=== PATIENT | female | born 1940 | race Caucasian/White ===

== ENCOUNTER 2022-05-05 11:21 | Outpatient (CLI) | payer MEDICARE, SELFPAY | END 2022-05-05 11:22 | disposition home or self-care (01) | LOC: AMB 05-13 12:50 | PROVIDERS: Visit Provider Family Medicine | DX: R42 Dizziness and giddiness (principal); R11.2 Nausea with vomiting, unspecified; R19.7 Diarrhea, unspecified | CPT/HCPCS: A0425; A0427 ==

== ENCOUNTER 2022-05-05 12:02 | Emergency (ER) | payer MEDICARE, SELFPAY ==
[2022-05-05] VITALS (9 sets, daily range): BP systolic 99–169; BP diastolic 44–69; PULSE 61–79; RESP 13–18; TEMP 36.3; O2SAT 96–100; BMI 21.5
--- NOTE | 2022-05-05 12:14 | ED_ITS ---
HPI - General Adult General Time Seen by Provider: 12:14 Date Seen: 05/05/22 Chief complaint: Nausea/Vomiting Stated complaint: Nausea, dizzy Time Seen by Provider: 05/05/22 12:05 Source: patient, EMS and RN notes reviewed Mode of arrival: EMS Limitations: no limitations History of Present Illness HPI narrative: Patient is a 81-year-old female brought in by ambulance for sudden onset of nausea vomiting. She states she has dizzy. It is not so much is spinning. She has had vertigo before but this is more a sense of feeling like she is moving. She does feels like she cannot control her body and it is continually moving. All of these symptoms hit her suddenly sometime she thinks between 9 and 10:00 p.m. she is not exactly sure of the time. She has just had profuse ongoing vomiting. It helps to hold still and keep her eye shut. There is some diarrhea. She was exposed to COVID about 4 days ago. She has had her COVID immunizations, has had boosters. No fevers chills, no respiratory symptoms associated with this. No numbness tingling or weakness per se but absolutely does not think she would be able to toe walk. EMS was called due to the severit y of her symptoms. They did give her 4 mg IV Zofran in route, obviously started an IV. They had a 500 mL normal saline bag hanging as well. No abdominal pain, no headache. Related Data Previous Rx's Medication Instructions Recorded ondansetron 4 mg disintegrating 4 mg PO Q6H #10 tabs 05/05/22 tablet Allergies Allergy/AdvReac Type Severity Reaction Status Date / Time No Known Drug Allergies Allergy Verified 05/05/22 12:49 Review of Systems Status of ROS: Reports: 10 or more systems reviewed and unremarkable except as noted in History and below PFSH PFSH Social History Smoking Status: Never smoker Do you use any of these nicotine containing products: None Second hand tobacco smoke exposure: No How often do you have a drink containing alcohol: monthly or less How many standard drinks containing alcohol do you have on a typical day: 1 or 2 How often do you have six or more drinks on one occasion: Never AUDIT-C Alcohol total score: 1 Non-prescribed substance use: denies use service: No Exam Const: Vital Signs, click to edit/add: Vital Signs - 24 hr 05/05/22 12:11 05/05/22 13:04 05/05/22 12:47 Temperature 97.3 F L Pulse Rate [Right Pulse Oximeter] 73 67 75 Respiratory Rate 18 16 14 Blood Pressure [Ri ght Upper Arm] 169/68 H 120/50 L 115/57 L Pulse Oximetry 96 100 97 Oxygen Delivery Me thod Room Air Room Air Room Air 05/05/22 14:30 05/05/22 14:00 05/05/22 13:30 Temperature Pulse Rate [Right Pulse Oximeter] 61 61 61 Respiratory Rate 14 Blood Pressure [Ri ght Upper Arm] 121/59 L 115/55 L 99/44 L Pulse Oximetry 98 98 97 Oxygen Delivery Me thod Room Air Room Air Room Air Documenting provider has reviewed patient's vital signs: yes Common normals: average body habitus, oriented x3, healthy appearing and alert General appearance: cooperative and in distress mild HENMT: Common normals: normocephalic, head/scalp atraumatic, hearing grossly normal bilaterally, external ears normal, external nose normal, nasal mucous membranes and turbinates normal, moist oral mucous membranes, oropharynx normal, dentition normal and gingiva normal Head and scalp: normocephalic and atraumatic Nose: external nose normal and nasal mucous membranes and turbinates normal External ear: external ears normal Eye: Common normals: PERRL, EOMs intact bilaterally (Do not elicit any nystagmus), conjunctivae normal and no scleral icterus Conjunctiva: conjunctiva(e) normal Pupil: PERRL Neck & C-Spine: Common normals: full ROM, no lymphadenopathy, supple, no meningeal signs, no JVD and thyroid normal Thyroid: thyroid normal Resp: Common normals: normal respiratory effort, no retractions, no use of accessory muscles and clear to auscultation bilaterally Auscultation: clear to auscultation bilaterally Cardio: Common normals: no JVD, regular rate, regular rhythm, S1 normal heart sound, S2 normal heart sound, no gallops, no clicks, no murmurs and no rub Rate: regular rate Rhythm: regular rhythm Heart sounds: S1 normal and S2 normal GI: Common normals: Normal to inspection, nondistended, normoactive bowel sounds present, soft to palpation, non-tender, no hepatosplenomegaly and no masses Palpation: soft and no hepatosplenomegaly Extremity: Common normals: normal to inspection, full ROM, normal capillary refill, no joint enlargement, no clubbing, cyanosis or edema, no calf tenderness and no pedal edema Neuro: [place] Coma Scale: document GCS findings Era coma scale eye opening: Spontaneous (4) Era coma scale verbal response: Orientated (5) Era coma scale motor response: Obey commands (6) [place] coma scale total score: 15 Common normals: oriented x3, CN's II-XII intact bilaterally, moves all extremities, no focal motor deficits and no sensory deficits noted Sensorium/orientation: alert Meningeal signs: no meningeal signs Skin: Common normals: no rashes or lesions noted, no wounds, skin turgor normal, no jaundice, no petechiae and no mottling General skin exam: no rashes or lesions noted and turgor normal Course Course Hospital Course: She will be on cardiac monitoring, pulse oximetry. Will finish the 500 mL fluids, give her 0.5 mg IV Ativan and see how she does. She still feeling significant nausea and had reported the an emesis of undigested food on arrival here. Will get appropriate labs. If the Ativan does help settle her symptoms, will try oral meclizine. Have done COVID testing. This sounds to be more consistent with a vertiginous type issue. She is unsure of the time frame we are probably somewhere within 3-4 hours of onset of symptoms. Vascular disease is 1 of the potential etiologies, would need to consider an MRI to better differentiate this. This time will will see if we can control her symptoms with medications, for unsuccessful may need to consider more advanced neuro imaging. Reevaluation(s) Reevaluation #1: Patient is check done, states she is still feeling nauseated but no longer is hanging onto emesis bag. She is resting more comfortably. She states she just feels really tired and weak. She indeed had more than 1 episode of diarrhea with the symptoms prior to arrival. She states they came on so suddenly that was sister shocked her system. When asked if she was still feeling dizzy, she states it was never spinning sensation it is just her equilibrium is off. She is still reportedly feeling this disequilibrium and nausea. I am going to order meclizine, await some of her labs. Overall clinically she looks like she is doing a bit better. Time: 13:18 Reevaluation #2: Patient's family members are with her as her COVID is come back negative. She is doing better. She rested. She states the sense of disequilibrium is a feeling that she is being pulled. Her nausea vomiting diarrhea at this time have abated. Have reviewed with her that this most logically is a gastroenteritis type picture, hopefully viral in short-lived. Given the fact that she was having diarrhea with this, it really does point more to a GI etiology. She has no fevers, no abdominal pain, do not feel imaging is necessary. We are going to ambulate her and see if she feels improved enough to go home. My plan will be to discharge her home with some Zofran knowing that symptoms might be present if this is a GI bug. Time: 14:45 Reevaluation #3: Ran into patient as she is ambulating in the halls. She is very verbose and talkative. She is ambulatory without any aids in states her imbalanced is better. She is worried about return of vomiting and reviewed with her that that certainly could happen but we would send her with some Zofran. She has not had any emesis since arrival. I a.m. think at this time it is safe to do a trial of ongoing management at home. She understands if her symptoms do worsen that she is always able to return to our ED. Time: 15:25 Vital Signs Vital signs: Initial Vital Signs Temperature 97.3 F L 05/05/22 12:11 Temperature Source Temporal Artery Scan 05/05/22 12:11 Pulse Rate 73 05/05/22 12:11 Respiratory Rate 18 05/05/22 12:11 Blood Pressure 169/68 H 05/05/22 12:11 Blood Pressure Mean 101 05/05/22 12:11 Blood Pressure Position Sitting 05/05/22 12:11 Pulse Oximetry 96 05/05/22 12:11 Oxygen Delivery Method 05/05/22 12:11 Vital Signs Temperature 97.3 F L 05/05/22 12:11 Pulse Rate 73 05/05/22 12:11 Respiratory Rate 18 05/05/22 12:11 Blood Pressure 169/68 H 05/05/22 12:11 Pulse Oximetry 96 05/05/22 12:11 Oxygen Delivery Method 05/05/22 12:11 Temperature 97.3 F L 05/05/22 12:11 Pulse Rate 61 05/05/22 14:30 Respiratory Rate 14 05/05/22 14:00 Blood Pressure 121/59 L 05/05/22 14:30 Pulse Oximetry 98 05/05/22 14:30 Oxygen Delivery Method 05/05/22 14:30 Medical Decision Making Lab Data Lab results reviewed: Yes I reviewed the patient's lab results Labs: Lab Results 05/05/22 05/05/22 05/05/22 Range/Units 12:10 12:52 12:52 WBC 6.36 (4.50-11.00) K/uL RBC 4.09 (4.00-5.20) m/uL Hgb 12.9 (12.0-16.0) gm/dL Hct 40.0 (33.0-51.0) % MCV 98 (80-100) fL MCH 32 (26-34) pg MCHC 32 (32-36) gm/dL RDW Coeff of Norbert 12.9 (11.5-15.5) % Plt Count 183 (140-440) K/uL Neut % (Auto) 83.9 H (42.0-72.0) % Lymph % (Auto) 9.6 L (20-44) % [place] % (Auto) 4.4 (0.0-11.0) % Eos % (Auto) 1.1 (0.0-7.0) % Baso % (Auto) 0.5 (0.0-3.0) % Neut # (Auto) 5.30 (1.7-7.0) K/uL Lymph # (Auto) 0.60 L (0.90-2.90) K/uL [place] # (Auto) 0.30 (0.00-0.90) K/UL Eos # (Auto) 0.07 (0.00-0.50) K/uL Baso # (Auto) 0.03 (0.00-0.30) K/uL Abs Immat Gran (auto) 0.03 (0.00-0.30) K/uL Sodium 139 (135-149) mmol/L Potassium 4.1 (3.6-5.1) mmol/L Chloride 103 (96-114) mmol/L Carbon Dioxide 29 (20-32) mmol/L BUN 27 (7-30) mg/dL Creatinine 0.7 (0.5-1.5) mg/dL Estimated Creat Clear 32.23 Estimated GFR 87 ml/min Glucose 177 H (60-115) mg/dL Calcium 8.8 (8.4-10.6) mg/dL Magnesium (1.5-2.6) mg/dL Total Bilirubin 0.5 (0.1-1.5) mg/dL AST 24 (12-35) U/L ALT 16 (4-35) U/L Alkaline Phosphatase 79 (40-150) U/L C-Reactive Protein < 0.5 L (0.5-1.0) mg/dL Total Protein 7.1 (6.0-8.3) g/dL Albumin 4.3 (3.3-5.0) g/dL TSH (0.270-4.200) uIU/mL SARS-CoV-2 (PCR) Negative SARS-CoV-2 (Negative) 05/05/22 05/05/22 Range/Units 12:52 12:52 WBC (4.50-11.00) K/uL RBC (4.00-5.20) m/uL Hgb (12.0-16.0) gm/dL Hct (33.0-51.0) % MCV (80-100) fL MCH (26-34) pg MCHC (32-36) gm/dL RDW Coeff of Norbert (11.5-15.5) % Plt Count (140-440) K/uL Neut % (Auto) (42.0-72.0) % Lymph % (Auto) (20-44) % [place] % (Auto) (0.0-11.0) % Eos % (Auto) (0.0-7.0) % Baso % (Auto) (0.0-3.0) % Neut # (Auto) (1.7-7.0) K/uL Lymph # (Auto) (0.90-2.90) K/uL [place] # (Auto) (0.00-0.90) K/UL Eos # (Auto) (0.00-0.50) K/uL Baso # (Auto) (0.00-0.30) K/uL Abs Immat Gran (auto) (0.00-0.30) K/uL Sodium (135-149) mmol/L Potassium (3.6-5.1) mmol/L Chloride (96-114) mmol/L Carbon Dioxide (20-32) mmol/L BUN (7-30) mg/dL Creatinine (0.5-1.5) mg/dL Estimated Creat Clear Estimated GFR ml/min Glucose (60-115) mg/dL Calcium (8.4-10.6) mg/dL Magnesium 1.9 (1.5-2.6) mg/dL Total Bilirubin (0.1-1.5) mg/dL AST (12-35) U/L ALT (4-35) U/L Alkaline Phosphatase (40-150) U/L C-Reactive Protein (0.5-1.0) mg/dL Total Protein (6.0-8.3) g/dL Albumin (3.3-5.0) g/dL TSH 0.997 (0.270-4.200) uIU/mL SARS-CoV-2 (PCR) (Negative) ECG Data Attestation: I personally reviewed and interpreted this ECG as follows: (Sinus rhythm, 71 beats per minute. No acute abnormality.) Prior ECG tracings: not available for review Critical Care Time Critical Care Time Critical Care Time: No Discharge Plan Discharge Clinical Impression: Gastroenteritis Patient Disposition: Home, Self-Care Condition: Stable Instructions: Gastroenteritis (ED) Additional Instructions: Start with frequent sips of clear liquids overnight, if feeling better in the morning can try advancing your diet back to normal. Can not use the Zofran as prescribed if your nausea and vomiting return. If the Zofran is not controlling these symptoms, develops severe abdominal pain or fever with UR symptoms, do need to seek re-evaluation. Activity Level: Activity as Tolerated Prescriptions: New ondansetron 4 mg tablet,disintegrating 4 mg PO Q6H Qty: 10 0RF Stand Alone Forms: [facility] Info Instructions
[2022-05-05] MEDS: LORazepam 2 MG/ML inj 0.5 MG IVP (12:50)
[2022-05-05 13:01] LABS: Basophils Absolute Auto 0.03 K/uL (0.00-0.30); Basophils Percent Auto 0.5 % (0.0-3.0); Eosinophils Absolute Auto 0.07 K/uL (0.00-0.50); Eosinophils Percent Auto 1.1 % (0.0-7.0); Hemoglobin* 12.9 gm/dL (12.0-16.0); Immature Granulocytes Abs Auto 0.03 K/uL (0.00-0.30); Lymphocytes Percent Auto 9.6 % (20-44); Mean Corpuscular HGB Conc 32 gm/dL (32-36); Mean Corpuscular Hemoglobin 32 pg (26-34); Mean Corpuscular Volume 98 fL (80-100); Monocytes Percent Auto 4.4 % (0.0-11.0); Neutrophils Percent Auto 83.9 % (42.0-72.0); Platelet Count* 183 K/uL (140-440); RDW Coefficient of Variation % 12.9 % (11.5-15.5); Red Blood Count 4.09 m/uL (4.00-5.20); White Blood Count* 6.36 K/uL (4.50-11.00)
[2022-05-05 13:05] LABS: Slide Review Reflex No
[2022-05-05 13:14] LABS: SARS PCR* Negative SARS-CoV-2 (Negative)
[2022-05-05 13:15] LABS: Albumin* 4.3 g/dL (3.3-5.0); Chloride* 103 mmol/L (96-114); Sodium* 139 mmol/L (135-149)
[2022-05-05 13:16] LABS: Potassium* 4.1 mmol/L (3.6-5.1)
[2022-05-05 13:18] LABS: Creatinine* 0.7 mg/dL (0.5-1.5); Est. Creatinine Clearance* 32.23; Estimated Glomerular Filt Rate 87 ml/min
[2022-05-05 13:19] LABS: Alanine Aminotransferase* 16 U/L (4-35); Alkaline Phosphatase* 79 U/L (40-150); Aspartate Amino Transferase* 24 U/L (12-35); Bilirubin Total* 0.5 mg/dL (0.1-1.5); Blood Urea Nitrogen* 27 mg/dL (7-30); Calcium* 8.8 mg/dL (8.4-10.6); Carbon Dioxide* 29 mmol/L (20-32); Glucose* 177 mg/dL (60-115); Total Protein* 7.1 g/dL (6.0-8.3)
[2022-05-05 13:20] LABS: Magnesium* 1.9 mg/dL (1.5-2.6)
[2022-05-05 13:23] LABS: C Reactive Protein* < 0.5 mg/dL (0.5-1.0)
[2022-05-05] MEDS: 0.9 % SODIUM CHLORIDE 500 ML 500 ML IV (13:43)
[2022-05-05] MEDS: MECLIZINE HCL 25 MG TABLET PO (13:45)
[2022-05-05 14:03] LABS: TSH With Reflex to FT4* 0.997 uIU/mL (0.270-4.200)
--- NOTE | 2022-05-05 15:20 | ED.NURSE ---
was able to walk around the nurses' station. does have osteoporosis and curvature of the neck. dr kraft saw here and is ok with dc. no further nausea. feels as though she may go home. in room and is very supportive,
--- NOTE | 2022-05-07 17:16 | ED.NURSE ---
[facility] called for details on rx for Zofran. Details from [facility] info provided to [facility] pharmacist
== END 2022-05-05 15:46 | disposition home or self-care (01) ==
PROVIDERS: Emergency Provider Family Medicine
DX: K52.9 Noninfective gastroenteritis and colitis, unspecified (principal)
CPT/HCPCS: 36415; 80053; 83735; 84443; 85025; 86140; 87635; 93005; 96374; 99284; A9270; J2060; J7120

== ENCOUNTER 2022-05-10 11:08 | Emergency (ER) | payer MEDICARE, SELFPAY ==
[2022-05-10 11:13] VITALS: BP 190/94; PULSE 91; RESP 20; TEMP 36; O2SAT 98; BMI 22.2
--- NOTE | 2022-05-10 12:11 | CRLHL7_ITS ---
For Patients: As a result of the Century Cures Act, medical imaging exams and procedure reports are released immediately into your electronic medical record. You may view this report before your referring provider. If you have questions, please contact your health care provider. HISTORY: Pain. Constipation. TECHNIQUE: CT abdomen and pelvis with IV contrast. 54 mL [id number] IV. COMPARISON: None. FINDINGS: Abdomen: No liver lesions. No bile duct dilation. No pancreatic mass or pancreatic duct dilation. Calcified granulomas in the spleen. No adrenal nodules. Kidneys enhance symmetrically. 3.2 cm cyst in the mid right kidney. 2.2 cm cyst in the mid left kidney. A few subcentimeter hypodense lesions in the kidneys are too small to characterize but are likely cysts. Prominent extrarenal pelvis bilaterally. No hydronephrosis. No dilated bowel. Moderate amount of stool in the colon. Appendix is unremarkable. No free fluid. No lymphadenopathy. Atherosclerosis. Abdominal aorta is normal caliber. Pelvis: No lymphadenopathy. Musculoskeletal: Degenerative changes of the spine. Lower chest: Mild subpleural scarring in the right middle lobe. IMPRESSION: 1. No acute abnormality in the abdomen or pelvis. 2. Moderate amount of stool in the colon. Please note that all CT scans at this facility use dose modulation, iterative reconstruction, and/or weight-based dosing when appropriate to reduce radiation dose to as low as reasonably achievable. Dictated by Macio Benítez MD @ 05/10/2022 2:17:11 PM (Electronically Signed)
--- NOTE | 2022-05-10 12:17 | ED_ITS ---
HPI - General Adult General Chief complaint: Constipation Stated complaint: Abdominal Pain Time Seen by Provider: 05/10/22 11:15 History of Present Illness HPI narrative: This 81-year-old female comes in with family member and reports constipation with no bowel movement for the past 5 days. She was seen 5 days ago in the emergency room here because of diarrhea and vertigo symptoms. She states that she has been having ongoing bowel issues for the past couple months and has had recurrent constipation symptoms. She did receive a large enema that was effective a couple months ago but she feels like something is wrong since then. She states that she is concerned that she may have a perforation. She thinks that her rectum is shredded. She is frequently repeating herself and often is interrupting to do so. She has a fair amount of anxiety about her bowels. She arrives with normal vital signs. Her blood pressure is elevated. Related Data Previous Rx's Medication Instructions Recorded ondansetron 4 mg disintegrating 4 mg PO Q6H #10 tabs 05/05/22 tablet Allergies Allergy/AdvReac Type Severity Reaction Status Date / Time No Known Drug Allergies Allergy Verified 05/10/22 13:48 Review of Systems Status of ROS: Reports: 10 or more systems reviewed and unremarkable except as noted in History and below Narrative: Constitutional: No fevers, no weight gain or loss. Eyes: No discharge. No vision changes. HENT: No congestion, no sore throat, no ear pain. Cardiovascular: No chest pain, no palpitations. Respiratory: No shortness of breath, no wheezes, no cough. Gastrointestinal: Crampy abdominal pain. Constipation. She has had some nausea but has had a normal appetite recently. Genitourinary: No dysuria, no hematuria. Musculoskeletal: Normal range of motion. Skin: No rashes, no pruritis. Neurological: No dizziness, weakness, sensory change, speech change. Endo/Heme/Allergies: No bruising or bleeding. No polydipsia. Pysch: no suicidality, no anxiety, no insomnia. All other systems reviewed and are negative. PFSH PFSH Social History Smoking Status: Never smoker Do you use any of these nicotine containing products: None Second hand tobacco smoke exposure: No How often do you have a drink containing alcohol: monthly or less How many standard drinks containing alcohol do you have on a typical day: 1 or 2 How often do you have six or more drinks on one occasion: Never AUDIT-C Alcohol total score: 1 Non-prescribed substance use: denies use service: No Exam Narrative: Exam Narrative: Constitutional: Well-developed, well-nourished, no acute distress. HEENT: Normocephalic, atraumatic. Neck: Normal range of motion. Nontender. Supple. Heart: Regular. No murmurs. Normal rate. Intact distal pulses. Lungs: Clear to auscultation. No chest discomfort. No wheezes, rhonchi, or rales. Abdomen: Normal bowel sounds. No distinct tenderness. Her abdomen does not appear distended. No rebound tenderness. Genitalia: Deferred. Back: No midline tenderness. Normal range of motion. Extremities: Normal range of motion. No injury. Skin: Intact. No rash. Warm. No erythema or pallor. Neurologic: No altered sensation. No weakness. Alert and oriented. Psychiatric: No suicidality. No depression. No insomnia. She appears very anxious about her abdomen and bowel function. Nursing notes and vitals signs are reviewed. Const: Vital Signs, click to edit/add: Vital Signs - 24 hr 05/10/22 11:13 Temperature 96.8 F L Pulse Rate [Pulse Oximeter] 91 Respiratory Rate 20 Blood Pressure [Ri ght Upper Arm] 190/94 H Pulse Oximetry 98 Oxygen Delivery Me thod Room Air Course Vital Signs Vital signs: Initial Vital Signs Temperature 96.8 F L 05/10/22 11:13 Temperature Source Temporal Artery Scan 05/10/22 11:13 Pulse Rate 91 05/10/22 11:13 Respiratory Rate 20 05/10/22 11:13 Blood Pressure 190/94 H 05/10/22 11:13 Blood Pressure Mean 126 05/10/22 11:13 Blood Pressure Position Supine 05/10/22 11:13 Pulse Oximetry 98 05/10/22 11:13 Oxygen Delivery Method 05/10/22 11:13 Vital Signs Temperature 96.8 F L 05/10/22 11:13 Pulse Rate 91 05/10/22 11:13 Respiratory Rate 20 05/10/22 11:13 Blood Pressure 190/94 H 05/10/22 11:13 Pulse Oximetry 98 05/10/22 11:13 Oxygen Delivery Method 05/10/22 11:13 Temperature 96.8 F L 05/10/22 11:13 Pulse Rate 91 05/10/22 11:13 Respiratory Rate 20 05/10/22 11:13 Blood Pressure 190/94 H 05/10/22 11:13 Pulse Oximetry 98 05/10/22 11:13 Oxygen Delivery Method 05/10/22 11:13 Medical Decision Making MDM Narrative Medical decision making narrative: This patient comes in reporting constipation and variety of symptoms for which she is rather anxious about. She was seen 5 days ago and had labs done at that time. Her exam is rather normal and she is not showing any signs of an acute abdomen. Nevertheless given her anxiety and constellation of worries and concerns about her abdomen I ordered a CT scan with IV contrast. This returns with no acute findings. She does have a moderate amount of stool in the colon. Additionally lab results are in normal range including a normal sed rate. The patient was able to have a bowel movement but states that she was afraid to do so without having a nurse nearby NK she symptoms of vertigo or lightheadedness. She feels okay to return home at this time to continue current plans. I advised using fiber additive to her diet to help normalize her stools. Lab Data Labs: Lab Results 05/10/22 05/10/22 05/10/22 Range/Units 12:25 12:25 12:25 WBC 3.72 L (4.50-11.00) K/uL RBC 4.41 (4.00-5.20) m/uL Hgb 13.8 (12.0-16.0) gm/dL Hct 42.3 (33.0-51.0) % MCV 96 (80-100) fL MCH 31 (26-34) pg MCHC 33 (32-36) gm/dL RDW Coeff of Norbert 12.6 (11.5-15.5) % Plt Count 209 (140-440) K/uL Neut % (Auto) 67.2 (42.0-72.0) % Lymph % (Auto) 21.8 (20-44) % [place] % (Auto) 8.3 (0.0-11.0) % Eos % (Auto) 1.6 (0.0-7.0) % Baso % (Auto) 0.8 (0.0-3.0) % Neut # (Auto) 2.50 (1.7-7.0) K/uL Lymph # (Auto) 0.80 L (0.90-2.90) K/uL [place] # (Auto) 0.30 (0.00-0.90) K/UL Eos # (Auto) 0.10 (0.00-0.50) K/uL Baso # (Auto) 0.00 (0.00-0.30) K/uL Abs Immat Gran (auto) 0.01 (0.00-0.30) K/uL ESR 12 (2-20) mm/hr Sodium 140 (135-149) mmol/L Potassium 4.0 (3.6-5.1) mmol/L Chloride 102 (96-114) mmol/L Carbon Dioxide 32 (20-32) mmol/L BUN 21 (7-30) mg/dL Creatinine 0.7 (0.5-1.5) mg/dL Estimated Creat Clear 35.34 Estimated GFR 87 ml/min Glucose 106 (60-115) mg/dL Calcium 9.5 (8.4-10.6) mg/dL Imaging Data CT scan - abdomen: Radiologist's impression: 1. No acute abnormality in the abdomen or pelvis. 2. Moderate amount of stool in the colon. Discharge Plan Discharge Clinical Impression: Constipation Condition: Stable Instructions: Constipation (ED) Additional Instructions: Continue current plans. Follow up with primary providers as needed and scheduled. Return if worsening. Prescriptions: No Action ondansetron 4 mg tablet,disintegrating 4 mg PO Q6H Qty: 10 0RF Follow Up/Referrals: Provider,Not a Local [Primary Care Provider] - Stand Alone Forms: [facility] Info Instructions
[2022-05-10 12:47] LABS: Basophils Percent Auto 0.8 % (0.0-3.0); Eosinophils Percent Auto 1.6 % (0.0-7.0); Hematocrit 42.3 % (33.0-51.0); Hemoglobin* 13.8 gm/dL (12.0-16.0); Immature Granulocytes Abs Auto 0.01 K/uL (0.00-0.30); Lymphocytes Percent Auto 21.8 % (20-44); Mean Corpuscular HGB Conc 33 gm/dL (32-36); Mean Corpuscular Hemoglobin 31 pg (26-34); Mean Corpuscular Volume 96 fL (80-100); Monocytes Percent Auto 8.3 % (0.0-11.0); Neutrophils Percent Auto 67.2 % (42.0-72.0); Platelet Count* 209 K/uL (140-440); RDW Coefficient of Variation % 12.6 % (11.5-15.5); Red Blood Count 4.41 m/uL (4.00-5.20); White Blood Count* 3.72 K/uL (4.50-11.00)
[2022-05-10 12:54] LABS: Slide Review Reflex No
[2022-05-10 13:01] LABS: Chloride* 102 mmol/L (96-114); Sodium* 140 mmol/L (135-149)
[2022-05-10 13:04] LABS: Creatinine* 0.7 mg/dL (0.5-1.5); Est. Creatinine Clearance* 35.34; Estimated Glomerular Filt Rate 87 ml/min
[2022-05-10 13:05] LABS: Blood Urea Nitrogen* 21 mg/dL (7-30); Calcium* 9.5 mg/dL (8.4-10.6); Carbon Dioxide* 32 mmol/L (20-32); Glucose* 106 mg/dL (60-115)
[2022-05-10 13:52] LABS: Erythrocyte SedimentationRate* 12 mm/hr (2-20)
[2022-05-10 15:45] VITALS: BP 146/82; PULSE 88; RESP 18; TEMP 36.1
== END 2022-05-10 15:48 | disposition home or self-care (01) ==
PROVIDERS: Emergency Provider Emergency Medicine Emergency Medical Services
DX: K59.00 Constipation, unspecified (principal)
CPT/HCPCS: 36415; 74177; 80048; 84443; 85025; 85651; 99284; Q9967

== ENCOUNTER 2023-06-25 16:28 | Outpatient (CLI) | payer MEDICARE, SELFPAY | END 2023-06-25 16:29 | disposition home or self-care (01) | LOC: AMB 06-27 11:04 | PROVIDERS: PCP Family Medicine; Visit Provider Family Medicine | DX: R42 Dizziness and giddiness (principal); I10 Essential (primary) hypertension | CPT/HCPCS: A0425; A0427 ==

== ENCOUNTER 2023-06-25 16:58 | Emergency (ER) | payer MEDICARE, SELFPAY ==
[2023-06-25] VITALS (12 sets, daily range): BP systolic 140–165; BP diastolic 67–85; PULSE 67–81; TEMP 36.6; O2SAT 95–98; BMI 20.9
--- NOTE | 2023-06-25 17:00 | ED.NURSE ---
stroke code called per pt meeting criteria, (dizziness and over the age of 65)
--- NOTE | 2023-06-25 17:04 | ED.NURSE ---
gave verbal order to cancel stroke code after evaluation.
--- NOTE | 2023-06-25 17:13 | ED.DIZZY ---
HPI - Dizziness General Chief Complaint: Dizziness/Vertigo Stated Complaint: Dizzy Time Seen by Provider: 06/25/23 17:07 History of Present Illness HPI Narrative: This 83-year-old female comes in by ambulance after attempting to call clinic when she was describing some symptoms of dizziness. The phone referral nurse said she should come into the emergency department by ambulance. She states that she felt dizzy when getting up but if she remains still she does not have any disease symptoms. She clarifies dizziness to mean vertigo, a sense of spinning or movement. She had some associated nausea with this. She does not report any headache or injury event. She did receive Zofran EN route and states that she no longer has any nausea which is related to her vertigo symptoms. She does not have any vertigo symptoms currently. She does not report any headache. She states that she had a recent MRI. She states that this vertigo symptoms started at about 1:00 a.m. which is a bit more than 4 hours prior to arrival here. She does not describe any weakness or altered sensation. Related Data Previous Rx's Medication Instructions Recorded meclizine 25 mg tablet 25 mg PO QID #20 tabs 06/25/23 ondansetron HCl 4 mg tablet 4 mg PO Q6H #20 tabs 06/25/23 Allergies Allergy/AdvReac Type Severity Reaction Status Date / Time pseudoephedrine AdvReac Intermediate Hypertensio Verified 06/25/23 17:12 n amoxicillin AdvReac Mild Verified 06/25/23 17:12 ibuprofen AdvReac Mild Palpitation Verified 06/25/23 17:12 s levofloxacin AdvReac Verified 06/25/23 17:12 Review of Systems Status of ROS: Reports: 10 or more systems reviewed and unremarkable except as noted in History and below Narrative: Constitutional: No fevers, no weight gain or loss. Eyes: No discharge. No vision changes. HENT: No congestion, no sore throat, no ear pain. Cardiovascular: No chest pain, no palpitations. Respiratory: No shortness of breath, no wheezes, no cough. Gastrointestinal: No abdominal pain, no vomiting, no diarrhea. Genitourinary: No dysuria, no hematuria. Musculoskeletal: Normal range of motion. Skin: No rashes, no pruritis. Neurological: No weakness, sensory change, speech change. Vertigo symptoms as described above. Endo/Heme/Allergies: No bruising or bleeding. No polydipsia. Pysch: no suicidality, no anxiety, no insomnia. All other systems reviewed and are negative. PFSH PFSH Social History Smoking Status: Never smoker Do you use any of these nicotine containing products: None Second hand tobacco smoke exposure: No How often do you have a drink containing alcohol: monthly or less How many standard drinks containing alcohol do you have on a typical day: 1 or 2 How often do you have six or more drinks on one occasion: Never AUDIT-C Alcohol total score: 1 Non-prescribed substance use: denies use service: No Exam Narrative: Exam Narrative: Constitutional: Well-developed, well-nourished, no acute distress. HEENT: Normocephalic, atraumatic. Neck: Normal range of motion. Nontender. Supple. Heart: Regular. No murmurs. Normal rate. Intact distal pulses. Lungs: Clear to auscultation. No chest discomfort. No wheezes, rhonchi, or rales. Abdomen: Normal bowel sounds. Nontender. No rebound tenderness. Genitalia: Deferred. Back: No midline tenderness. Normal range of motion. Extremities: Normal range of motion. No injury. Skin: Intact. No rash. Warm. No erythema or pallor. Neurologic: No altered sensation. No weakness. Alert and oriented. No facial asymmetry. Tongue is midline. Cgcnaq-[id number] is normal. No pronator drift. Sheriff strength is equal bilaterally. She is able to raise each leg to my hand without difficulty. Psychiatric: No suicidality. No anxiety or depression. No insomnia. Nursing notes and vitals signs are reviewed. Const: Vital Signs, click to edit/add: Vital Signs - 24 hr 06/25/23 17:04 06/25/23 17:05 06/25/23 17:12 Temperature 97.8 F Pulse Rate 79 81 Pulse Rate [Pulse Oximeter] 75 Blood Pressure 165/78 H Blood Pressure [Le ft Upper Arm] 165/78 H Pulse Oximetry 95 97 98 Oxygen Delivery Me thod Room Air 06/25/23 17:30 06/25/23 17:32 06/25/23 18:00 Temperature Pulse Rate 71 67 78 Pulse Rate [Pulse Oximeter] Blood Pressure 140/67 H Blood Pressure [Le ft Upper Arm] Pulse Oximetry 95 95 97 Oxygen Delivery Me thod 06/25/23 18:02 Temperature Pulse Rate 70 Pulse Rate [Pulse Oximeter] Blood Pressure 154/72 H Blood Pressure [Le ft Upper Arm] Pulse Oximetry 97 Oxygen Delivery Me thod Course Vital Signs Vital signs: Initial Vital Signs Pulse Rate 79 06/25/23 17:04 Blood Pressure 165/78 H 06/25/23 17:04 Blood Pressure Mean 107 H 06/25/23 17:04 Pulse Oximetry 95 06/25/23 17:04 Vital Signs Pulse Rate 79 06/25/23 17:04 Blood Pressure 165/78 H 06/25/23 17:04 Pulse Oximetry 95 06/25/23 17:04 Temperature 97.8 F 06/25/23 17:12 Pulse Rate 70 06/25/23 18:02 Blood Pressure 154/72 H 06/25/23 18:02 Pulse Oximetry 97 06/25/23 18:02 Oxygen Delivery Method Room Air 06/25/23 17:12 MDM - Dizziness MDM Narrative Medical decision making narrative: This patient arrives with a report of dizziness which she clarifies as vertigo symptoms that occur only when she stands up. She does not report lightheadedness but rather a sense of movement that is positional. Because she reported dizziness a stroke code was initiated. IA presented to the room immediately after the stroke code was announced and did an evaluation. She is not showing any sign of neurologic deficit. Her GCS is 15. I called off the stroke code seeing her normal functions and exam. The patient states that she had an MRI done recently. This report was reviewed by me which shows no acute findings. Lab results returned with reassuring findings also. The patient is not showing any signs of discomfort. She did receive an oral dose of Zofran EN route here and after arriving she received an oral dose of meclizine. The patient was able to get up and ambulate and is okay to be discharged home. She did received prescriptions for meclizine and Zofran. I advised her to follow-up with her primary physician for ongoing management. Lab Data Labs: Lab Results 06/25/23 06/25/23 Range/Units 17:20 17:39 WBC 4.95 (4.50-11.00) K/uL RBC 4.13 (4.00-5.20) m/uL Hgb 13.1 (12.0-16.0) gm/dL Hct 40.4 (33.0-51.0) % MCV 98 (80-100) fL MCH 32 (26-34) pg MCHC 32 (32-36) gm/dL RDW Coeff of Norbert 12.6 (11.5-15.5) % Plt Count 199 (140-440) K/uL Neut % (Auto) 70.1 (42.0-72.0) % Lymph % (Auto) 19.6 L (20-44) % [place] % (Auto) 7.9 (0.0-11.0) % Eos % (Auto) 1.2 (0.0-7.0) % Baso % (Auto) 0.6 (0.0-3.0) % Neut # (Auto) 3.47 (1.7-7.0) K/uL Lymph # (Auto) 1.00 (0.90-2.90) K/uL [place] # (Auto) 0.40 (0.00-0.90) K/UL Eos # (Auto) 0.06 (0.00-0.50) K/uL Baso # (Auto) 0.03 (0.00-0.30) K/uL Abs Immat Gran (auto) 0.03 (0.00-0.30) K/uL Imm/Tot Granulo (auto) 0.6 % Sodium 140 (135-149) mmol/L Potassium 4.0 (3.6-5.1) mmol/L Chloride 106 (96-114) mmol/L Carbon Dioxide 28 (20-32) mmol/L Anion Gap 6 L (7-15) mEq/L BUN 30 (7-30) mg/dL Creatinine 0.7 (0.5-1.5) mg/dL Estimated Creat Clear 35.88 Estimated GFR 86 ml/min Glucose 100 (60-115) mg/dL Calcium 9.4 (8.4-10.6) mg/dL Urine Color Yellow (Yellow) Urine Appearance Clear (Clear) Urine pH 7.0 (5.0-8.5) Ur Specific [place] 1.020 (1.000-1.030) Urine Protein Negative (Negative) Urine Glucose (UA) Negative (Negative) Urine Ketones Negative (Negative) Urine Blood Negative (Negative) Urine Nitrite Negative (Negative) Urine Bilirubin Negative (Negative) Urine Urobilinogen 0.2 (0.2-1.0) Ur Leukocyte Esterase Negative (Negative) Urine RBC 0-2 (0-2) Urine WBC 0-2 (0-5) Ur Squamous Epith Cells None (None-Few) Urine Bacteria None (None) POC Troponin I 0.00 L (0.01-0.04) ng/ml ECG Data Attestation: I personally reviewed and interpreted this ECG as follows: Interpretation: Normal sinus rhythm. Rate is 64 beats per minute. There are no ST or T-wave abnormalities. Discharge Plan Discharge Clinical Impression: Acute vestibular neuronitis Patient Disposition: Home w/ Parent or Adult Condition: Improved Additional Instructions: Take medication as needed and directed. Increase activity as tolerated. Follow up with MD return if worsening. Prescriptions: New ondansetron HCl 4 mg tablet 4 mg PO Q6H Qty: 20 0RF meclizine 25 mg tablet 25 mg PO QID Qty: 20 0RF Follow Up/Referrals: Provider,Not a Local [Referring] - Stand Alone Forms: [employer] Info Instructions
[2023-06-25 17:30] LABS: Basophils Absolute Auto 0.03 K/uL (0.00-0.30); Basophils Percent Auto 0.6 % (0.0-3.0); Eosinophils Absolute Auto 0.06 K/uL (0.00-0.50); Eosinophils Percent Auto 1.2 % (0.0-7.0); Hematocrit 40.4 % (33.0-51.0); Hemoglobin* 13.1 gm/dL (12.0-16.0); Immature Granulocytes Abs Auto 0.03 K/uL (0.00-0.30); Immature Granulocytes Pct Auto 0.6 %; Lymphocytes Percent Auto 19.6 % (20-44); Mean Corpuscular HGB Conc 32 gm/dL (32-36); Mean Corpuscular Hemoglobin 32 pg (26-34); Mean Corpuscular Volume 98 fL (80-100); Monocytes Percent Auto 7.9 % (0.0-11.0); Neutrophils Absolute Auto 3.47 K/uL (1.7-7.0); Neutrophils Percent Auto 70.1 % (42.0-72.0); Platelet Count* 199 K/uL (140-440); RDW Coefficient of Variation % 12.6 % (11.5-15.5); Red Blood Count 4.13 m/uL (4.00-5.20); White Blood Count* 4.95 K/uL (4.50-11.00)
[2023-06-25 17:43] LABS: Chloride* 106 mmol/L (96-114); Sodium* 140 mmol/L (135-149)
[2023-06-25] MEDS: MECLIZINE HCL 25 MG TABLET PO (17:43)
[2023-06-25 17:46] LABS: Anion Gap 6 mEq/L (7-15); Carbon Dioxide* 28 mmol/L (20-32); Creatinine* 0.7 mg/dL (0.5-1.5); Est. Creatinine Clearance* 35.88; Estimated Glomerular Filt Rate 86 ml/min
[2023-06-25 17:47] LABS: Blood Urea Nitrogen* 30 mg/dL (7-30); Calcium* 9.4 mg/dL (8.4-10.6); Glucose* 100 mg/dL (60-115)
[2023-06-25 17:57] LABS: Slide Review Reflex No
[2023-06-25 18:19] LABS: Appearance Urine Clear (Clear); Bilirubin Urine Negative (Negative); Blood Urine Negative (Negative); Color Urine Yellow (Yellow); Glucose Urine Negative (Negative); Ketones Urine Negative (Negative); Leukocyte Esterase Urine Negative (Negative); Nitrite Urine Negative (Negative); Protein Urine Negative (Negative); Urobilinogen Urine 0.2 (0.2-1.0)
[2023-06-25 18:29] LABS: RBC Urine 0-2 (0-2); WBC Urine 0-2 (0-5)
== END 2023-06-25 19:14 | disposition home or self-care (01) ==
PROVIDERS: Emergency Provider Emergency Medicine Emergency Medical Services; PCP Family Medicine
DX: H81.20 Vestibular neuronitis, unspecified ear (principal)
CPT/HCPCS: 36415; 80048; 81001; 84484; 85025; 93005; 99284; A9270

== ENCOUNTER 2024-04-03 16:49 | Emergency (ER) | payer MEDICARE, BC, SELFPAY ==
[2024-04-03 16:54] VITALS: BP 210/98; PULSE 95; RESP 18; TEMP 36.9; O2SAT 96; BMI 22.7
--- NOTE | 2024-04-03 17:05 | ED.GENADULT ---
HPI - General Adult General Date Seen: 04/03/24 Chief complaint: Fall/Minor Trauma Stated complaint: Fall - hit head and chest discomfort Time Seen by Provider: 04/03/24 17:05 History of Present Illness HPI narrative: This is an 83-year-old female accompanied to the ER this afternoon by her for evaluation of injuries after a ground level fall. She has a past medical history of vertigo, previous falls with multiple old cervical spine fractures, previous healed sternal fracture. She apparently had a fall on the ice that happened [place] about fiber 6 years ago leading to multiple neck fractures. She had another fall a couple years ago where her dog got into a tonsil with a larger dog and she fell and broke her sternum. It sounds like her sternum was managed conservatively and healed on its own. She fell again 6 days ago, last Wednesday, on March 28. She was in her driveway when she lost her balance and fell. It sounds like she fell and will over. She hit the back of her head against the concrete or black top and also her right shoulder and apparently hit hard enough on her shoulders that she felt her shoulder blades stuck together. She did have a occipital scalp hematoma that she can feel. She does not think she was knocked out. Since the fall she has noted some pain in her anterior chest and sternum. She says it really only hurts when she breathes deep or when she laughs. When she last she can feel the bones of her starting rubbing and moving. She spine trying to heal at home. She went to a physical therapist appointment today and when the therapist heard about the fall and the extent of the injuries her therapist insisted that she come to the ER to be checked out. Her has wanted to be checked out since last week, but she has been refusing. Related Data Home Medications ?Medication ?Instructions ?Recorded ?Confirmed aripiprazole 5 mg tablet 5 mg PO DAILY 11/07/23 11/07/23 fluticasone propionate 50 1 spray intranasal BID 11/07/23 11/07/23 mcg/actuation nasal spray,suspension Previous Rx's ?Medication ?Instructions ?Recorded meclizine 25 mg tablet 25 mg PO QID #20 tabs 06/25/23 ondansetron HCl 4 mg tablet 4 mg PO Q6H #20 tabs 06/25/23 Allergies Allergy/AdvReac Type Severity Reaction Status Date / Time pseudoephedrine AdvReac Intermediate Hypertensio Verified 11/07/23 13:56 n amoxicillin AdvReac Mild Verified 11/07/23 13:56 ibuprofen AdvReac Mild Palpitation Verified 11/07/23 13:56 s levofloxacin AdvReac Verified 11/07/23 13:56 PFSH PFSH Social History Smoking Status: Never smoker Do you use any of these nicotine containing products: None Second hand tobacco smoke exposure: No How often do you have a drink containing alcohol: monthly or less How many standard drinks containing alcohol do you have on a typical day: 1 or 2 How often do you have six or more drinks on one occasion: Never AUDIT-C Alcohol total score: 1 Non-prescribed substance use: denies use service: No Exam Narrative: Exam Narrative: Constitutional: Appears well-developed and well-nourished. Alert. Conversant, and very talkative. She is extremely detailed but somewhat non chronological historian. She is retired nurse. Non toxic. HENT: Head: She has a healing occipital/vertex scalp hematoma. No palpable underlying skull fracture. No raccoon eyes or Diaz sign. Nose: Nose normal. Mouth/Throat: Oral mucosa is clear and moist. no trismus. Pharynx normal. Tonsils symmetric. No tonsillar enlargement, erythema, or exudate. Eyes: Conjunctivae normal. EOM normal. Pupils equal, round, and reactive to light. No scleral icterus. Neck: Normal range of motion. Neck supple. No tracheal deviation present. No step-off on the cervical spine. No point tenderness but she notes that she has apparently had a previous kyphosis after her previous fractures that is now better and she has more of lordosis since last week. With a change in her cervical spine I do think C-spine imaging is necessary. Cardiovascular: Normal rate, regular rhythm. No gallop. No friction rub. No murmur heard. Symmetric radial artery pulses Pulmonary/Chest: Effort normal. No stridor. No respiratory distress. No wheezes. No rales. No rhonchi . No tenderness. Abdominal: Soft. Bowel sounds normal. No distension. No mass. No tenderness. No rebound. No guarding. Musculoskeletal: Pelvis is stable. No thoracic or lumbar spine midline tenderness. No lateral rib cage tenderness. She is tender over the anterior/mid/upper sternum but no palpable crepitus is felt on my palpation. RUE: Normal range of motion. No tenderness. No deformity LUE: Normal range of motion. No tenderness. No deformity RLE: Normal range of motion. No edema. No tenderness. No deformity LLE: Normal range of motion. No edema. No tenderness. No deformity Hips and nontender. Pelvis is stable. Femurs, thighs, lower legs, ankles, feet, knees are nontender. Neurological: Mental status normal. Attention normal. Alert and oriented x3. GCS 15. Memory normal. Speech fluent. Cognition normal. Cranial Nerves intact II-XII except I did not formally test gag or visual acuity. EOMI. Palate elevates symmetrically and tongue protrudes in the midline. 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 Finger to nose and coordination normal. Skin: Skin is warm and dry. No rash noted. No pallor. Normal capillary refill. Psychiatric: Normal mood. Anxious in speaking rapidly but polite. Interacts well with her . Const: Vital Signs, click to edit/add: Vital Signs - 24 hr 04/03/24 16:54 04/03/24 19:25 Temperature 98.4 F Pulse Rate [Right Pulse Oximeter] 95 82 Respiratory Rate 18 16 Blood Pressure [Ri ght Upper Arm] 210/98 H 147/79 H Pulse Oximetry 96 96 Oxygen Delivery Me thod Room Air Room Air Course Vital Signs Vital signs: Initial Vital Signs Temperature 98.4 F 04/03/24 16:54 Temperature Source Temporal Artery Scan 04/03/24 16:54 Pulse Rate 95 07/15/24 16:54 Respiratory Rate 18 04/03/24 16:54 Blood Pressure 210/98 H 04/03/24 16:54 Blood Pressure Mean 135 H 04/03/24 16:54 Blood Pressure Position Sitting 04/03/24 16:54 Pulse Oximetry 96 04/03/24 16:54 Oxygen Delivery Method Room Air 04/03/24 16:54 Vital Signs Temperature 98.4 F 04/03/24 16:54 Pulse Rate 95 04/03/24 16:54 Respiratory Rate 18 04/03/24 16:54 Blood Pressure 210/98 H 04/03/24 16:54 Pulse Oximetry 96 04/03/24 16:54 Oxygen Delivery Method Room Air 04/03/24 16:54 Temperature 98.4 F 04/03/24 16:54 Pulse Rate 82 04/03/24 19:25 Respiratory Rate 16 04/03/24 19:25 Blood Pressure 147/79 H 04/03/24 19:25 Pulse Oximetry 96 04/03/24 19:25 Oxygen Delivery Method Room Air 04/03/24 19:25 Medical Decision Making MDM Narrative Medical decision making narrative: 83-year-old female presenting to the ER today by private car with her for evaluation of injuries. She had a mechanical ground level accidental trip and fall on March 28. She struck the back of her head against the ground and also it sounds like she rolled and landed on her right shoulder, her back, on her left shoulder. 1. Head injury. Differential includes intracranial injuries (e.g. skull fracture, epidural hematoma, subdural hematoma, intracerebral hemorrhage, and traumatic subarachnoid hemorrhage), verses concussion or other traumatic brain injury. CT imaging was obtained and fortunately was normal. At this time it appears that the patient's symptoms are due to a concussion. The patient/family understand that they must return if any red flags appear/develop in the coming hours/days, as this may represent an indication to perform a repeat CT scan or further evaluation. I have noted that red flags include: headaches that get worse, increased drowsiness, strange behavior, repetitive speech, seizures, repeated vomiting, growing confusion, increased irritability, slurred speech, weakness or numbness, and loss of responsiveness. This information will also be provided in writing at discharge. 2. Chest injury. She is feeling some grinding and crepitus in her sternum. She has a previous sternal fracture which she thinks she re-injured. Chest CT is obtained shows no definite acute injury. She does seem to have some what appeared to be old fractures in the lower sternum that she may be feeling. At this point no sign of any acute sternal fracture, rib fracture, hemothorax, pneumothorax, or other thoracic injury. No evidence for T-spine or L-spine fracture. No evidence for other internal injury such as liver or splenic injury. 3. C-spine. Patient does have history of previous falls with previous chronic C-spine injuries. She is neurologically intact. C-spine imaging is obtained and shows age indeterminate fractures and old fractures. She is really not having much neck pain. No sign of any acute fracture that would require neck immobilization or neuro surgical intervention. She passed ambulation trial in the hallway here in the ER and is doing well. She and her are eager for discharge home. Recommended Tylenol if needed for pain if her chest is bothering her. Precautions for return to the ER. She will follow-up with her primary care and her physical therapist. Lab Data Labs: Lab Results 04/03/24 04/03/24 Range/Units 17:55 18:44 WBC 5.63 (4.50-11.00) K/uL RBC 3.99 L (4.00-5.20) m/uL Hgb 12.4 (12.0-16.0) gm/dL Hct 39.0 (33.0-51.0) % MCV 98 (80-100) fL MCH 31 (26-34) pg MCHC 32 (32-36) gm/dL RDW Coeff of Norbert 13.0 (11.5-15.5) % Plt Count 202 (140-440) K/uL Neut % (Auto) 70.6 (42.0-72.0) % Lymph % (Auto) 17.9 L (20-44) % [place] % (Auto) 9.1 (0.0-11.0) % Eos % (Auto) 1.4 (0.0-7.0) % Baso % (Auto) 0.5 (0.0-3.0) % Neut # (Auto) 3.97 (1.7-7.0) K/uL Lymph # (Auto) 1.00 (0.90-2.90) K/uL [place] # (Auto) 0.50 (0.00-0.90) K/UL Eos # (Auto) 0.08 (0.00-0.50) K/uL Baso # (Auto) 0.03 (0.00-0.30) K/uL Abs Immat Gran (auto) 0.03 (0.00-0.30) K/uL Imm/Tot Granulo (auto) 0.5 % Sodium 140 (135-149) mmol/L Potassium 4.0 (3.6-5.1) mmol/L Chloride 106 (96-114) mmol/L Carbon Dioxide 28 (20-32) mmol/L Anion Gap 6 L (7-15) mEq/L BUN 32 H (7-30) mg/dL Creatinine 0.9 (0.5-1.5) mg/dL Estimated Creat Clear 32.73 Estimated GFR 64 ml/min Glucose 101 (60-115) mg/dL Calcium 9.4 (8.4-10.6) mg/dL POC Creatinine 1.0 (0.6-1.3) mg/dl Imaging Data CT C spine: Attestation: I have reviewed the pertinent imaging results. Radiologist's impression: Impression: 1. Age-indeterminate mild superior endplate compression deformities of C7 and T1. 2. Favor chronic moderate anterior wedging deformity of C6. 3. [id number] spondylosis. CT scan - head: Attestation: I have reviewed the pertinent imaging results. Radiologist's impression: IMPRESSION: No acute intracranial abnormality. CT Chest/Ab/Pelvis: Attestation: I have reviewed the pertinent imaging results. Radiologist's impression: Impression: 1. No acute cardiopulmonary abnormality. 2. Moderate stool seen throughout the colon with minimal distal colonic diverticulosis. 3. No acute traumatic changes of the chest, abdomen or pelvis. Discharge Plan Discharge Clinical Impression: Chest wall injury, Head injury Patient Disposition: Home, Self-Care Condition: Stable Instructions: Rib Fracture (ED), Head Injury (DC) Additional Instructions: As we discussed, so far we do not see any fresh fractures in your rib cage or sternum. I suspect that the grinding your feeling in your chest is probably a re-injury of year old fracture and or any injury to the cartilage next your breast bone. The good news is these injury should heal with time and do not require surgery. If you needed, you can use Tylenol if needed for pain. Please come back to the ER right away if you have worsening pain, trouble breathing, worsening headache, nausea or vomiting, confusion, or any concerns. Prescriptions: No Action fluticasone propionate 50 mcg/actuation spray,suspension 1 spray intranasal BID aripiprazole 5 mg tablet 5 mg PO DAILY ondansetron HCl 4 mg tablet 4 mg PO Q6H Qty: 20 0RF meclizine 25 mg tablet 25 mg PO QID Qty: 20 0RF Follow Up/Referrals: Hetal Krishnamurthy DO [Primary Care Provider] - Stand Alone Forms: [facility] Info Instructions
--- NOTE | 2024-04-03 17:27 | CRLHL7_ITS ---
For Patients: As a result of the 21st Century Cures Act, medical imaging exams and procedure reports are released immediately into your electronic medical record. You may view this report before your referring provider. If you have questions, please contact your health care provider. Indication: Trauma, headaches Technique: Volumetric multidetector CT images of the chest, abdomen, and pelvis were obtained after the administration of intravenous contrast. 58 mL Isovue 370 low osmolar intravenous contrast Comparison: None available. FINDINGS: CHEST The thoracic inlet is unremarkable. The thyroid gland is within normal limits. The thoracic aorta is nonaneurysmal. There is no filling defect to suggest pulmonary embolus. There are extensive calcified mediastinal and hilar lymph nodes appreciated. There is dependent basilar atelectasis and parenchymal scar. There is no pneumothorax, dense consolidation or pleural effusion. Calcified granuloma within the superior aspect of the right lower lobe. The thoracic osseus structures are intact without fracture, lytic, or blastic lesion. The thoracic vertebral body heights are grossly maintained with minimal endplate Schmorl`s defects. ABDOMEN AND PELVIS The liver is normal in attenuation and size. The portal vein is patent. The spleen is normal in attenuation and size. The gallbladder is unremarkable without radiopaque calculus. There is no intrahepatic or common ductal dilatation. The stomach and duodenum are grossly unremarkable. The pancreas is normal in enhancement without significant atrophy. The adrenal glands are unremarkable without evidence of adenoma. Cystic changes of the kidneys with otherwise preserved corticomedullary differentiation. There is a moderate diffuse amount of intracolonic stool. There is minimal distal colonic diverticulosis. Minimal fluid is seen throughout the central small bowel. The appendix is unremarkable without significant inflammatory change. The abdominal aorta is nonaneurysmal with no significant atherosclerotic disease. The remaining solid pelvic viscera are otherwise grossly unremarkable. There is no pathologically enlarged epigastric, mesenteric, retroperitoneal, or pelvic sidewall lymph node. The anterior abdominal wall is grossly intact without significant hernias. There is no free air or free fluid. Degenerative changes of the bilateral hips and sacroiliac joints are appreciated. The lumbar vertebral body heights are grossly maintained with minimal endplate Schmorl`s defects. There is no significant spondylolisthesis or displaced fracture. Impression: 1. No acute cardiopulmonary abnormality. 2. Moderate stool seen throughout the colon with minimal distal colonic diverticulosis. 3. No acute traumatic changes of the chest, abdomen or pelvis. Please note that all CT scans at this facility use dose modulation, iterative reconstruction, and/or weight-based dosing when appropriate to reduce radiation dose to as low as reasonably achievable. Dictated by Emmett Chowdhury MD @ 04/03/2024 8:14:39 PM (Electronically Signed)
--- NOTE | 2024-04-03 17:28 | CRLHL7_ITS ---
For Patients: As a result of the Century Cures Act, medical imaging exams and procedure reports are released immediately into your electronic medical record. You may view this report before your referring provider. If you have questions, please contact your health care provider. Indication: Trauma. Technique: CT of the cervical spine performed without IV contrast. Comparison: None available. Findings: Age-indeterminate mild superior endplate C7 and T1 compression deformities. Chronic appearing moderate wedge-shaped C6 compression deformity. Straightening of the cervical lordosis. Mild multilevel disc height loss and degeneration. Grade 1 anterolisthesis C4 on C5. Mild multilevel cervical spondylosis with varying degrees of spinal canal or neural foraminal narrowing. The visualized lung apices appear clear. No prevertebral soft tissue swelling. Impression: 1. Age-indeterminate mild superior endplate compression deformities of C7 and T1. 2. Favor chronic moderate anterior wedging deformity of C6. 3. [id number] spondylosis. Please note that all CT scans at this facility use dose modulation, iterative reconstruction, and/or weight-based dosing when appropriate to reduce radiation dose to as low as reasonably achievable. Dictated by Francisco J Vieira MD @ 04/03/2024 8:01:56 PM (Electronically Signed)
--- NOTE | 2024-04-03 17:28 | CRLHL7_ITS ---
For Patients: As a result of the Cures Act, medical imaging exams and procedure reports are released immediately into your electronic medical record. You may view this report before your referring provider. If you have questions, please contact your health care provider. INDICATION: Trauma, fall. TECHNIQUE: CT head without contrast. COMPARISON: None. FINDINGS: CSF spaces: Mild diffuse parenchymal volume loss. Brain parenchyma and extra-axial spaces: Mild chronic white matter ischemic disease. The todd-white differentiation is normal. No sign of mass, hemorrhage, or midline shift. No extra-axial fluid collection. Skull base and calvarium: The visualized paranasal sinuses and mastoid air cells demonstrate no acute or significant findings. The visualized orbits are grossly unremarkable. No skull fractures. IMPRESSION: No acute intracranial abnormality. Please note that all CT scans at this facility use dose modulation, iterative reconstruction, and/or weight-based dosing when appropriate to reduce radiation dose to as low as reasonably achievable. Dictated by Clay Moses MD @ 04/03/2024 8:28:30 PM (Electronically Signed)
[2024-04-03 18:04] LABS: Basophils Absolute Auto 0.03 K/uL (0.00-0.30); Basophils Percent Auto 0.5 % (0.0-3.0); Eosinophils Absolute Auto 0.08 K/uL (0.00-0.50); Eosinophils Percent Auto 1.4 % (0.0-7.0); Hemoglobin* 12.4 gm/dL (12.0-16.0); Immature Granulocytes Abs Auto 0.03 K/uL (0.00-0.30); Immature Granulocytes Pct Auto 0.5 %; Lymphocytes Percent Auto 17.9 % (20-44); Mean Corpuscular HGB Conc 32 gm/dL (32-36); Mean Corpuscular Hemoglobin 31 pg (26-34); Mean Corpuscular Volume 98 fL (80-100); Monocytes Percent Auto 9.1 % (0.0-11.0); Neutrophils Absolute Auto 3.97 K/uL (1.7-7.0); Neutrophils Percent Auto 70.6 % (42.0-72.0); Platelet Count* 202 K/uL (140-440); Red Blood Count 3.99 m/uL (4.00-5.20); White Blood Count* 5.63 K/uL (4.50-11.00)
[2024-04-03 18:18] LABS: Chloride* 106 mmol/L (96-114); Sodium* 140 mmol/L (135-149)
[2024-04-03 18:20] LABS: Creatinine* 0.9 mg/dL (0.5-1.5); Est. Creatinine Clearance* 32.73; Estimated Glomerular Filt Rate 64 ml/min
[2024-04-03 18:21] LABS: Anion Gap 6 mEq/L (7-15); Blood Urea Nitrogen* 32 mg/dL (7-30); Calcium* 9.4 mg/dL (8.4-10.6); Carbon Dioxide* 28 mmol/L (20-32); Glucose* 101 mg/dL (60-115)
[2024-04-03 18:24] LABS: Slide Review Reflex No
--- OUTSIDE RECORDS SUMMARY | 2024-04-03 18:41 | XMS_ITS | Clinical Summary ---
Author Organization [facility] Address [place], [place] [address] Care Team Providers Care Mold Inspector Name Role Phone Hetal Krishnamurthy DO Primary Care Provider Allergies Active Allergy Reactions Criticality Noted Date Comments Amoxicillin-Pot Clavulanate Diarrhea Low 12/03/19 13 Erythromycin Base GI Upset Low 01/30/2009 Ibuprofen Palpitations Low 01/31/2009 Dizziness Levofloxacin *Unknown Medium 07/01/2011 Tendon issues Pseudoephedrine Hcl Hypertension High 03/15/2018 Risedronic Acid *Unknown Low 01/30/2009 Medications Medication Sig Dispensed Refills Start Date End Date Status ARIPiprazole (Abilify) 10 mg tabletIndications:Moo d disorder (HC) Take 1 Tablet (10 mg) by mouth once daily. 30 Tablet 1 01/13/2024 Active Active Problems Problem Noted Date Diagnosed Date Hypomanic bipolar II disorder 12/01/2023 Mood disorder 09/09/2023 Concentration deficit 06/02/2023 Major depressive disorder, recurrent episode, mo derate 04/09/2023 Neck pain, chronic 03/08/2023 Osteoporosis with current pa thological fracture with delayed healing 03/08/2023 Chronic constipation 03/08/2023 Vitamin B12 deficiency 03/08/2023 Compression fracture of fifth cervical vertebra 03/08/2023 Mild cognitive impairment 03/08/2023 Anxiety 03/08/2023 Resolved Problems Problem Noted Date Diagnosed Date Resolved Date Depressed mood 03/08/2023 06/02/2023 Encounters Date Type Department Care Team Description 03/15/2024 8:45 AM CDT Office Visit [facility] [address] [place] [address] Baylee Ceballos MD Follow Up; Medication Management 03/15/2024 Travel 02/17/2024 E-Consult [facility] [address] [phone] Stefani Jolly DO 02/16/2024 8:45 AM CDT Office Visit [facility] [address] [place] [address] Baylee Ceballos MD Follow Up; Medication Management 02/16/2024 Travel 01/18/2024 Telephone [facility] [address] [place] [address] Anai Cherry NP Follow Up 01/13/2024 11:00 AM CDT Office Visit [facility] [address] [place] [address] Anai Cherry NP Follow Up; Medication Management (feeling, I don't feel good physically myself, I can't wear a brace, there is no fix for this, so I have to hold my head up. I feel a little bit on the dumped side.) 01/13/2024 Travel 01/05/2024 1:42 PM CDT - 01/05/2024 11:59 PM CDT Hospital [facility] [address] [place] [address] Hetal Krishnamurthy DO Neck pain, chronic 01/05/2024 Travel from Last 3 Months Immunizations Name Administration Dates Next Due COVID-19 vaccine (Moderna 100mcg/0.5mL) RICHARD JONES 04/14/2022,07/22/2021,12/12/2020,2020 Influenza Virus, Unspecified 09/17/2016, 06/11/2015,07/13/2014,2010,08/17/2007 Influenza, High-dose Inactivated 07/20/2019,08/21,06/11/2015 Influenza, High-dose Quadriv alent Inactivated 10/11/2023,09/05/2022,08/29/2021,2019 Influenza, IIV3 (Age 6-35 mos) 08/17/2007 Influenza, IIV3 (Age >=3 years) 07/14/2011 Pneumococcal Poly,23-Valent (Pneumovax) 08/17/2007 Pneumococcal conj 13-Valent (Prevnar 13) 07/13/2014 Td (Age >=7 Years) 01/14/2005 Tdap 02/18/2015 Social History Tobacco Use Types Packs/Day Years Used Date Smoking Tobacco: Never Smokeless Tobacco: Never Tobacco Cessation:Counseling Given: Yes Alcohol Use Standard Drinks/Week Comments Yes 0 (1 standard drink = 0.6 oz pur e alcohol) occassional PHQ-2 Answer Date Recorded PHQ-2 TOTAL SCORE 0 03/15/2024 Social Connections Answer Date Recorded Frequency of Communication with Friends and Fami ly 0 06/22/2023 Financial Resource Strain Answer Date R ecorded Difficulty of Paying Living Expenses 3 06/22/2023 Difficulty of Paying Living Expenses Not on file 06/22/2023 Food Insecurity Answer Date Recorded Worried About Running Out of Food in the Last Ye ar 1 06/22/2023 Transportation Needs Answer Date Record ed Lack of Transportation (Medical) 1 06/22/2023 Housing Stability Answer Date Recorded Unable to Pay for Housing in the Last Year 1 06/22/2023 Sex and Gender Information Value Date Recorded Sex Assigned at Not on file Gender Identity Not on file Sexual Orientation Not on file Obstetrics History Last Filed Vital Signs Vital Sign Reading Time Taken Comments Blood Pressure 149/78 03/15/2024 9:00 AM CDT Pulse 85 03/15/2024 9:00 AM CDT Temperature - - Respiratory Rate - - Oxygen Saturation 98% 12/01/2023 1:46 PM CDT Inhaled Oxygen Concentration - - Weight 52.8 kg (116 lb 4.8 oz) 02/16/2024 9:08 A M CDT Height 152.4 cm (5') 03/08/2023 1:17 PM CDT Body Mass Index 22.71 03/08/2023 1:17 PM CDT Plan of Treatment Upcoming Encounters Date Type Department Care Team (Late st Contact Info) Description 04/10/2024 10:15 AM CDT Office Visit [facility] [address] [place] [address] Baylee Ceballos MD [address] [place] [address] Health Maintenance Due Date Last Done Comments Zoster (shingles) series for age 50+ (1 of 2) 1991 DEXA/DXA scan for age 65+ 2006 Medicare Wellness for age 65+ 2006 COVID-19 vaccine series (2022- season) 2024 10/07/2023, 04/14/2022, 07/22/2021, Additional history exists BMI (ht and wt on same day) for age 18+ 03/08/2024 03/08/2023 Influenza for age 65+ 05/21/2024 10/11/2023 , 09/05/2022, 08/29/2021, Additional history exists Tetanus booster 02/18/2025 02/18/2015, 01/14/2005 Depression screening for age 12+ 03/15/2025 03/15/2024, 01/13/2024, 11/18/2023, Additional history exists Pneumococcal series for age 65+ Completed 4, 08/17/2007 Tdap Completed 02/18/2015 Care Teams Mold Inspector Relationship Specialty Start Date End Date Hetal Krishnamurthy DO [address] [place] [address] PCP - General Family Practice 06/29/23
--- OUTSIDE RECORDS SUMMARY | 2024-04-03 18:42 | XMS_ITS | Encounter Summary ---
Author Organization [facility] Address [address] [place] [address] Care Team Providers Care Automotive Sales Professional Name Role Phone Apolonia PegueroADon-CDon Primary Care Provider [phone] Reason for Visit * Reason Onset Date Comments Release of records to [facility] 03/31/2024 Encounter Details Date Type Department Care Team (Latest Contact Info) Description 03/31/2024 Clinical Communication Department of Family Medicine, [facility], in [place], [place] [address] [place] [phone] Apolonia Peguero P.A.-CDon [address] [place] [phone] [facility] Social History Tobacco Use Types Packs/Day Years Used Date Smoking Tobacco: Never Passive Smoke Exposure: Never Smokeless Tobacco: Never Alcohol Use Standard Drinks/Week Comments Yes 5 (1 standard drink = 0.6 oz pur e alcohol) Occassionaly Humiliation, Afraid, Rape, and Kick questionnair e Answer Date Recorded Within the last year, have y ou been afraid of your partner or ex-partner? No 03/02/2023 Within the last year, have y ou been humiliated or emotionally abused in other ways by your partner or ex-partner? No Within the last year, have y ou been kicked, hit, slapped, or otherwise physically hurt by your partner or ex-partner? No 03/02/2023 Within the last year, have y ou been raped or forced to have any kind of sexual activity by your partner or ex-partner? No 03/02/2023 Social Connection and Isolat ion Panel [NHANES] Answer Date Recorded In a typical week, how many times do you talk on the phone with family, friends, or neighbors? More than three times a week 08/26/2021 How often do you get togethe r with friends or relatives? More than three times a week 08/26/2021 How often do you attend chur or spiritism services? More than 4 times per year 08/26/2021 Do you belong to any clubs o r organizations such as gnosticism groups, unions, fraternal or athletic groups, or school groups? No 08/26/2021 How often do you attend meet ings of the clubs or organizations you belong to? Never 08/26/2021 Are you , , di vorced, , never , or living with a partner? 08/26/2021 AUDIT-C Answer Date Recorded Q1: How often do you have a drink containing alc ohol? Never 04/11/2021 Average Number of Drinks Not on file 021 Q3: How often do you have si x or more drinks on one occasion? Never 04/11/2021 Overall Financial Resource Strain (CARDIA) Answe r Date Recorded How hard is it for you to pa y for the very basics like food, housing, medical care, and heating? Not hard at all 03/02/2023 PHQ-2 Answer Date Recorded PHQ-2 Score 2 10/26/2023 [facility] - Occupational Stress Questionnaire Answer Date Recorded Do you feel stress - tense, restless, nervous, or anxious, or unable to sleep at night because your mind is troubled all the time - these days? Only a little 08/26/2021 Exercise Vital Sign Answer Date Recorde d On average, how many days pe r week do you engage in moderate to strenuous exercise (like a brisk walk)? 4 days 03/02/2023 On average, how many minutes do you engage in exercise at this level? 30 min 03/02/2023 Hunger Vital Sign Answer Date Recorded Within the past 12 months, y ou worried that your food would run out before you got the money to buy more. Never true 03/02/20 23 Within the past 12 months, t he food you bought just didn't last and you didn't have money to get more. Never true 03/02/2023 PRAPARE - Transportation Answer Date Re corded In the past 12 months, has l ack of transportation kept you from medical appointments or from getting medications? No 02/18 In the past 12 months, has l ack of transportation kept you from meetings, work, or from getting things needed for daily living? No 03/02/2023 Depression Answer Date Recor ded PHQ-9 Total Score (max 27) 7 10/26 Nutrition Answer Date Recorded On average, how many serving s of fruits and vegetables do you eat per day (serving size is equal to 1 cup or approximately the size of a tennis ball)? 0-2 03/02/2023 Dental Answer Date Recorded Dental: Regular Dentist Yes 09/17/20 Employment Answer Date Recorded Employment status Retired 03/02/2023 Housing Stability Answer Date Recorded What is your living situation today? I have a [facility] to live 03/02/2023 Education Answer Date Recorded What is the highest level of school you have completed or the highest degree you have received? Associate degree: academic program 10/09/2020 Sex and Gender Information Value Date Recorded Sex Assigned at Not on file Gender Identity Female 11/13/2020 2:20 PM BATCH STILL OPERATOR Sexual Orientation Straight 11/13/2020 2: 20 PM BATCH STILL OPERATOR documented as of this encounter Plan of Treatment Upcoming Encounters Date Type Department Care Team (Late st Contact Info) Description 06/05/2024 9:30 AM CDT Office Visit Department of Orthopedic Surgery [place] [address] [place] [phone] Kathy Gutierres D.P.M. [address] [place] [phone] Discharge Disposition: Home or Self Care documented as of this encounter Goals Goal Patient Goal Type Associated Problems Recent Progress Patient-Stated? Author Maintain a healthy diet General On track( 019 10:06 AM CDT) Yes Tavia Cesar RKate Maintain daily exercise General Yes Tavia Cesar R.N. Improve Rt knee mobility General Yes Celia Olmos RKate Note: Is careful about falls. Has not gotten knee injections, knows is an option, if pain increases. Knee muscle wears out can only do 1/2 of stairs. documented as of this encounter Visit Diagnoses Not on filedocumented in this encounter Additional Health Concerns Assessment Noted Time PHQ-9 Depression Total Score: 7 10/26/19 24 1:46 PM BATCH STILL OPERATOR documented as of this encounter Care Teams Automotive Sales Professional Relationship Specialty Start Date End Date Apolonia Peguero P.A.-C. [address] [place] [phone] PCP - General Family Medicine 06/02/18 documented as of this encounter
--- OUTSIDE RECORDS SUMMARY | 2024-04-03 18:42 | XMS_ITS | Encounter Summary ---
Author Organization [facility] Address [address] [place] [address] Care Team Providers Care Bus Attendant Name Role Phone Apolonia Peguero P.A.-C. Primary Care Provider [phone] Reason for Visit * Reason Onset Date Comments Female Dysuria 02/09/2024 Encounter Details Date Type Department Care Team (Late st Contact Info) Description 02/09/2024 Nurse Triage Department of Family Medicine, [facility], in [place], [place] [address] [place] [place] [phone] Amie Romo M.SDonN., R.N. [address] [place] [address] Female Dysuria Social History Tobacco Use Types Packs/Day Years [...] How often do you attend chur or gnosticist services? More than 4 times per year 08/26/2021 Do you belong to any clubs o r organizations such as moravian groups, unions, fraternal or athletic groups, or [...] Answer Date Recorded PHQ-2 Score 2 10/26/2023 [facility] - Occupational Stress [...] money to buy more. Never true 03/02/20 Within the past 12 months, t he [...] your living situation today? I have a [facility] place to live 03/02/2023 Education Answer Date Recorded What is the highest level of school you have completed or the highest degree you have received? Associate degree: academic program 10/09/2020 Sex and Gender Information Value Date Recorded Sex Assigned at Not on file Gender Identity Female 11/13/2020 2:20 PM HEALTH INFORMATION MANAGERS Sexual Orientation Straight 11/13/2020 2: 20 PM HEALTH INFORMATION MANAGERS documented as of this encounter Miscellaneous Notes * Telephone Encounter - Ember Back L.PDonN. - 02/15/2024 11:51 AM CDT Unable to reach patient, it has been several days, will close this message at this time. * Telephone Encounter - Apolonia Peguero P.A.-C. - 02/09/2024 1:05 PM CDT I agree she needs to be seen to be evaluated and further testing ordered. Thanks. * Telephone Encounter - Frida Rg - 02/09/2024 12:50 PM CDT Patient is concern for dark urine and frequency for 2 months. Will advise to schedule appt to obtain urinalysis and proper treatment if needed. Routing to pcp if plan is agreeable or any other recommendations are needed. Thank you * Telephone Encounter - Amie Romo M.S.N., R.N. - 02/09/2024 12:13 PM CDT Chief Complaint / Reason for Call Patient is a 83 y.o. female calling regarding Female Dysuria. Assessment Concern: The patient is calling today with dark urine and urinary frequency for the past 2 months. Calling to request: PCP advice The recommended disposition is See a health care provider within 24 hours. Patient declines offeredappointment and would like to have a message sent to her PCP. Reason for Disposition Urinating more frequently than usual (i.e., frequency) Protocols used: Urinary [id number] Care Advice Patient/Caregiver understands and will follow care advice?: Yes, able to teach back Urinary [id number] Nurse Amie Mckee February 09, 2024 12:17 PM Care Advice CALL BACK IF: * Fever occurs * Unable to urinate and bladder feels full * You become worse CARE ADVICE given per Urinary Symptoms (Adult) guideline. documented in this encounter Plan of Treatment Upcoming Encounters Date Type Department Care Team (Late st Contact Info) Description 06/05/2024 9:30 AM CDT Office Visit Department of Orthopedic Surgery in [address] [phone] Kathy Gutierres D.PMacie [address] [phone] Discharge Disposition: Home or Self Care documented as of this encounter Goals Goal Patient Goal Type Associated Problems Recent Progress Patient-Stated? Author Maintain a healthy diet General On track( 019 10:06 AM CDT) Yes Tavia Cesar RDonNDon Maintain daily exercise General Yes Tavia Cesar R.N. Improve Rt knee mobility General Yes Celia Olmos RDonNDon Note: Is careful about falls. Has not gotten knee injections, knows is an option, if pain increases. Knee muscle wears out can only do 1/2 of stairs. documented as of this encounter Visit Diagnoses Not on filedocumented in this encounter Additional Health Concerns Assessment Noted Time PHQ-9 Depression Total Score: 7 10/26/19 24 1:46 PM HEALTH INFORMATION MANAGERS documented as of this encounter Care Teams Bus Attendant Relationship Specialty Start Date End Date Apolonia Peguero P.A.-C. [address] [place] [phone] PCP - General Family Medicine 06/02/18 documented as of this encounter
--- OUTSIDE RECORDS SUMMARY | 2024-04-03 18:42 | XMS_ITS ---
Author Organization [facility] Address [address] [place] [address] Care Team Providers Care Studio Sales Associate Name Role Phone Apolonia Peguero P.A.-C. Primary Care Provider [phone] Active Problems Problem Noted Date Diagnosed Date Other Kyphosis Cervical Region 01/08/2023 Constipation 03/21/2022 Deficiency Vitamin B12 08/22/2021 Overview: Taking sublingual B12. Osteoporosis Senile Without Pathological Fractur e 02/10/2021 Overview: Reclast infusions, follows with endocrinology. Fracture Vertebra Compression Thoracic Closed Angel bsequent 11/22/2020 Fracture Cervical Vertebra Compression Closed Angel bsequent 10/03/2020 Anxiety 01/22/2020 Overview: Follows with psychiatrist at [facility]. Has been taking Abilify. 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 Current Oncology Plans No current plan information found. Other Current Plans zoledronic acid (RECLAST)* Plan Start Date:11/12/2023 Plan Provider:Larry Everett M.D. Linked Problems Osteoporosis Senile Without Pathological Fracture Treatment Medications No medications scheduled. Past Plans Radiation Treatments * No radiation treatments are documented for this patient in [facility]. Treatments may have been administered in another system. 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
--- OUTSIDE RECORDS SUMMARY | 2024-04-03 18:42 | XMS_ITS ---
Author Organization [facility] Address [address] [place] [address] Care Team Providers Care Plastic Surgery Manager Name Role Phone Unavailable Unavailable Unavailable Surgery Details Not on file Complications Check Surgery Details section. Procedure Estimated Blood Loss Check Surgery Details section. Procedure Findings Check Surgery Details section. Procedure Specimens Taken Check Surgery Details section.
--- OUTSIDE RECORDS SUMMARY | 2024-04-03 18:42 | XMS_ITS | Referral Summary ---
Author Organization [facility] Address [address] [place] [address] Care Team Providers Care Biochemist Name Role Phone Apolonia Peguero-C. Primary Care Provider [phone] [phone] Source Comments Patient records contain information from all sites at [facility]. For routine questions regarding patient records, call [phone] during business hours, M-F 8:00 AM - 5:00 PM Central Time. Record requests for emergency care only can be directed to [phone] at any time.[facility] Encounters Date Type Department Care Team Description 03/31/2024 Clinical Communication Department of Family Medicine, [facility], in [place], [place] [address] [place] [phone] Apolonia Peguero P.A.-C. Release of records to [facility] 03/31/2024 Clinical Communication Department of Family Medicine, [facility], in [place], [place] [address] [place] [phone] Apolonia Peguero PDonA.-C. Fall (03/26 fell on concrete) 03/20/2024 Clinical Communication Department of Endocrinology in [place], [place] [address] [place] [phone] Larry Everett M.D. 02/21/2024 11:45 AM CDT Office Visit Department of Orthopedic Surgery in [address] [place] [phone] Kathy Gutierres D.P.M. Peripheral Vascular Disease (HCC) (Primary Dx); Onychomycosis; Pain Toe Left; Pain Toe Right Discharge Disposition: Home or Self Care 02/09/2024 Nurse Triage Department of Family Medicine, [facility], in [place], [place] [address] [place] [phone] Amie Romo M.S.N., R.N. Female Dysuria from Last 3 Months Allergies Active Allergy Reactions Criticality Noted Date Comments Amoxicillin-Pot Clavulanate Diarrhea Low 12/02/2012 Erythromycin Base GI intolerance Low 01/30/2009 Ibuprofen Palpitations Low 01/31/2009 Dizziness Levofloxacin Other (see comments) Medium 07/01/2011 Tendon issues Risedronic Acid Other (see comments) Low 01/30/2009 Pseudoephedrine Hcl Hypertension High 03/15/2018 Medications Medication Sig Dispensed Refills Start Date End Date Status acetaminophen (for_TYLENOL) 325 mg tablet Take 2 tablets by mouth every 4 (four) hours as needed. 01/30/2015 Active multivitamin-eye (PRESERVISION LUTEIN) 26 mg-200 Unit-5 mg-0.8 mg capsule Take 1 capsule by mouth daily. Active vitamin E 1,000 Unit capsule Take 1,000 Units by mouth daily. Active loratadine (CLARITIN) 10 mg tablet Take 10 mg by mouth as needed for allergies. Active cholecalciferol, vitamin D3, (cholecalciferol) 25 mcg (1,000 Unit) tablet Take 2 tablets (2,000 Units total) by mouth daily. 200 tablet 3 02/10/2021 Active cyanocobalamin (VITAMIN B12) [address] 1 tablet (500 mcg total) under the tongue daily. 100 each 3 02/10/2021 Active polyethylene glycol (MIRALAX) 17 gram powder packet Take 17 g by mouth as needed for constipation. Dissolve each 17 g dose in 240 mLs (8 ounces) of beverage. Active calcium carbonate (TUMS ULTRA) 1000 mg (400 mg calcium) chewable tablet Chew 2 tablets daily. Active ARIPiprazole (ABILIFY) 5 mg tablet Take 2.5 mg by mouth. 07/13/2023 Active ARIPiprazole (ABILIFY) 2 mg tablet TAKE 1 TABLET (2 MG) BY MOUTH ONCE DAILY. 07/01/2023 Active meclizine (ANTIVERT) 25 mg tablet Take 1 tablet by mouth 4 (four) times a day with meals and bedtime. 06/26/2023 Active ondansetron (ZOFRAN) 4 mg tablet Take 4 mg by mouth every 6 (six) hours. 06/26/2023 Active fluticasone propionate (FLONASE) 50 mcg/actuation nasal spray Administer 1 spray into each nostril 2 (two) times a day. 48 g 3 10/26/2023 Active sodium chloride-sodium bicarbonate (NEILMED SINUS RINSE) nasal rinse Administer 1 Application into each nostril as needed for congestion. Use water that is either sterile, distilled, or previously boiled for preparations; do not use tap water. Use nasal rinse in the morning before Flonase, and again in the evening before Flonase. 60 each 3 10/26/2023 Active Active Problems Problem Noted Date Diagnosed Date Other Kyphosis Cervical Region 01/08/2023 Constipation 03/21/2022 Deficiency Vitamin B12 08/22/2021 Overview: Taking sublingual B12. Osteoporosis Senile Without Pathological Fractur e 02/10/2021 Overview: Reclast infusions, follows with endocrinology. Fracture Vertebra Compression Thoracic Closed Angel bsequent 11/22/2020 Fracture Cervical Vertebra Compression Closed Angel bsequent 10/03/2020 Anxiety 01/22/2020 Overview: Follows with psychiatrist at [facility]. Has been taking Abilify. Varicose Vein Lower Extremity Bilateral 07/24/20 Imbalance Non Orthopedic 07/24/2019 History Of Falling [...] Pain Neck Overview: Chronic pain after fracture. Resolved Problems Problem Noted Date Diagnosed Date Resolved Date Osteoporosis 11/11/2020 06/15/2022 Overview: Last bone density 11/21/2020 Hyperglycemia 12/28/2018 06/15/2022 Malignant Neoplasm Of Unspec ified Site Of Laterality Unknown Female Breast Adenocarcinoma 11/24/2011 10/10/2020 Overview: Breast cancer, female Immunizations Name Administration Dates Next Due Influenza TIV (IM) 07/14/2011 Influenza high dose QV(65 ye ars or older) (PF) 10/11/2023,09/05/2022,08/29/2021,2019 Influenza, Unspecified 09/17/2016,2014,07/13/2014,2010,08/17/2007 PCV13 07/13/2014 PPSV23 08/17/2007 Td (Adult), adsorbed 01/14/2005 Tdap 02/18/2015 influenza high dose (65 year s or older) (PF) 07/20/2019 Social History Tobacco Use Types Packs/Day Years Used Date Smoking Tobacco: Never Passive Smoke Exposure: Never Smokeless Tobacco: Never Tobacco Cessation:Counseling Given: Not Answered Alcohol Use Standard Drinks/Week Comments Yes 5 [...] 08/26/2021 How often do you attend chur ch or mormonism services? More than 4 times per year 08/26/2021 Do you belong to any clubs o r organizations such as rastafari groups, unions, fraternal or athletic groups, or [...] Answer Date Recorded PHQ-2 Score 2 10/26/2023 [facility] Occupat ional Health - Occupational Stress [...] your living situation today? I have a [facility] place to live 03/02/2023 Education Answer Date Recorded What is the highest level of school you have completed or the highest degree you have received? Associate degree: academic program 10/09/2020 Sex and Gender Information Value Date Recorded Sex Assigned at Not on file Gender Identity Female 11/13/2020 2:20 PM ANTIQUE CLOCK REPAIRER Sexual Orientation Straight 11/13/2020 2: 20 PM ANTIQUE CLOCK REPAIRER Last Filed Vital Signs Vital Sign Reading Time Taken Comments Blood Pressure 168/70 11/12/2023 11:37 AM ANTIQUE CLOCK REPAIRER Pulse 81 11/12/2023 11:37 AM ANTIQUE CLOCK REPAIRER Temperature 36.6 ??C (97.9 ??F) 11/12/2023 11:[address] Respiratory Rate 24 11/12/2023 11:37 AM ANTIQUE CLOCK REPAIRER Oxygen Saturation 98% 11/12/2023 11:37 AM ANTIQUE CLOCK REPAIRER Inhaled Oxygen Concentration - - Weight 54.1 kg (119 lb 4.3 oz) 10/26/2023 1:46 P M ANTIQUE CLOCK REPAIRER Height 153 cm (5' 0.24) 08/30/2023 10:16 AM ANTIQUE CLOCK REPAIRER Body Mass Index 23.11 08/30/2023 10:16 AM ANTIQUE CLOCK REPAIRER Plan of Treatment Upcoming Encounters Date Type Department Care Team (Late st Contact Info) Description 06/05/2024 9:30 AM CDT Office Visit Department of Orthopedic Surgery in [address] [place] [phone] Kathy Gutierres D.P.M. [address] [place] [phone] Discharge Disposition: Home or Self Care Goals Goal Patient Goal Type Associated Problems [...] out can only do 1/2 of stairs. Medical Devices Implanted Type Area Gusset Folder Device Identifier Shelf Expiration Date Model / Serial / Lot Imaging Marker Imaging Marker Right: Breast Procedures Procedure Name Priority Date/Time Associated Diagnosis Comments BASIC METABOLIC PANEL, S/P Routine 08/20/2023 9:15 AM ANTIQUE CLOCK REPAIRER Osteoporosis Senile Without Pathological Fracture from Last 3 Months or Most Recently Relevant to Health Maintenance Results * (ABNORMAL) Basic Metabolic Panel (08/20/2023 9:15 AM ANTIQUE CLOCK REPAIRER) Potassium, P 4.5 3.6 - 5.2 mmol/L 08/20/2023 9:54 AM ANTIQUE CLOCK REPAIRER AUST Sodium, P 142 135 - 145 mmol/L 08/20/2023 9:54 AM ANTIQUE CLOCK REPAIRER AUST Chloride, P 105 98 - 107 mmol/L 08/20/2023 9:54 AM ANTIQUE CLOCK REPAIRER AUST Bicarbonate, P 29 22 - 29 mmol/L 08/20/2023 9:54 AM ANTIQUE CLOCK REPAIRER AUST Anion Gap, P 8 7 - 15 08/20/2023 9:54 AM ANTIQUE CLOCK REPAIRER AUST BUN (Blood Urea Nitrogen), P 28(H) 6 - 21 mg/dL 08/20/2023 9:54 AM ANTIQUE CLOCK REPAIRER AUST Creatinine 0.84 0.59 - 1.04 mg/dL 08/20/2023 9:54 AM ANTIQUE CLOCK REPAIRER AUST Estimated GFR (eGFR) 69 >=60 mL/min/BSA 08/20/2023 9:54 AM ANTIQUE CLOCK REPAIRER AUST Comment: Estimated GFR calculated using the 2020 CKD_EPI creatinine equation. Calcium, Total, P 10.0 8.8 - 10.2 mg/dL 08/20/2023 9:54 AM ANTIQUE CLOCK REPAIRER AUST Glucose, P 104 70 - 140 mg/dL 08/20/2023 9:54 AM ANTIQUE CLOCK REPAIRER AUST Blood (Blood, Venous) 08/20/2023 9:15 AM ANTIQUE CLOCK REPAIRER 08/20/2023 9:18 AM ANTIQUE CLOCK REPAIRER Larry Everett M.D. LAB BLOOD ADD-ON [facility] [address] [place] [address], [facility] [place] [facility] - [facility] [address] [place] [address] from Last 3 Months or Most Recently Relevant to Health Maintenance Care Teams Biochemist Relationship Specialty Start Date End Date Apolonia Peguero P.A.-C. [address] [place] [phone] PCP - General Family Medicine 06/02/18
--- OUTSIDE RECORDS SUMMARY | 2024-04-03 18:42 | XMS_ITS | Encounter Summary ---
Author Organization [facility] Address [address] [place] [address] Care Team Providers Care Color Card Maker Name Role Phone Apolonia Peguero P.A.-C. Primary Care Provider [phone] [phone] Reason for Referral * Outpatient (Routine) - Authorized Specialty Diagnoses / Procedures Referred By Lolly fiore Referred To Contact Orthopedic Surgery Diagnoses Peripheral Vascular Disease (HCC) Onychomycosis Pain Toe Left Pain Toe Right Kathy Gutierres D.P.MDon [address] [phone] [facility] Region Referral ID Status Reason Start Date Expiration Date V isits Requested Visits Authorized [id number] Authorized 02/21/2024 08/22/2025 1 1 Reason for Visit * Reason Comments Nail Problem Here for nail care Nail Problem * Outpatient (Routine) - Closed Specialty Diagnoses / Procedures Referred By Lolly fiore Referred To Contact Orthopedic Surgery Diagnoses Peripheral Vascular Disease (HCC) Onychomycosis Pain Toe Left Pain Toe Right Kathy Gutierres D.P.M. [address] [place] [phone] [facility] Referral ID Status Reason Start Date Expiration Date Visits Re quested Visits Authorized [id number] Closed 11/04/2023 05/05/2025 1 1 Encounter Details Date Type Department Care Team (Late st Contact Info) Description 02/21/2024 11:45 AM CDT Office Visit Department of Orthopedic Surgery in [address] [phone] Kathy Gutierres D.PMacie [address] [place] [phone] Peripheral Vascular Disease (HCC) (Primary Dx); Onychomycosis; Pain Toe Left; Pain Toe Right Discharge Disposition: Home or Self Care Social History Tobacco Use Types Packs/Day Years [...] week 08/26/2021 How often do you attend [facility] or rastafari services? More than 4 times per year 08/26/2021 Do you belong to any clubs o r organizations such as uatsdin groups, unions, fraternal or athletic groups, or [...] Answer Date Recorded PHQ-2 Score 2 10/26/2023 [facility] - Occupational Stress Questionnaire Answer Date Recorded [...] your living situation today? I have a [facility] place to live 03/02/2023 Education Answer Date Recorded What is the highest level of school you have completed or the highest degree you have received? Associate degree: academic program 10/09/2020 Sex and Gender Information Value Date Recorded Sex Assigned at Not on file Gender Identity Female 11/13/2020 2:20 PM SHADE HANGER Sexual Orientation Straight 11/13/2020 2: 20 PM SHADE HANGER documented as of this encounter Progress Notes * Kathy Gutierres D.PDonMDon - 02/21/2024 11:45 AM CDT SUBJECTIVE CHIEF COMPLAINT / REASON FOR VISIT Chief Complaint Patient presents with Right Foot - Nail Problem Here for nail care Left Foot - Nail Problem HISTORY OF PRESENT ILLNESS Ember Lynch is a 83 y.o. female seen for necessary foot care and complaint of painful thickened nails bilaterally. OBJECTIVE PHYSICAL EXAMINATION DP pulses faintly palpable bilaterally. PT pulses nonpalpable bilaterally. Skin is thin, shiny, frail, xerotic, ruborous, cold, and atrophic bilaterally with absent digital hair growth. Nails are elongated, thick,dystrophic, incurvated, and painful times 10 with lysis, crumbling, and subungual debris. ASSESSMENT #1 Peripheral Vascular Disease (HCC) #2 Onychomycosis #3 Pain Toe Left #4 Pain Toe Right PLAN Nails debrided x 10. Patient to follow up in 13 weeks for necessary foot care, sooner if questions or problems. documented in this encounter Plan of Treatment Upcoming Encounters Date Type Department Care Team (Late st Contact Info) Description 06/05/2024 9:30 AM CDT Office Visit Department of Orthopedic Surgery in [address] [phone] Kathy Gutierres D.PDonMDon [address] [place] [phone] Discharge Disposition: Home or Self Care Scheduled Referrals Name Type Priority Associated Diagnoses Order Schedule Orthopedic Surgery office visit (clinic) Outpatient Referral Routine Peripheral Vascular Disease (HCC) Onychomycosis Pain Toe Left Pain Toe Right Expected: 05/23/2024 (Approximate), Expires: 05/23/2025 documented as of this encounter Goals Goal Patient Goal Type Associated Problems Recent Progress Patient-Stated? Author Maintain a healthy diet General On track( 019 10:06 AM CDT) Yes Tavia Cesar, R.N. Maintain daily exercise General Yes Tavia Cesar R.N. Improve Rt knee mobility General Yes Celia Olmos RDonNDon Note: Is careful about falls. Has not gotten knee injections, knows is an option, if pain increases. Knee muscle wears out can only do 1/2 of stairs. documented as of this encounter Visit Diagnoses Diagnosis Peripheral Vascular Disease (HCC)- Primary Onychomycosis Pain Toe Left Pain Toe Right documented in this encounter Additional Health Concerns Assessment Noted Time PHQ-9 Depression Total Score: 7 10/26/19 24 1:46 PM SHADE HANGER documented as of this encounter Care Teams Color Card Maker Relationship Specialty Start Date End Date Apolonia Peguero P.A.-C. [address] [place] [phone] PCP - General Family Medicine 06/02/18 documented as of this encounter
--- OUTSIDE RECORDS SUMMARY | 2024-04-03 18:42 | XMS_ITS | Encounter Summary ---
Author Organization [facility] Address [address] [place] [address] Care Team Providers Care Bank Compliance Officer Name Role Phone Apolonia Peguero P.A.-C. Primary Care Provider [phone] [phone] Encounter Details Date Type Department Care Team (Late st Contact Info) Description 03/20/2024 Clinical Communication Department of Endocrinology in [place], [place] [address] [place] [phone] Larry Everett M.D. [address] [place] [phone] Social History Tobacco Use Types Packs/Day Years [...] How often do you attend chur or lutheran services? More than 4 times per year 08/26/2021 Do you belong to any clubs o r organizations such as gnosticist groups, unions, fraternal or athletic groups, or [...] Answer Date Recorded PHQ-2 Score 2 10/26/2023 [facility] of Occupat ional Health - Occupational [...] your living situation today? I have a [facility] place to live 03/02/2023 Education Answer Date Recorded What is the highest level of school you have completed or the highest degree you have received? Associate degree: academic program 10/09/2020 Sex and Gender Information Value Date Recorded Sex Assigned at Not on file Gender Identity Female 11/13/2020 2:20 PM HIGH SCHOOL BAND DIRECTOR Sexual Orientation Straight 11/13/2020 2: 20 PM HIGH SCHOOL BAND DIRECTOR documented as of this encounter Miscellaneous Notes * Telephone Encounter - Nessa Sifuentes L.P.N. - 03/22/2024 2:18 PM CDT Pt notified and verbalized understanding. * Telephone Encounter - Larry Everett M.D. - 03/22/2024 1:44 PM CDT Review of chart shows that she has received 3 infusions of Reclast 1 year apart. She does not need any additional Reclast infusions. Follow-up with endocrinology to be scheduled in 09/08/2025, as ordered above. * Telephone Encounter - Nessa Sifuentes L.P.N. 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 She is due for Infusion #11/20 in August 2023. Side effects reviewed. Order sent to the infusion therapy center. She has relocated to the [facility] butprefers to return to [place] for follow-up. Office follow-up scheduled in 2 years. Continue vitamin-D 2000 units once daily for replacement - Endocrinology office visit (clinic); Future; Expected date: 08/30/2025 - BMD Bone Density Spine Hips; Future; Expected date: 08/30/2025 - Calcium, Total; Future; Expected date: 08/30/2025 - Creatinine with Estimated GFR; Future; Expected date: 08/30/2025 - Bone Alkaline Phosphatase; Future; Expected date: 08/30/2025 - Vitamin D, Immunoassay, Total, Serum; Future; Expected date: 08/30/2025 Please advise on Reclast orders. documented in this encounter Plan of Treatment Upcoming Encounters Date Type Department Care Team (Late st Contact Info) Description 06/05/2024 9:30 AM CDT Office Visit Department of Orthopedic Surgery in [address] [place] [phone] Kathy Gutierres D.PDonMDon [address] [place] [phone] Discharge Disposition: Home or Self Care documented as of this encounter Goals Goal Patient Goal Type Associated Problems Recent Progress Patient-Stated? Author Maintain a healthy diet General On track( 019 10:06 AM CDT) Yes Tavia Cesar RDonNDon Maintain daily exercise General Yes Tavia Cesar RKate Improve Rt knee mobility General Yes Celia Olmos R.N. Note: Is careful about falls. Has not gotten knee injections, knows is an option, if pain increases. Knee muscle wears out can only do 1/2 of stairs. documented as of this encounter Visit Diagnoses Not on filedocumented in this encounter Additional Health Concerns Assessment Noted Time PHQ-9 Depression Total Score: 7 10/26/19 24 1:46 PM HIGH SCHOOL BAND DIRECTOR documented as of this encounter Care Teams Bank Compliance Officer Relationship Specialty Start Date End Date Apolonia Peguero P.A.-C. [address] [place] [phone] PCP - General Family Medicine 06/02/18 documented as of this encounter
--- OUTSIDE RECORDS SUMMARY | 2024-04-03 18:42 | XMS_ITS | Encounter Summary ---
Author Organization [facility] Address [address] [place] [address] Care Team Providers Care Computational Biologist Name Role Phone Apolonia Peguero-Siva Primary Care Provider [phone] Encounter Details Date Type Department Care Team (Late st Contact Info) Description 12/30/2023 Clinical Communication Department of Family Medicine, [facility], in [place], [place] [address] [place] [phone] Apolonia Peguero PDonA.-CDon [address] [place] [phone] Social History Tobacco Use Types Packs/Day Years [...] How often do you attend chur or baptism services? More than 4 times per year 08/26/2021 Do you belong to any clubs o r organizations such as mandaen groups, unions, fraternal or athletic groups, or [...] Answer Date Recorded PHQ-2 Score 2 10/26/2023 [facility] of Occupat ional Health - Occupational Stress [...] your living situation today? I have a [facility] place to live 03/02/2023 Education Answer Date Recorded What is the highest level of school you have completed or the highest degree you have received? Associate degree: academic program 10/09/2020 Sex and Gender Information Value Date Recorded Sex Assigned at Not on file Gender Identity Female 11/13/2020 2:20 PM MEAT PROCESS WORKER Sexual Orientation Straight 11/13/2020 2: 20 PM MEAT PROCESS WORKER documented as of this encounter Plan of Treatment Upcoming Encounters Date Type Department Care Team (Late st Contact Info) Description 06/05/2024 9:30 AM CDT Office Visit Department of Orthopedic Surgery in [address] [place] [phone] Kathy Gutierres D.PoDnMDon [address] [place] [phone] Discharge Disposition: Home or Self Care documented [...] Total Score: 7 10/26/19 24 1:46 PM MEAT PROCESS WORKER documented as of this encounter Care Teams Computational Biologist Relationship Specialty Start Date End Date Apolonia Peguero P.A.-C. [address] [place] [phone] PCP - General Family Medicine 06/02/18 documented as of this encounter
--- OUTSIDE RECORDS SUMMARY | 2024-04-03 18:42 | XMS_ITS | Clinical Summary ---
Author Organization [facility] Address [address] [place] [address] Care Team Providers Care Bureau Chief Name Role Phone Apolonia Peguero P.A.-C. Primary Care Provider [phone] Source Comments Patient records contain information from all sites at [facility]. For routine questions regarding patient records, call [phone] during business hours, M-F 8:00 AM - 5:00 PM Central Time. Record requests for emergency care only can be directed to [phone] at any time.[facility] Allergies Active Allergy Reactions Criticality Noted Date [...] Anxiety 01/22/2020 Overview: Follows with psychiatrist at [facility]. Has been taking Abilify. Varicose Vein Lower [...] Adenocarcinoma 11/24/2011 10/10/2020 Overview: Breast cancer, female Encounters Date Type Department Care Team Description 03/31/2024 Clinical Communication Department of Family Medicine, [facility], in [place], [place] [address] [place] [phone] Apolonia Peguero, P.A.-C. Release of records to [facility] 03/31/2024 Clinical Communication Department of Family [facility], [facility], in [place], [place] [address] [place] [phone] Apolonia Peguero, P.A.-C. Fall (03/26 fell on concrete) 03/20/2024 Clinical Communication Department of Endocrinology in [place], [place] [address] [facility] [address] Larry Everett M.D. 02/21/2024 11:45 AM CDT Office Visit Department of Orthopedic Surgery in [address] [place] [phone] Kathy Gutierres D.P.M. Peripheral Vascular Disease (HCC) (Primary Dx); Onychomycosis; Pain Toe Left; Pain Toe Right Discharge Disposition: Home or Self Care 02/09/2024 Nurse Triage Department of Family Medicine, [facility], in [place], [place] [address] [place] [phone] Amie Romo M.SJeff., R.N. Female Dysuria from Last 3 Months Immunizations Name Administration Dates Next Due Influenza TIV (IM) 07/14/2011 Influenza high dose QV(65 ye ars or older) (PF) 10/11/2023,09/05/2022,08/29/2021,2019 Influenza, Unspecified 09/17/2016,2014,07/13/2014,2010,08/17/2007 PCV13 07/13/2014 PPSV23 08/17/2007 Td (Adult), adsorbed 01/14/2005 Tdap 02/18/2015 influenza high dose (65 year s or older) (PF) 07/20/2019 Family History Medical History Relation Name Comments demise Brother Baby Boy Heart disease Father Jac Prostate cancer Father Jac Smoker Father Jac No Known Problems Maternal Grandfather No Known Problems Maternal Grandmother Anxiety depression Mother Armain Glaucoma Mother Armain Heart failure Mother Armain Panic attack Mother Armain No Known Problems Paternal Grandfather Heart attack Paternal Grandmother Cataracts Sister Crys Glaucoma Sister Crys Macular degeneration Sister Crys high stress Son 1 Abe Accident Son 2 Indio No Known Problems Son 3 M. Dorian No Known Problems Son 4 Shlomo Relation Name Status Comments Brother Baby Boy Father Jac Maternal Grandfather Maternal Grandmother Mother Armain Paternal Grandfather Paternal Grandmother Sister Crys Alive Son 1 Abe Alive Son 2 Indio Alive Son 3 M. Dorian Alive Son 4 Shlomo Alive Social History Tobacco Use Types Packs/Day Years [...] often do you attend chur ch or confucianist services? More than 4 times per year 08/26/2021 Do you belong to any clubs o r organizations such as restorationist groups, unions, fraternal or athletic groups, or [...] Answer Date Recorded PHQ-2 Score 2 10/26/2023 [facility] - Occupational Stress Questionnaire Answer Date Recorded [...] your living situation today? I have a [facility] place to live 03/02/2023 Education Answer Date Recorded What is the highest level of school you have completed or the highest degree you have received? Associate degree: academic program 10/09/2020 Sex and Gender Information Value Date Recorded Sex Assigned at Not on file Gender Identity Female 11/13/2020 2:20 PM SYSTEMS TESTING LABORATORY TECHNICIAN Sexual Orientation Straight 11/13/2020 2: 20 PM SYSTEMS TESTING LABORATORY TECHNICIAN Last Filed Vital Signs Vital Sign Reading Time Taken Comments Blood Pressure 168/70 11/12/2023 11:37 AM SYSTEMS TESTING LABORATORY TECHNICIAN Pulse 81 11/12/2023 11:37 AM SYSTEMS TESTING LABORATORY TECHNICIAN Temperature 36.6 ??C (97.9 ??F) 11/12/2023 11:[address] Respiratory Rate 24 11/12/2023 11:37 AM SYSTEMS TESTING LABORATORY TECHNICIAN Oxygen Saturation 98% 11/12/2023 11:37 AM SYSTEMS TESTING LABORATORY TECHNICIAN Inhaled Oxygen Concentration - - Weight 54.1 kg (119 lb 4.3 oz) 10/26/2023 1:46 P M SYSTEMS TESTING LABORATORY TECHNICIAN Height 153 cm (5' 0.24) 08/30/2023 10:16 AM SYSTEMS TESTING LABORATORY TECHNICIAN Body Mass Index 23.11 08/30/2023 10:16 AM SYSTEMS TESTING LABORATORY TECHNICIAN Plan of Treatment Upcoming Encounters Date Type Department Care Team (Late st Contact Info) Description 06/05/2024 9:30 AM CDT Office Visit Department of Orthopedic Surgery in [address] [phone] Kathy Gutierres, D.P.MDon [address] [place] [phone] Discharge Disposition: Home or Self Care Health Maintenance Due Date Last Done Comments Zoster Vaccines (1 of 2) 1991 COVID-19 Vaccine (2022-2 4 season) 2024 10/07/2023, 04/14/2022, 07/22/2021, Additional history exists Visit: Medicare Annual Wellness 03/03/2024 3 Influenza Vaccine (#1) 2024 4, 09/05/2022, 08/29/2021, Additional history exists Glucose Test for Med Monitoring 08/20/2024 08/20/2023, 01/22/2023, 06/24/2022, Additional history exists Visit: Annual, age 65+ (or Medicare and <65) 10/26/2024 10/26/2023 DTaP,Tdap,and Td Vaccines (2 - Td or Tdap) 02/18/2025 02/18/2015, 01/14/2005 Pneumococcal vaccine (65+ years) Completed 07/13/20 14, 08/17/2007 Fall Risk Screen (Annual) Completed 10/11/2023 Depression Screening (Annual PHQ-2) Completed 10/26/2023, 10/26/2023 Goals Goal Patient Goal Type Associated Problems [...] of stairs. Medical Devices Implanted Type Area Examination Grader Device Identifier Shelf Expiration Date Model / Serial / Lot Imaging Marker Imaging Marker Right: Breast Procedures Procedure Name Priority Date/Time Associated Diagnosis Comments BASIC METABOLIC PANEL, S/P Routine 08/20/2023 9:15 AM SYSTEMS TESTING LABORATORY TECHNICIAN Osteoporosis Senile Without Pathological Fracture from Last 3 Months or Most Recently Relevant to Health Maintenance Results * (ABNORMAL) Basic Metabolic Panel (08/20/2023 9:15 AM SYSTEMS TESTING LABORATORY TECHNICIAN) Potassium, P 4.5 3.6 - 5.2 mmol/L 08/20/2023 9:54 AM SYSTEMS TESTING LABORATORY TECHNICIAN AUST Sodium, P 142 135 - 145 mmol/L 08/20/2023 9:54 AM SYSTEMS TESTING LABORATORY TECHNICIAN AUST Chloride, P 105 98 - 107 mmol/L 08/20/2023 9:54 AM SYSTEMS TESTING LABORATORY TECHNICIAN AUST Bicarbonate, P 29 22 - 29 mmol/L 08/20/2023 9:54 AM SYSTEMS TESTING LABORATORY TECHNICIAN AUST Anion Gap, P 8 7 - 15 08/20/2023 9:54 AM SYSTEMS TESTING LABORATORY TECHNICIAN AUST BUN (Blood Urea Nitrogen), P 28(H) 6 - 21 mg/dL 08/20/2023 9:54 AM SYSTEMS TESTING LABORATORY TECHNICIAN AUST Creatinine 0.84 0.59 - 1.04 mg/dL 08/20/2023 9:54 AM SYSTEMS TESTING LABORATORY TECHNICIAN AUST Estimated GFR (eGFR) 69 >=60 mL/min/BSA 08/20/2023 9:54 AM SYSTEMS TESTING LABORATORY TECHNICIAN AUST Comment: Estimated GFR calculated using the 2020 CKD_EPI creatinine equation. Calcium, Total, P 10.0 8.8 - 10.2 mg/dL 08/20/2023 9:54 AM SYSTEMS TESTING LABORATORY TECHNICIAN AUST Glucose, P 104 70 - 140 mg/dL 08/20/2023 9:54 AM SYSTEMS TESTING LABORATORY TECHNICIAN AUST Blood (Blood, Venous) 08/20/2023 9:15 AM SYSTEMS TESTING LABORATORY TECHNICIAN 08/20/2023 9:18 AM SYSTEMS TESTING LABORATORY TECHNICIAN Larry Everett M.D. LAB BLOOD ADD-ON [facility] [address] [place] [address], [facility] [place] [address] [place] [address] from Last 3 Months or Most Recently Relevant to Health Maintenance Care Teams Bureau Chief Relationship Specialty Start Date End Date Apolonia Peguero P.A.-C. [address] [place] [phone] PCP - General Family Medicine 06/02/18
--- OUTSIDE RECORDS SUMMARY | 2024-04-03 18:42 | XMS_ITS | Encounter Summary ---
Author Organization [facility] Address [address] [place] [address] Care Team Providers Care Assembly Machine Tool Setter Name Role Phone Apolonia PegueroADon-CDon Primary Care Provider [phone] Reason for Visit * Reason Onset Date Comments Fall 03/31/202403/26 fell on conc rete Encounter Details Date Type Department Care Team (Latest Contact Info) Description 03/31/2024 Clinical Communication Department of Family Medicine, [facility], in [place], [place] [address] [place] [address] Apolonia Peguero P.A.-C. [address] [place] [phone] Fall (03/26 fell on concrete) Social History Tobacco Use Types Packs/Day Years [...] any clubs o r organizations such as episcopal groups, unions, fraternal or athletic groups, or [...] Answer Date Recorded PHQ-2 Score 2 10/26/2023 [facility] Occupational [facility] Questionnaire Answer Date [...] your living situation today? [facility] 03/02/2023 Education Answer Date Recorded What is the highest level of school you have completed or the highest degree you have received? Associate degree: academic program 10/09/2020 Sex and Gender Information Value Date Recorded Sex Assigned at Not on file Gender Identity Female 11/13/2020 2:20 PM DIGITAL MEDIA REPRESENTATIVE Sexual Orientation Straight 11/13/2020 2: 20 PM DIGITAL MEDIA REPRESENTATIVE documented as of this encounter Miscellaneous Notes * Telephone Encounter - Reema Norton C.M.A. - 03/31/2024 1:54 PM CDT Patient just wanted fall documented in chart. States it happened 4 days ago. She is not in any pain. Injury happened to the right ribcage on the backside. Conchis states if she notices symptoms or worsening pain she will go to nearest clinic in [place]. DAHLIA for facility to facility mailed to patient per request for [place] to get her notes. documented in this encounter Plan of Treatment Upcoming Encounters Date Type Department Care Team (Late st Contact Info) Description 06/05/2024 9:30 AM CDT Office Visit Department of Orthopedic Surgery in [address] [place] [address] Kathy Gutierres D.PDonMDon [address] [place] [phone] Discharge Disposition: Home or Self Care documented as of this encounter Goals Goal Patient Goal Type Associated Problems Recent Progress Patient-Stated? Author Maintain a healthy diet General On track( 019 10:06 AM CDT) Yes Tavia Cesar, R.N. Maintain daily exercise General Yes Tavia Cesar R.N. Improve Rt knee mobility General Yes Celia Olmos, R.N. Note: Is careful about falls. Has not gotten knee injections, knows is an option, if pain increases. Knee muscle wears out can only do 1/2 [address] stairs. documented as of this encounter Visit Diagnoses Not on filedocumented in this encounter Additional Health Concerns Assessment Noted Time PHQ-9 Depression Total Score: 7 10/26/19 24 1:46 PM DIGITAL MEDIA REPRESENTATIVE documented as of this encounter Care Teams Assembly Machine Tool Setter Relationship Specialty Start Date End Date Apolonia Peguero P.A.-C. [address] [place] [address] PCP - General Family Medicine 06/02/18 documented as of this encounter
[2024-04-03 19:25] VITALS: BP 147/79; PULSE 82; RESP 16; O2SAT 96
== END 2024-04-03 21:26 | disposition home or self-care (01) ==
PROVIDERS: Emergency Provider Emergency Medicine; PCP Family Medicine
DX: S09.90XA Unspecified injury of head, initial encounter (principal); R07.89 Other chest pain; W18.30XA Fall on same level, unspecified, initial encounter; Z13.228 Encounter for screening for other metabolic disorders
CPT/HCPCS: 36415; 70450; 71260; 72125; 74177; 80048; 82565; 85025; 97112; 97530; 99283; 99284; Q9967

== ENCOUNTER 2024-07-07 09:45 | Outpatient (RCR) | payer MEDICARE, BC, SELFPAY | END 2024-11-04 23:59 | disposition home or self-care (01) | PROVIDERS: PCP Family Medicine; Visit Provider Student in an Organized Health Care Education/Training Program | DX: G31.84 Mild cognitive impairment of uncertain or unknown etiology (principal); M53.3 Sacrococcygeal disorders, not elsewhere classified; K59.00 Constipation, unspecified; Z74.09 Other reduced mobility; R26.81 Unsteadiness on feet; F39 Unspecified mood [affective] disorder; F41.9 Anxiety disorder, unspecified; R29.6 Repeated falls; R26.89 Other abnormalities of gait and mobility; R29.3 Abnormal posture; R53.1 Weakness; M54.2 Cervicalgia; Z51.89 Encounter for other specified aftercare | CPT/HCPCS: 97110; 97112; 97116; 97140; 97163; 97165; 97530; 97535 ==

== ENCOUNTER 2024-11-14 09:24 | Outpatient (CLI) | payer MEDICARE, BC, SELFPAY | END 2024-11-14 09:25 | disposition home or self-care (01) | PROVIDERS: PCP Internal Medicine; Visit Provider Internal Medicine | DX: E78.5 Hyperlipidemia, unspecified (principal); M81.0 Age-related osteoporosis without current pathological fracture; F41.9 Anxiety disorder, unspecified | CPT/HCPCS: 80053; 80061; 84443 ==

== ENCOUNTER 2025-01-19 12:08 | Emergency (ER) | payer MEDICARE, BC, SELFPAY ==
--- OUTSIDE RECORDS SUMMARY | 2025-01-19 12:11 | XMS_ITS | Clinical Summary ---
Author Organization [facility] Address [address] [place] [address] Care Team Providers Care Investigative Shopper Name Role Phone Hetal Krishnamurthy DO Primary Care Provider [phone] Allergies Active Allergy Reactions Criticality Noted Date Comments Amoxicillin Other - Describe In Comment Field Low 11/07/2023 Amoxicillin-Pot Clavulanate Diarrhea Low 12/02/2012 Erythromycin Base GI Upset Low 01/30/2009 Ibuprofen Palpitations Low 01/31/2009 Dizziness Levofloxacin *Unknown,*Unknown - Follow up needed Medium 07/01/2011 Tendon issues Other reaction(s): Other (see comments), Tendon issues Pseudoephedrine Hypertension,*Unknow n - Follow up needed High 03/15/2018 Other reaction(s): Hypertension Pseudoephedrine Hcl Hypertension High 03/15/2018 Risedronic Acid *Unknown Low 01/30/2009 Medications Walker - 4 wheelsIndicatio ns:Impairment of balance For home use. Length of need: 99 1 Each 4 Active QUEtiapine 25 mg tabletIndicatio ns:Mood disorder Take 3 Tablets (75 mg) by mouth at bedtime. 90 Tablet 2 5 Active QUEtiapine (SEROQUEL) 100 mg tabletIndicatio ns:Mood disorder Take 1 Tablet (100 mg) by mouth at bedtime. Start once completed with 25 mg tablets. 30 Tablet 1 5 12/30/19 25 Discontinu ed(*Medica tion adjustment ) QUEtiapine 25 mg tabletIndicatio ns:Mood disorder Take 3 Tablets (75 mg) by mouth at bedtime. 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 [address] [place] [address] Baylee Ceballos MD Medication Management 01/15/2025 Travel 12/29/[address] [facility] [address] [place] [address] Baylee Ceballos MD 11/20/2024 10:45 AM PRE ASSEMBLY WIRER Office Visit [facility] [address] [place] [address] Baylee Ceballos MD Medication Management 11/20/2024 Travel from Last 3 Months Immunizations Immunization Administration Dates Next Due COVID-19 vaccine (Moderna [...] PHQ-2 Answer Date Recorded PHQ-2 TOTAL SCORE 2 09/06/2024 Social Connections Answer Date Recorded Frequency of [...] Housing in the Last Year 1 06/22/2023 Comments No Sex and Gender Information Value Date Recorded Sex Assigned at Not on file Legal Sex Female 1:35 PM CDT Gender Identity Not on file Sexual Orientation Not on file Obstetrics History Last Filed Vital Signs Vital Sign Reading Time Taken Comments Blood Pressure 139/88 01/15/2025 11:07 AM CDT Pulse 81 01/15/2025 11:07 AM CDT Temperature - - Respiratory Rate - - Oxygen Saturation 98% 12/01/2023 1:46 PM CDT Inhaled Oxygen Concentration - - Weight 50.9 kg (112 lb 4.8 oz) 01/15/2025 11:07 AM CDT Height 152.4 cm (5') 03/08/2023 1:17 PM CDT Body Mass Index 21.93 03/08/2023 1:17 PM CDT Plan of Treatment Upcoming Encounters Date Type Department Care Team (Late st Contact Info) Description 04/16/2025 10:15 AM CDT Office Visit [facility] [address] [place] [address] Baylee Ceballos MD [address] [place] [address] Health Maintenance Due Date Last Done Comments Zoster (shingles) series for age 50+ (1 of 2) 1991 DEXA/DXA scan for age 65+ 2006 Medicare Wellness for age 65+ 2006 RSV vaccine for adults or (1 - 1-dose 75+ series) 2016 BMI (ht and wt on same day) for age 18+ 03/08/2024 03/08/2023 COVID-19 vaccine series ( season) 2025 07/14/2024, 10/07/2023, 04/14/2022, Additional history exists Tetanus booster 02/18/2025 02/18/2015, 01/14/2005 Influenza Vaccine (Season Ended) 2025 07/20/2019, 09/17/2016, 09/17/2016, Additional history exists Depression screening for age 12+ 09/06/2025 09/06/2024, 05/31/2024, 04/10/2024, Additional history exists Pneumococcal series for age 50+ Completed 4, 08/17/2007 Tdap Completed 02/18/2015 Insurance [employer] [place] [place] [id number] [employer] [address] MEDICARE PART B HB ONLY Care Teams Investigative Shopper Relationship Specialty Start Date End Date Hetal Krishnamurthy DO [address] [place] [address] PCP - General Family Practice 06/29/23
--- OUTSIDE RECORDS SUMMARY | 2025-01-19 12:11 | XMS_ITS | Encounter Summary ---
Author Organization [facility] Address [address] [place] [address] Care Team Providers Care Media/Instructional Designer Name Role Phone Apolonia Peguero P.Kathleen.Wes., P.A. Primary Care Provider Reason for Referral * Outpatient (Routine) - Authorized Specialty Diagnoses / Procedures Referred By Lolly fiore Referred To Contact Orthopedic Surgery Diagnoses Onychomycosis Pain Toe Left Pain Toe Right Kathy Gutierres D.P.M. [address] [place] [address] Phone: tel: fax: [facility] Region Referral ID Status Reason Start Date Expiration Date V isits Requested Visits Authorized [id number] Authorized 12/11/2024 06/12/2026 1 1 Reason for Visit * Reason Comments Nail Problem Here for nail care Nail Problem * Outpatient (Routine) - Closed Specialty Diagnoses / Procedures Referred By Lolly fiore Referred To Contact Orthopedic Surgery Diagnoses Peripheral Vascular Disease Onychomycosis Pain Toe Left Pain Toe Right Kathy Gutierres D.P.M. [address] [place] [address] Phone: tel: fax: [facility] Region Referral ID Status Reason Start Date Expiration Date Visits Re quested Visits Authorized [id number] Closed 09/04/2024 03/06/2026 1 1 Encounter Details Date Type Department Care Team (Late st Contact Info) Description 12/11/2024 9:30 AM CDT Office Visit Department of Orthopedic Surgery in [address] [place] [address] Kathy Gutierres, D.P.MDon [address] [place] [phone] Peripheral Vascular Disease (Primary Dx); Onychomycosis; Pain Toe Left; Pain Toe Right Discharge Disposition: Home or Self Care Social History Tobacco Use Types Packs/Day Years Used Date Smoking Tobacco: Never Passive Smoke Exposure: Never Smokeless Tobacco: Never Alcohol Use Standard Drinks/Week Comments Not Currently 0 (1 standard drink = 0.6 oz pur e alcohol) Occassionaly [facility] Utilities Answer Date Recorded In the past 12 months has e electric, gas, oil, or water company threatened to shut off services in your home? No 06/05/2024 Humiliation, Afraid, Rape, and Kick questionnair e Answer Date Recorded Within the last year, have y ou been afraid of your partner or ex-partner? No 06/05/2024 Within the last year, have y ou been humiliated or emotionally abused in other ways by your partner or ex-partner? No Within the last year, have y ou been kicked, hit, slapped, or otherwise physically hurt by your partner or ex-partner? No 06/05/2024 Within the last year, have y ou been raped or forced to have any kind of sexual activity by your partner or ex-partner? No 06/05/2024 Social Connection and Isolat ion Panel [NHANES] Answer Date Recorded In a typical week, how many times do you talk on the phone with family, friends, or neighbors? More than three times a week 08/26/2021 How often do you get togethe r with friends or relatives? More than three times a week 08/26/2021 How often do you attend chur ch or congregation services? More than 4 times per year 08/26/2021 Do you belong to any clubs o r organizations such as shinto groups, unions, fraternal or athletic groups, or [...] 03/02/2023 PHQ-2 Answer Date Recorded PHQ-2 Score 1 06/05/2024 [facility] of Occupat ional Health - Occupational Stress [...] to strenuous exercise (like a brisk walk)? 1 day 06/05/2024 On average, how many minutes do you engage in exercise at this level? 30 min 06/05/2024 Hunger Vital Sign Answer Date Recorded Within the past 12 months, y ou worried that your food would run out before you got the money to buy more. Never true 06/05/20 24 Within the past 12 months, t he food you bought just didn't last and you didn't have money to get more. Never true 06/05/2024 PRAPARE - Transportation Answer Date Re corded In the past 12 months, has l ack of transportation kept you from medical appointments or from getting medications? No 05/21 In the past 12 months, has l ack of transportation kept you from meetings, work, or from getting things needed for daily living? No 06/05/2024 Depression Answer Date Recor ded PHQ-9 Total Score (max 27) 5 06/05 Nutrition Answer Date Recorded On average, how many serving s of fruits and vegetables do you eat per day (serving size is equal to 1 cup or approximately the size of a tennis ball)? 5 or more 06/05/2024 Dental Answer Date Recorded Dental: Regular Dentist Yes 09/17/20 Employment Answer Date Recorded Employment status Retired 06/05/2024 Housing Stability Answer Date Recorded What is your living situation today? I have a [facility] place to live 06/05/2024 Education Answer Date Recorded What is the highest level of school you have completed or the highest degree you have received? 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 female seen for necessary foot care and complaint of painful thickened nails bilaterally. OBJECTIVE PHYSICAL EXAMINATION DP pulses faintly palpable bilaterally. PT pulses nonpalpable bilaterally. Skin is thin, shiny, frail, xerotic, ruborous, cold, and atrophic bilaterally with absent digital hair growth. Nails are elongated, thick,dystrophic, incurvated, and painful times 10 with lysis, crumbling, and subungual debris. ASSESSMENT / PLAN #1 Peripheral Vascular Disease #2 Onychomycosis #3 Pain Toe Left #4 Pain Toe Right PLAN Nails debrided x 10. Patient to follow up in 13 weeks for necessary foot care, sooner if questions or problems. documented in this encounter Plan of Treatment Upcoming Encounters Date Type Department Care Team (Late st Contact Info) Description 03/12/2025 11:15 AM CDT Office Visit Department of Orthopedic Surgery in [address] [place] [address] Kathy Gutierres D.P.MDon [address] [place] [phone] Discharge Disposition: Home or Self Care Scheduled Referrals Name Type Priority Associated Diagnoses Order Schedule Orthopedic Surgery office visit (clinic) Outpatient Referral Routine Onychomycosis Pain Toe Left Pain Toe Right Expected: 03/13/2025, Expires: 03/13/2026 documented as of this encounter Goals Goal Patient Goal Type Associated Problems Recent Progress Patient-Stated? Author Maintain a healthy diet General On track( 019 10:06 AM CDT) Yes Tavia Cesar, R.N. Maintain daily exercise General Yes Tavia Cesar, R.N. Improve Rt knee mobility General Yes Celia Olmos, R.N. Note: Is careful about falls. Has not gotten knee injections, knows is an option, if pain increases. Knee muscle wears out can only do 1/2 of stairs. documented as of this encounter Visit Diagnoses Diagnosis Peripheral Vascular Disease- Primary Onychomycosis Pain Toe Left Pain Toe Right documented in this encounter Additional Health Concerns Assessment Noted Time PHQ-9 Depression Total Score: 5 06/05/20 24 8:35 AM CDT documented as of this encounter Care Teams Media/Instructional Designer Relationship Specialty Start Date End Date Apolonia Peguero MPAS, P.A.-C., P.A. [address] [place] [phone] PCP - General Family Medicine 06/02/18 [facility] [place] Dent[place] 06/05/24 [facility] [place] Sap Hana Developer 06/05/24 documented as of this encounter
--- OUTSIDE RECORDS SUMMARY | 2025-01-19 12:11 | XMS_ITS ---
Author Organization [facility] Address [address] [place] [address] Care Team Providers Care Resource Management Planner Name Role Phone Apolonia Peguero, P.A.-C., P.A. Primary Care Provider Active Problems * This document contains information received from the source organization and may not represent a complete record from that organization. Problem Noted Date Diagnosed Date Other Kyphosis Cervical Region 01/08/2023 Constipation 03/21/2022 Deficiency Vitamin B12 08/22/2021 Overview (08/30/2023): Taking sublingual B12. 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 Fracture Vertebra Compression Thoracic Closed Angel bsequent 11/22/2020 Fracture Cervical Vertebra Compression Closed Angel bsequent 10/03/2020 Anxiety 01/22/2020 Overview (08/30/2023): Follows with psychiatrist at [facility]. Has been taking Abilify. Varicose Vein [...] Breast Bilateral 01/09/2009 Pain Scapula Pain Neck Overview (08/30/2023): Chronic pain after fracture. Current Treatment and Therapy Plans No current plan information found. Other Current Plans zoledronic acid (RECLAST)* Plan Start Date:11/12/2023 Plan Provider:Larry Everett M.D. Linked Problems Osteoporosis Senile Without Pathological Fracture Treatment Medications No medications scheduled. Past Treatment and Therapy Plans Resolved Problems Problem Noted Date Diagnosed Date Resolved Date Osteoporosis 11/11/2020 06/15/2022 Overview (11/26/2020): Last bone density 11/21/2020 Hyperglycemia 12/28/2018 06/15/2022 Malignant Neoplasm Of Unspec ified Site Of Laterality Unknown Female Breast Adenocarcinoma 11/24/2011 10/10/2020 Overview (10/03/2018): Breast cancer, female
--- OUTSIDE RECORDS SUMMARY | 2025-01-19 12:11 | XMS_ITS | Encounter Summary ---
Author Organization [facility] Address [address] [place] [address] Care Team Providers Care Pecan Gatherer Name Role Phone Apolonia Peguero PRodriguez., P.A. Primary Care Provider Encounter Details Date Type Department Care Team (Late st Contact Info) Description 12/07/2024 Orders Only Department of Endocrinology in [place], [place] [address] [place] [phone] Larry Everett M.D. [address] [place] [phone] Social History Tobacco Use Types Packs/Day Years Used Date Smoking Tobacco: Never Passive Smoke Exposure: Never Smokeless Tobacco: Never Alcohol Use Standard Drinks/Week Comments Not Currently 0 (1 standard drink = 0.6 oz pur e alcohol) Occassionaly [facility] Utilities Answer Date Recorded In the past 12 months has e [employer], gas, oil, or water [employer] threatened to shut off services in your [...] often do you attend chur ch or yazidi services? More than 4 times per year [...] Answer Date Recorded PHQ-2 Score 1 06/05/2024 [facility] [place] of Occupat ional Health - Occupational Stress [...] your living situation today? I have a [facility] place to live 06/05/2024 Education Answer Date Recorded What is the highest level of school you have completed or the highest degree you have received? 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 [address] [place] [phone] Discharge Disposition: Home or Self Care documented [...] documented as of this encounter Care Teams Pecan Gatherer Relationship Specialty Start Date End Date Apolonia Peguero MPAS, P.A.-C., P.A. [address] [place] [phone] PCP - General Family Medicine 06/02/18 [facility] [place], [place] Dentist 06/05/24 [facility] [place], [place] 06/05/24 documented as of this encounter
--- OUTSIDE RECORDS SUMMARY | 2025-01-19 12:11 | XMS_ITS | Clinical Summary ---
Author Organization [facility] Address [address] [place] [address] Care Team Providers Care Vision Rehabilitation Therapist Name Role Phone Apolonia Peguero P.Kathleen.-C., P.A. Primary Care Provider Source Comments Patient records contain information from all sites at [facility]. For routine questions regarding patient records, call [phone] during business hours, M-F 8:00 AM - 5:00 PM Central Time. Record requests for emergency care only can be directed to [phone] at any time.[facility] Allergies Active Allergy Reactions Criticality Noted Date Comments Amoxicillin-Pot Clavulanate Diarrhea Low 12/02/2012 Erythromycin Base GI intolerance Low 01/30/2009 Ibuprofen Palpitations Low 01/31/2009 Dizziness Levofloxacin Other (see comments) Medium 07/01/2011 Tendon issues Risedronic Acid Other (see comments) Low 01/30/2009 Pseudoephedrine Hcl Hypertension High 03/15/2018 Medications * This document contains information received from the source organization and may not represent a complete record from that organization. acetaminophen (for_TYLENOL) 325 mg tablet Take 2 tablets by mouth every 4 (four) hours as needed. 5 Active multivitamin-eye (PRESERVISION LUTEIN) 26 mg-200 Unit-5 mg-0.8 mg capsule Take 1 capsule by mouth daily. Active vitamin E 1,000 Unit capsule Take 1,000 Units by mouth daily. Active loratadine (CLARITIN) 10 mg tablet Take 10 mg by mouth as needed for allergies. Active cholecalciferol, vitamin D3, (cholecalciferol ) 25 mcg (1,000 Unit) tablet Take 2 tablets (2,000 Units total) by mouth daily. 200 tablet 3 1 Active cyanocobalamin (VITAMIN B12) [address] 1 tablet (500 mcg total) under the tongue daily. 100 each 3 1 Active polyethylene glycol (MIRALAX) 17 gram powder packet Take 17 g by mouth as needed for constipation. Dissolve each 17 g dose in 240 mLs (8 ounces) of beverage. Active calcium carbonate (TUMS ULTRA) 1000 mg (400 mg calcium) chewable tablet Chew 2 tablets daily. Active ARIPiprazole (ABILIFY) 5 mg tablet Take 2.5 mg by mouth. 3 Active ARIPiprazole (ABILIFY) 2 mg tablet TAKE 1 TABLET (2 MG) BY MOUTH ONCE DAILY. 3 Active meclizine (ANTIVERT) 25 mg tablet Take 1 tablet by mouth every 6 (six) hours as needed. 3 Active ondansetron (ZOFRAN) 4 mg tablet Take 4 mg by mouth every 6 (six) hours as needed. 3 Active fluticasone propionate (FLONASE) 50 mcg/actuation nasal spray Administer 1 spray into each nostril 2 (two) times a day. 48 g 3 4 Active Additional Information Patient not taking.Reported on 06/05/2024 sodium chloride-sodium bicarbonate (NEILMED SINUS RINSE) nasal rinse Administer 1 Application into each nostril as needed for congestion. Use water that is either sterile, distilled, or previously boiled for preparations; do not use tap water. Use nasal rinse in the morning before Flonase, and again in the evening before Flonase. 60 each 3 4 Active ARIPiprazole (Abilify) 15 mg tablet Take 1 tablet by mouth at bedtime. 4 Active Active Problems Problem Noted Date Diagnosed Date Other Kyphosis Cervical Region 01/08/2023 Constipation 03/21/2022 Deficiency Vitamin B12 08/22/2021 Overview (08/30/2023): Taking sublingual B12. 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 Fracture Vertebra Compression Thoracic Closed Angel bsequent 11/22/2020 Fracture Cervical Vertebra Compression Closed Angel bsequent 10/03/2020 Anxiety 01/22/2020 Overview (08/30/2023): Follows with psychiatrist at [facility]. Has been taking Abilify. Varicose Vein [...] Neck Overview (08/30/2023): Chronic pain after fracture. Resolved Problems Problem Noted Date Diagnosed Date Resolved Date Osteoporosis 11/11/2020 06/15/2022 Overview (11/26/2020): Last bone density 11/21/2020 Hyperglycemia 12/28/2018 06/15/2022 Malignant Neoplasm Of Unspec ified Site Of Laterality Unknown Female Breast Adenocarcinoma 11/24/2011 10/10/2020 Overview (10/03/2018): Breast cancer, female Encounters Date Type Department Care Team Description 12/11/2024 9:30 AM CDT Office Visit [place] [place] [phone] Kathy Gutierres D.P.M. Peripheral Vascular Disease (Primary Dx); Onychomycosis; Pain Toe Left; Pain Toe Right Discharge Disposition: Home or Self Care 12/07/2024 Orders Only Department of Endocrinology in [place], [place] [address] [place] [address] Larry Everett M.D. from Last 3 Months Immunizations Immunization Administration Dates Next Due Influenza TIV (IM) 07/14/2011 Influenza high dose QV(65 ye ars or older) (PF) 10/11/2023,09/05/2022,08/29/2021,2019 Influenza, Unspecified 09/17/2016,2014,07/13/2014,2010,08/17/2007 PCV13 07/13/2014 PPSV23 08/17/2007 SARS-COV-2 (COVID-19) - MODE RNA (12 YEARS AND OLDER) Fall Seasonal 10/07/2023 Td (Adult), adsorbed 01/14/2005 Tdap 02/18/2015 influenza trivalent high dos e (HD)(PF) 07/20/2019 Family History Medical History Relation Name [...] Not Answered Alcohol Use Standard Drinks/Week Comments Not Currently 0 (1 standard drink = 0.6 oz pur e alcohol) Occassionaly [facility] Utilities Answer Date Recorded In the past 12 months has th e electric, gas, oil, or water company [...] often do you attend chur ch or sabianist services? More than 4 times per year 08/26/2021 Do you belong to any clubs o r organizations such as religious groups, unions, fraternal or athletic groups, or [...] Answer Date Recorded PHQ-2 Score 1 06/05/2024 [facility] [place] of Occupat ional [facility] - Occupational Stress Questionnaire Answer Date Recorded [...] your living situation today? I have a [facility] place to live 06/05/2024 Education Answer Date Recorded What is the highest level of school you have completed or the highest degree you have received? 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 on file Not on file Retired [employer] Not on file Not on file Not on fi le Retired from [employer] Not on file Not on file Not on file Last Filed Vital Signs Vital Sign Reading Time Taken Comments Blood Pressure 148/69 06/05/2024 9:12 AM CDT Pulse 76 06/05/2024 9:12 AM CDT Temperature 36.4 C (97.5 F) 06/05/2024 8:58 AM CDT Respiratory Rate 18 06/05/2024 8:58 AM CDT Oxygen Saturation 97% 06/05/2024 8:58 AM CDT Inhaled Oxygen Concentration - - Weight 52.4 kg (115 lb 8.3 oz) 06/05/2024 8:58 A M CDT Height 154 cm (5' 0.63) 06/05/2024 8:58 AM CDT Body Mass Index 22.09 06/05/2024 8:58 AM CDT Plan of Treatment Upcoming Encounters Date Type Department Care Team (Late st Contact Info) Description 03/12/2025 11:15 AM CDT Office Visit Department of Orthopedic Surgery in [address] [phone] Kathy Gutierres D.P.MDon [address] [place] [phone] Discharge Disposition: Home or Self Care Health Maintenance Due Date Last Done Comments Zoster Vaccines (1 of 2) 1991 RSV vaccine - (32-36 weeks) or 60+ years (1 - 1-dose 75+ series) 2016 Glucose Test for Med Monitoring 08/20/2024 08/20/2023, 01/22/2023, 06/24/2022, Additional history exists Depression Screening (Annual PHQ-2) 09/20/2024 Fall Risk Screen (Annual) 09/20/2024 Visit: Annual, age 65+ (or Medicare and <65) 10/26/2024 10/26/2023 COVID-19 Vaccine ( season) 2025 07/14/2024, 10/07/2023, 04/14/2022, Additional history exists Visit: Medicare Annual Wellness 06/06/2025 06/05/2024, 03/02/2023 DTaP,Tdap,and Td Vaccines (3 - Td or Tdap) 11/14/2034 11/14/2024, 02/18/2015, 01/14/2005 Influenza Vaccine Completed 07/14/2024, , 09/05/2022, Additional history exists Pneumococcal vaccine (50+ years) Completed 11/14/2024, 07/13/2014, 08/17/2007 IPV Vaccines Aged Out No longer eligi ble based on patient's age to complete this topic Goals Goal Patient Goal Type Associated Problems [...] of stairs. Medical Devices Implanted Type Area Lastex Operator Device Identifier Shelf Expiration Date Model / Serial / Lot Hardware E.G. Pins/Screws/R ods Hardware e.g. pins/screws/ rods Mouth Imaging Marker Imaging Marker Right: Breast Procedures Procedure Name Priority Date/Time Associated Diagnosis Comments BASIC METABOLIC PANEL, S/P Routine 08/20/2023 9:15 AM CLIENT RELATIONS ASSOCIATE Osteoporosis Senile Without Pathological Fracture from Last 3 Months or Most Recently Relevant to Health Maintenance Results * (ABNORMAL) Basic Metabolic Panel (08/20/2023 9:15 AM CLIENT RELATIONS ASSOCIATE) Potassium, P 4.5 3.6 - 5.2 mmol/L 08/20/2023 9:54 AM CLIENT RELATIONS ASSOCIATE AUST Sodium, P 142 135 - 145 mmol/L 08/20/2023 9:54 AM CLIENT RELATIONS ASSOCIATE AUST Chloride, P 105 98 - 107 mmol/L 08/20/2023 9:54 AM CLIENT RELATIONS ASSOCIATE AUST Bicarbonate, P 29 22 - 29 mmol/L 08/20/2023 9:54 AM CLIENT RELATIONS ASSOCIATE AUST Anion Gap, P 8 7 - 15 08/20/2023 9:54 AM CLIENT RELATIONS ASSOCIATE AUST BUN (Blood Urea Nitrogen), P 28(H) 6 - 21 mg/dL 08/20/2023 9:54 AM CLIENT RELATIONS ASSOCIATE AUST Creatinine 0.84 0.59 - 1.04 mg/dL 08/20/2023 9:54 AM CLIENT RELATIONS ASSOCIATE AUST Estimated GFR (eGFR) 69 >=60 mL/min/BSA 08/20/2023 9:54 AM CLIENT RELATIONS ASSOCIATE AUST Comment: Estimated GFR calculated using the 2020 CKD_EPI creatinine equation. Calcium, Total, P 10.0 8.8 - 10.2 mg/dL 08/20/2023 9:54 AM CLIENT RELATIONS ASSOCIATE AUST Glucose, P 104 70 - 140 mg/dL 08/20/2023 9:54 AM CLIENT RELATIONS ASSOCIATE AUST Blood (Blood, Venous) 08/20/2023 9:15 AM CLIENT RELATIONS ASSOCIATE 08/20/2023 9:18 AM CLIENT RELATIONS ASSOCIATE Larry Everett M.D. LAB BLOOD ADD-ON Final Result [facility] [address] [place] [address], [facility] [address] [place] [address] from Last 3 Months or Most Recently Relevant to Health Maintenance Insurance MEDICARE BLUE CROSS BLUE SHIELD Care Teams Vision Rehabilitation Therapist Relationship Specialty Start Date End Date Apolonia Peguero MPAS, P.A.-C., P.A. [address] [place] [phone] PCP - General Family Medicine 06/02/18 [facility] [place], [place] Dentist 06/05/24 [facility] [place], [place] 06/05/24
--- NOTE | 2025-01-19 12:33 | ED.GENADULT ---
HPI - General Adult General Stated complaint: left leg infection Time Seen by Provider: 01/19/25 12:11 History of Present Illness HPI narrative: Patient is a 84-year-old woman who unfortunately approximately 2 weeks ago burn her left medial ankle with hot water when she was trying to make tea. She has been receiving wound care to the clinic and feels like the area needs to be debrided. She has approximately a 3 cm ulceration on the medial aspect of the left ankle. There is some surrounding hyperemia. Patient is on Keflex but I believe she has acute signs of infection. She has had no systemic symptoms of fevers chills chest pain shortness a breath nausea vomiting. Pain is only moderate. Patient initially thought maybe she was at wound clinic today. Related Data Home Medications ?Medication ?Instructions ?Recorded ?Confirmed fluticasone propionate 50 1 spray intranasal BID 11/07/23 01/15/25 mcg/actuation nasal spray,suspension aripiprazole 5 mg tablet 15 mg PO DAILY 11/14/24 01/15/25 meclizine 25 mg tablet 25 mg PO QID PRN 11/14/24 01/15/25 ondansetron HCl 4 mg tablet 4 mg PO Q6H PRN 11/14/24 01/15/25 quetiapine 100 mg tablet 100 mg PO QPM 01/15/25 01/15/25 quetiapine 25 mg tablet mg PO 01/15/25 01/15/25 Previous Rx's ?Medication ?Instructions ?Recorded cephalexin 500 mg capsule 500 mg PO QID 5 days #20 caps 01/15/25 Allergies Allergy/AdvReac Type Severity Reaction Status Date / Time pseudoephedrine AdvReac Intermediate Hypertensio Verified 01/15/25 11:34 n amoxicillin AdvReac Mild Diarrhea Verified 01/15/25 11:34 erythromycin base AdvReac Mild Gastrointestinal Verified 01/15/25 11:34 Upset ibuprofen AdvReac Mild Palpitation Verified 01/15/25 11:34 s risedronate sodium (From AdvReac Mild Unknown Verified 01/15/25 11:34 Actonel) levofloxacin AdvReac Unknown Tendon Verified 01/15/25 11:34 Issues Review of Systems Status of ROS: Reports: 10 or more systems reviewed and unremarkable except as noted in History and below [facility] Medical History Hyperlipidemia ?E78.5 - Hyperlipidemia, unspecified (ICD-10) Allergic rhinitis ?J30.9 - Allergic rhinitis, unspecified (ICD-10) Sensorineural hearing loss ?H90.5 - Unspecified sensorineural hearing loss (ICD-10) Varicose veins of both lower extremities ?I83.93 - Asymptomatic varicose veins of bilateral lower extremities (ICD-10) Anxiety ?F41.9 - Anxiety disorder, unspecified (ICD-10) Hx of non anemic vitamin B12 deficiency ?Z86.39 - Personal history of other endocrine, nutritional and metabolic disease (ICD-10) Cervical kyphosis ?M40.202 - Unspecified kyphosis, cervical region (ICD-10) Cervical compression fracture ?S12.9XXA - Fracture of neck, unspecified, initial encounter (ICD-10) Breast cancer, right (2008) ?C50.911 - Malignant neoplasm of unspecified site of right female breast (ICD-10) Osteoporosis, 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 - Age-related osteoporosis without current pathological fracture (ICD-10) Imbalance ?R26.89 - Other abnormalities of gait and mobility (ICD-10) Chronic neck and back pain ?M54.2 - Cervicalgia (ICD-10) ?M54.9 - Dorsalgia, unspecified (ICD-10) ?G89.29 - Other chronic pain (ICD-10) Heart murmur ?R01.1 - Cardiac murmur, unspecified (ICD-10) Chronic constipation ?K59.09 - Other constipation (ICD-10) Onychomycosis ?B35.1 - Tinea unguium (ICD-10) PVD (peripheral vascular disease) ?I73.9 - Peripheral vascular disease, unspecified (ICD-10) Surgical History History of section ?Z98.891 - History of uterine scar from previous surgery (ICD-10) History of arthroscopy of shoulder (2016) ?Z98.890 - Other specified postprocedural states (ICD-10) History of lumpectomy of right breast (2008) ?Z98.890 - Other specified postprocedural states (ICD-10) Family History (Updated 11/13/24 @ 16:28 by Augustina Wells) Mother Depression Anxiety Glaucoma CHF (congestive heart failure) Father Heart disease Sister Glaucoma Macular degeneration Paternal Grandmother Myocardial infarction Social History Smoking Status: Never smoker Do you use any of these nicotine containing products: None Second hand tobacco smoke exposure: No How often do you have a drink containing alcohol: monthly or less How many standard drinks containing alcohol do you have on a typical day: 1 or 2 How often do you have six or more drinks on one occasion: Never AUDIT-C Alcohol total score: 1 Non-prescribed substance use: denies use service: No Exam Narrative: Exam Narrative: EXAM GENERAL: Patient appears comfortable and well. EYES: No scleral icterus. LYMPH: No supraclavicular or cervical lymphadenopathy. SKIN: Visible skin seen during exam normal or with benign process only. EXT: Ulceration with surrounding hyperemia noted there is some granulation tissue in the center of the wound. HEART: Regular rate and rhythm with no murmurs, rubs, or gallops. LUNGS: Clear to auscultation bilaterally with no crackles or wheezes. ABD: Soft, non tender, non distended. PSYCH: Good eye contact, speech is not pressured. Course Course ED Course: Patient seen and examined. At this point were try to get her into wound clinic will be dressing the wound. I do not believe she needs any change to her treatments. I did ask that she continue wound care and continue outpatient regimen. As luck would have it she is actually my primary care patient will make sure she gets good primary care follow-up. Discharge Plan Discharge Clinical Impression: Burn Patient Disposition: Home, Self-Care Condition: Stable Additional Instructions: Continue dressing changes as previous. We are and rolling and wound clinic. Continue primary care follow-up. Activity Level: No Restrictions Discharge Diet: Regular Prescriptions: No Action fluticasone propionate 50 mcg/actuation spray,suspension 1 spray intranasal BID aripiprazole 5 mg tablet 15 mg PO DAILY meclizine 25 mg tablet 25 mg PO QID PRN ondansetron HCl 4 mg tablet 4 mg PO Q6H PRN quetiapine 25 mg tablet PO quetiapine 100 mg tablet 100 mg PO QPM cephalexin 500 mg capsule 500 mg PO QID 5 Days Qty: 20 0RF Follow Up/Referrals: Leo Fragoso MD [Primary Care Provider] - Stand Alone Forms: [employer] Info Instructions
[2025-01-19 12:58] VITALS: BP 175/68; PULSE 84; RESP 18; TEMP 37.2; O2SAT 97; BMI 22.7
--- NOTE | 2025-01-19 13:04 | ED.NURSE ---
Spoke with PA from Wound Clinic. Dressing recommendation were given and patient burn was cleansed with Sea-Clens. Xeroform was placed on wound and tube gauze wrapped around ankle. Follow up appointment was scheduled for this Wednesday at 9 AM.
--- OUTSIDE RECORDS SUMMARY | 2025-01-19 13:15 | XMS_ITS | Clinical Summary ---
Author Organization [facility] Address [address] [place] [address] Care Team Providers Care Glass Silverer Name Role Phone Apolonia Peguero P.Kathleen.-C., P.A. Primary Care Provider Source Comments Patient records contain information from all sites at [facility]. For routine questions regarding patient records, call [phone] during business hours, M-F 8:00 AM - 5:00 PM Central Time. Record requests for emergency care only can be directed to [phone] at any time.[facility] Allergies Active Allergy Reactions Criticality Noted Date [...] 01/22/2020 Overview (08/30/2023): Follows with psychiatrist at [facility]. Has been taking Abilify. Varicose Vein Lower [...] Office Visit [place] [place] [address] Kathy Gutierres D.P.M. Peripheral Vascular Disease (Primary Dx); Onychomycosis; Pain Toe Left; Pain Toe Right Discharge Disposition: Home or Self Care 12/07/2024 Orders Only Department of Endocrinology in [place], [place] [address] [place] [address] Larry Everett M.D. from Last [...] = 0.6 oz pur e alcohol) Occassionaly [facility] Utilities Answer Date Recorded In [...] often do you attend chur ch or holiness services? More than 4 times per year 08/26/2021 Do you belong to any clubs o r organizations such as jewish groups, unions, fraternal or athletic groups, or [...] Answer Date Recorded PHQ-2 Score 1 06/05/2024 [facility] of Occupat ional [facility] - Occupational Stress Questionnaire Answer Date Recorded [...] your living situation today? I have a [facility] place to live 06/05/2024 Education Answer Date Recorded What is the highest level of school you have completed or the highest degree you have received? Associate degree: academic program 10/09/2020 Comments No Sex and Gender Information Value Date Recorded Sex Assigned at Not on file Legal Sex Female 8:16 PM [employer] Gender Identity Female 11/13/2020 2:20 PM [employer] Sexual Orientation Straight 11/13/2020 2: 20 PM [employer] Occupation Industry Job Start Date Job End [...] Office Visit Department of Orthopedic Surgery in [address] [phone] Kathy Gutierres D.P.MDon [address] [place] [address] Discharge Disposition: Home or Self Care [...] of stairs. Medical Devices Implanted Type Area Floor Assembler Device Identifier Shelf Expiration Date Model / Serial / Lot Hardware E.G. Pins/Screws/R ods Hardware e.g. pins/screws/ rods Mouth Imaging Marker Imaging Marker Right: Breast Procedures Procedure Name Priority Date/Time Associated Diagnosis Comments BASIC METABOLIC PANEL, S/P Routine 08/20/2023 9:15 AM [employer] Osteoporosis Senile Without Pathological Fracture from Last 3 Months or Most Recently Relevant to Health Maintenance Results * (ABNORMAL) Basic Metabolic Panel (08/20/2023 9:15 AM [employer]) Potassium, P 4.5 3.6 - 5.2 mmol/L 08/20/2023 9:54 AM [employer] [facility] Sodium, P 142 135 - 145 mmol/L 08/20/2023 9:54 AM [employer] [facility] Chloride, P 105 98 - 107 mmol/L 08/20/2023 9:54 AM [employer] [facility] Bicarbonate, P 29 22 - 29 mmol/L 08/20/2023 9:54 AM [employer] [facility] Anion Gap, P 8 7 - 15 08/20/2023 9:54 AM [employer] [facility] BUN (Blood Urea Nitrogen), P 28(H) 6 - 21 mg/dL 08/20/2023 9:54 AM [employer] [facility] [facility] Creatinine 0.84 0.59 - 1.04 mg/dL 08/20/2023 9:54 AM [employer] [facility] Estimated GFR (eGFR) 69 >=60 mL/min/BSA 08/20/2023 9:54 AM [employer] [facility] [employer] [facility] Comment: Estimated GFR calculated using the 2020 CKD_EPI creatinine equation. Calcium, Total, P 10.0 8.8 - 10.2 mg/dL 08/20/2023 9:54 AM [employer] [facility] Glucose, P 104 70 - 140 mg/dL 08/20/2023 9:54 AM [employer] [facility] Blood (Blood, Venous) 08/20/2023 9:15 AM [employer] 08/20/2023 9:18 AM [employer] [facility] Larry Everett M.D. LAB BLOOD ADD-ON Final Result [facility] [address] [place] [address], [facility] [address] [place] [address] from Last 3 Months or Most Recently Relevant to Health Maintenance Insurance MEDICARE BLUE CROSS BLUE [employer]IELD Care Teams Glass Silverer Relationship Specialty Start Date End Date Apolonia Peguero MPAS, P.A.-C., P.A. [address] [place] [address] PCP - General Family Medicine 06/02/18 [facility] [place], [place] Dentist 06/05/24 [facility] [place], [place] Event Av Operator 06/05/24
--- OUTSIDE RECORDS SUMMARY | 2025-01-19 13:15 | XMS_ITS | Encounter Summary ---
Author Organization [facility] Address [address] [place] [address] Care Team Providers Care Printed Circuit Boards Solder Leveler Name Role Phone Apolonia Peguero PRodriguez., P.A. Primary Care Provider Encounter Details Date Type Department Care Team (Late st Contact Info) Description 12/07/2024 Orders Only Department of Endocrinology in [place], [place] [address] [place] [phone] Larry Everett M.D. [address] [place] [phone] Social History Tobacco Use Types Packs/Day Years Used Date Smoking Tobacco: Never Passive Smoke Exposure: Never Smokeless Tobacco: Never Alcohol Use Standard Drinks/Week Comments Not Currently 0 (1 standard drink = 0.6 oz pur e alcohol) Occassionaly [facility] Utilities Answer Date Recorded In the past 12 months has e [employer], gas, oil, or water [employer] threatened to shut off services in your [...] often do you attend chur ch or hindu services? More than 4 times per year 08/26/2021 Do you belong to any clubs o r organizations such as lutheran groups, unions, fraternal or athletic groups, or [...] Answer Date Recorded PHQ-2 Score 1 06/05/2024 [facility] of Occupat ional Health - Occupational Stress [...] your living situation today? I have a [facility] place to live 06/05/2024 Education Answer Date Recorded What is the highest level of school you have completed or the highest degree you have received? Associate degree: academic program 10/09/2020 Comments No Sex and Gender Information Value Date Recorded Sex Assigned at Not on file Legal Sex Female 8:16 PM OUTSIDE SALES CONSULTANT Gender Identity Female 11/13/2020 2:20 PM OUTSIDE SALES CONSULTANT Sexual Orientation Straight 11/13/2020 2: 20 PM OUTSIDE SALES CONSULTANT Occupation Industry Job Start Date Job End [...] Visit Department of Orthopedic Surgery in [address] [place] [phone] Kathy Gutierres D.P.M. [address] [place] [phone] Discharge Disposition: Home or Self Care documented [...] documented as of this encounter Care Teams Printed Circuit Boards Solder Leveler Relationship Specialty Start Date End Date Apolonia Peguero MPAS, P.A.-C., P.A. [address] [place] [phone] PCP - General Family Medicine 06/02/18 [facility] [place], [place] Dentist 06/05/24 [facility] [place], [place] Design And Sales Consultant 06/05/24 documented as of this encounter
--- OUTSIDE RECORDS SUMMARY | 2025-01-19 13:15 | XMS_ITS ---
Author Organization [facility] Address [address] [place] [address] Care Team Providers Care Right Of Way Maintenance Supervisor Name Role Phone Apolonia Peguero, P.A.-C., P.A. [...] 01/22/2020 Overview (08/30/2023): Follows with psychiatrist at [facility]. Has been taking Abilify. Varicose Vein [...]
--- OUTSIDE RECORDS SUMMARY | 2025-01-19 13:15 | XMS_ITS | Encounter Summary ---
Author Organization [facility] Address [address] [place] [address] Care Team Providers Care Dog Sitter Name Role Phone Apolonia Peguero P.Kathleen.Wes., P.A. Primary Care Provider Reason for Referral * Outpatient (Routine) - Authorized Specialty Diagnoses / Procedures Referred By Lolly fiore Referred To Contact Orthopedic Surgery Diagnoses Onychomycosis Pain Toe Left Pain Toe Right Kathy Gutierres D.P.M. [address] [place] [address] Phone: tel: fax: [facility] Region Referral ID Status Reason Start Date Expiration Date V isits Requested Visits Authorized [id number] Authorized 12/11/2024 06/12/2026 1 1 Reason for Visit * Reason Comments Nail Problem Here for nail care Nail Problem * Outpatient (Routine) - Closed Specialty Diagnoses / Procedures Referred By Lolly fiore Referred To Contact Orthopedic Surgery Diagnoses Peripheral Vascular Disease Onychomycosis Pain Toe Left Pain Toe Right Kathy Gutierres D.P.M. [address] [place] [address] Phone: tel: fax: [facility] Region Referral ID Status Reason Start Date Expiration Date Visits Re quested Visits Authorized [id number] Closed 09/04/2024 03/06/2026 1 1 Encounter Details Date Type Department Care Team (Late st Contact Info) Description 12/11/2024 9:30 AM CDT Office Visit Department of Orthopedic Surgery in [address] [place] [address] Kathy Gutierres, D.P.MDon [address] [place] [phone] Peripheral Vascular Disease (Primary Dx); Onychomycosis; Pain Toe Left; Pain Toe Right Discharge Disposition: Home or Self Care Social History Tobacco Use Types Packs/Day Years Used Date Smoking Tobacco: Never Passive Smoke Exposure: Never Smokeless Tobacco: Never Alcohol Use Standard Drinks/Week Comments Not Currently 0 (1 standard drink = 0.6 oz pur e alcohol) Occassionaly [facility] Utilities Answer Date Recorded In the [...] often do you attend chur ch or denominational services? More than 4 times per year 08/26/2021 Do you belong to any clubs o r organizations such as scientology groups, unions, fraternal or athletic groups, or [...] Answer Date Recorded PHQ-2 Score 1 06/05/2024 [facility] of Occupat ional Health - [...] your living situation today? I have a [facility] place to live 06/05/2024 Education Answer Date Recorded What is the highest level of school you have completed or the highest degree you have received? Associate degree: academic program 10/09/2020 Comments No Sex and Gender Information Value Date Recorded Sex Assigned at Not on file Legal Sex Female 8:16 PM SENIOR ELECTRICAL DESIGN ENGINEER Gender Identity Female 11/13/2020 2:20 PM SENIOR ELECTRICAL DESIGN ENGINEER Sexual Orientation Straight 11/13/2020 2: 20 PM SENIOR ELECTRICAL DESIGN ENGINEER Occupation Industry Job Start Date Job End [...] Office Visit Department of Orthopedic Surgery in [address] [place] [phone] Kathy Gutierres D.P.MDon [address] [place] [phone] Discharge Disposition: Home or Self Care Scheduled [...] documented as of this encounter Care Teams Dog Sitter Relationship Specialty Start Date End Date Apolonia Peguero MPAS, P.A.-C., P.A. [address] [place] [phone] PCP - General Family Medicine 06/02/18 [facility] [place] Dentist 06/05/24 [facility] [place] Junior Business Analyst 06/05/24 documented as of this encounter
--- OUTSIDE RECORDS SUMMARY | 2025-01-19 13:15 | XMS_ITS | Clinical Summary ---
Author Organization [facility] Address [address] [place] [address] Care Team Providers Care Industrial Electrical Engineer Name Role Phone Hetal Krishnamurthy DO Primary [...] Description 01/15/2025 10:15 AM CDT Office Visit [facility] [address] [place] [address] Baylee Ceballos MD Medication Management 01/15/2025 Travel 12/29/2024 Telephone [facility] [address] [place] [address] Baylee Ceballos MD 11/20/2024 10:45 AM CRYOLITE RECOVERY OPERATOR Office Visit [facility] [address] [place] [address] Baylee Ceballos MD Medication Management 11/20/2024 Travel [...] Description 04/16/2025 10:15 AM CDT Office Visit [facility] [address] [place] [address] Baylee Ceballos MD [address] [place] [address] Health Maintenance Due Date Last Done Comments [...] 08/17/2007 Tdap Completed 02/18/2015 Insurance [place] [id number] [place] [phone] MEDICARE PART B HB ONLY Care Teams Industrial Electrical Engineer Relationship Specialty Start Date End Date Hetal Krishnamurthy DO [address] [place] [address] PCP - General Family Practice 06/29/23
== END 2025-01-19 13:54 | disposition home or self-care (01) ==
PROVIDERS: Emergency Provider Internal Medicine; PCP Internal Medicine
DX: T25.012A Burn of unspecified degree of left ankle, initial encounter (principal)
CPT/HCPCS: 99282; 99283

== ENCOUNTER 2025-01-23 08:37 | Outpatient (CLI) | payer MEDICARE, BC, SELFPAY | END 2025-01-23 08:38 | disposition home or self-care (01) | LOC: WOUND 08:38 | PROVIDERS: PCP Internal Medicine; Visit Provider Nurse Practitioner Family | DX: T25.312A Burn of third degree of left ankle, initial encounter (principal); X11.8XXA Contact with other hot tap-water, initial encounter; I73.9 Peripheral vascular disease, unspecified; I83.93 Asymptomatic varicose veins of bilateral lower extremities | CPT/HCPCS: 97597; G0463 ==

== ENCOUNTER 2025-01-30 08:55 | Outpatient (CLI) | payer MEDICARE, BC, SELFPAY ==
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
== END 2025-01-30 08:56 | disposition home or self-care (01) ==
PROVIDERS: PCP Internal Medicine; Visit Provider Physician Assistant
DX: T25.312A Burn of third degree of left ankle, initial encounter (principal); M25.572 Pain in left ankle and joints of left foot; I73.9 Peripheral vascular disease, unspecified; I83.93 Asymptomatic varicose veins of bilateral lower extremities; X11.8XXA Contact with other hot tap-water, initial encounter
CPT/HCPCS: 73610; 97597; G0463

== ENCOUNTER 2025-02-06 09:03 | Outpatient (CLI) | payer MEDICARE, BC, SELFPAY | END 2025-02-06 09:04 | disposition home or self-care (01) | LOC: WOUND 09:03 | PROVIDERS: PCP Internal Medicine; Visit Provider Nurse Practitioner Family | DX: T25.312A Burn of third degree of left ankle, initial encounter (principal); I73.9 Peripheral vascular disease, unspecified; I83.93 Asymptomatic varicose veins of bilateral lower extremities; X11.8XXA Contact with other hot tap-water, initial encounter | CPT/HCPCS: 97597 ==

== ENCOUNTER 2025-02-15 14:00 | Outpatient (CLI) | payer MEDICARE, BC, SELFPAY | END 2025-02-15 14:01 | disposition home or self-care (01) | LOC: WOUND 14:00 | PROVIDERS: PCP Internal Medicine; Visit Provider Nurse Practitioner Family | DX: T25.312A Burn of third degree of left ankle, initial encounter (principal); I73.9 Peripheral vascular disease, unspecified; I83.93 Asymptomatic varicose veins of bilateral lower extremities; X11.8XXA Contact with other hot tap-water, initial encounter | CPT/HCPCS: 11042 ==

== ENCOUNTER 2025-02-20 09:06 | Outpatient (CLI) | payer MEDICARE, BC, SELFPAY | END 2025-02-20 09:07 | disposition home or self-care (01) | LOC: WOUND 09:06 | PROVIDERS: PCP Internal Medicine; Visit Provider Nurse Practitioner Family | DX: T25.312A Burn of third degree of left ankle, initial encounter (principal); I73.9 Peripheral vascular disease, unspecified; I83.93 Asymptomatic varicose veins of bilateral lower extremities; X11.8XXA Contact with other hot tap-water, initial encounter | CPT/HCPCS: 11042 ==

== ENCOUNTER 2025-02-27 09:00 | Outpatient (CLI) | payer MEDICARE, BC, SELFPAY | END 2025-02-27 09:01 | disposition home or self-care (01) | LOC: WOUND 09:00 | PROVIDERS: PCP Internal Medicine; Visit Provider Nurse Practitioner Family | DX: T25.312A Burn of third degree of left ankle, initial encounter (principal); I73.9 Peripheral vascular disease, unspecified; I83.93 Asymptomatic varicose veins of bilateral lower extremities; X11.8XXA Contact with other hot tap-water, initial encounter | CPT/HCPCS: 11042 ==

== ENCOUNTER 2025-03-09 10:22 | Outpatient (CLI) | payer MEDICARE, BC, SELFPAY | END 2025-03-09 10:23 | disposition home or self-care (01) | LOC: WOUND 10:23 | PROVIDERS: PCP Internal Medicine; Visit Provider Nurse Practitioner Family | DX: T25.312A Burn of third degree of left ankle, initial encounter (principal) | CPT/HCPCS: G0463 ==

== ENCOUNTER 2025-03-16 09:34 | Outpatient (CLI) | payer MEDICARE, BC, SELFPAY | END 2025-03-16 09:35 | disposition home or self-care (01) | LOC: WOUND 09:36 | PROVIDERS: PCP Internal Medicine; Visit Provider Nurse Practitioner Family | DX: T25.312A Burn of third degree of left ankle, initial encounter (principal); I73.9 Peripheral vascular disease, unspecified; I83.93 Asymptomatic varicose veins of bilateral lower extremities; X11.8XXA Contact with other hot tap-water, initial encounter | CPT/HCPCS: 97597 ==

== ENCOUNTER 2025-03-30 09:36 | Outpatient (CLI) | payer MEDICARE, BC, SELFPAY | END 2025-03-30 09:37 | disposition home or self-care (01) | LOC: WOUND 09:37 | PROVIDERS: PCP Internal Medicine; Visit Provider Nurse Practitioner Family | DX: T25.312D Burn of third degree of left ankle, subsequent encounter (principal); I73.9 Peripheral vascular disease, unspecified; I83.93 Asymptomatic varicose veins of bilateral lower extremities | CPT/HCPCS: G0463 ==

== ENCOUNTER 2025-06-04 07:42 | Outpatient (CLI) | payer MEDICARE, BC, SELFPAY | END 2025-06-04 07:43 | disposition home or self-care (01) | PROVIDERS: PCP Internal Medicine; Visit Provider Internal Medicine | DX: E78.5 Hyperlipidemia, unspecified (principal); M81.0 Age-related osteoporosis without current pathological fracture | CPT/HCPCS: 80053; 80061 ==

== ENCOUNTER 2025-06-14 09:21 | Outpatient (CLI) | payer MEDICARE, BC, SELFPAY ==
--- NOTE | 2025-06-14 09:30 | CRLHL7_ITS ---
For Patients: As a result of the Century Cures Act, medical imaging exams and procedure reports are released immediately into your electronic medical record. You may view this report before your referring provider. If you have questions, please contact your health care provider. DXA BONE MINERAL DENSITY STUDY Current height (in): 59.5. Weight (lb): 104. Menopause age: 51. Ethnicity: White. 1. Have you had a previous hip or vertebral fracture? No. 2. Have you had any fractures during your adult life which did not result from significant trauma (e.g., auto accident)? No. 3. Did either of your parents have a hip fracture? No. 4. Do you smoke? No. 5. Have you ever taken Glucocorticoids? No. 6. Do you have rheumatoid arthritis? Yes. 7. Do you have secondary osteoporosis? No. 8. Do you drink 3 or more alcoholic drinks per day? No. 9. Are you being treated for osteoporosis? Yes. 10. Have you ever taken any of the following medications: Actonel, Evista, Fosamax, Miacalcin, Reclast, Boniva, Forteo, HRT (i.e. estrogen/hormone therapy), Protelos, Prolia, Vitamin D, Calcium, other ??? please specify. ANSWER: Yes, Vitamin D, Fosamax, and Calcium. 11. Do you have any of the following medical conditions: Anorexia or bulimia, asthma or emphysema, end stage renal disease, hyperparathyroidism, any seizure disorders, cancer, inflammatory bowel diseases, hysterectomy, other ??? please specify. ANSWER: No. 12. What was your maximum height (inches)? 64. 13. Do you perform weight bearing exercise regularly? Yes. 14. Do you regularly consume dairy products? Yes. 15. Do you drink caffeinated beverages? No. 16. At what age did your period start? 13. 17. Are you premenopausal? No. 18. How many full term pregnancies have you had? 4. 19. Have you ever missed your period for more than 6 months in a row (not including or menopause)? No. TECHNIQUE: Bone mineral density study was performed using the [employer]. FINDINGS: The results of the study expressed as bone mineral density (BMD) are as follows: Lumbar spine L1 to L4: BMD: 0.818 g/cm2. T-score: -2.1. Z-score: 0.8. Neck Left: BMD: 0.578 g/cm2. T-score: -2.4. Z-score: 0.0. Right: BMD: 0.562 g/cm2. T-score: -2.6. Z-score: -0.1. Total Left: BMD: 0.743 g/cm2. T-score: -1.6. Z-score: 0.6. Right: BMD: 0.813 g/cm2. T-score: -1.1. Z-score: 1.2. IMPRESSION: Osteoporosis. Meet Benitez M.D. Diagnostic Radiologist [employer] [email or web address] DIOMEDES/eleazar DW/Dictated by: Meet Benitez MD @ 06/15/2025 11:28:00 AM (Electronically Signed)
== END 2025-06-14 09:22 | disposition home or self-care (01) ==
LOC: RAD 09:22
PROVIDERS: PCP Internal Medicine; Visit Provider Internal Medicine
DX: M81.0 Age-related osteoporosis without current pathological fracture (principal)
CPT/HCPCS: 77080

== ENCOUNTER 2025-07-17 13:45 | Outpatient (RCR) | payer MEDICARE, BC, SELFPAY ==
--- NOTE | 2025-07-05 13:46 | OT.OPGNE2 ---
OT Outpatient General/Neuro Eval OT Outpatient General/Neuro Eval* Start: 07/05/25 12:29 Freq: Status: Active Protocol: Document 07/05/25 12:30 CSS (Rec: 07/05/25 13:46 CSS [id number]) E-signed By Elayne Watkins OTR/L OT Outpatient Evaluation Details Type Type Eval Complexity Low Insurance Information Insurance Information Insurance Blue Cross/Blue Shield,Medicare B Information Outpatient History/Precautions Current Condition Referring Provider Dr. Fragoso Medical Diagnoses F03.90- Unspecified dementia, unspecified severity, without behavioral disturbance, psychotic disturbance, mood disturbance, and anxiety Treatment Diagnoses Z91.89- Potential for cognitive impairment Z74.1- Need for assistance with personal care Medical/Functional History Medical History Yes Reviewed Prior Level of at baseline: pt indep with ADLs, med management, meal Function/Mobility preparation, assist: driving, managing finances, Prior Medical History Prior Medical prior OT in 2023; Had MOCA in December 2023 of History indicating moderate cognitive impairment. Social History Type of Dwelling town home Lives With: Spouse Patient Subjective Subjective Patient Subjective Family reports pt has had 2 falls in last 6 months and 4-5 falls in last few years. Family would like more information in regards to what level of assistance may pt need at home. Pt currently reports no deficits with cognition. Pain Assessment Pain Pain Yes Pain Comments LUE: 10 at rest with activity pt's pain is significant in LUE Cognitive Assessments Performed Cognitive Assessments Performed Junior Cognitive Assessment (MOCA) Results The Hunter Cognitive Assessment (MoCA) was designed as a rapid screening instrument for mild cognitive dysfunction. It assesses different cognitive domains: attention and concentration, executive functions, memory, language, visuoconstructional skills, conceptual thinking, calculations, and orientation. MoCA Normal and Mild cognitive impairment score ranges were derived from the JAGS 2005 MoCA Validation study where MoCA MCI score ranges were defined by Petersons? Criteria. The moderate and severe groups were arbitrary defined by default as below ? Normal Cognitive performance 26 and above ? Mild impairment 18-25 ? Moderate impairment 10-17 ? Severe impairment 0-9 Pt scored: Vision/Hearing Vision Vision Changes wears corrective lenses Comments Hearing Hearing Hard of Hearing Hearing Comments tinnitus Balance Assessment Comments Balance Comments family notes concerns with balance Assessment Assessment Assessment Pt is an 85 year old female who is referred to OT due to cognitive changes/concerns. Pt currently lives with in town home where she receives assist with driving and managing finances. Family is interested in looking into additional supports but want further recommendation on how much support pt may require. OT recommends further cog assessment to help determine appropriate level of support pt may need. Today pt scores 17/30 on MOCA indicating moderate cog impairment . Further assessment recommended to help determine level of assist she made need. Pt and family also have concerns about LUE with ongoing pain and weakness; an internal message was sent to pt' s provider in regards to this concern. Occupational Therapy Treatment Plan - OP Potential Rehabilitation Fair Potential Set Goals Goals Set with Yes Patient Goals Goals Goals to be met by 08/05/25: 1) Pt will participate in Cognitive Performance Test( CPT) to help family determine appropriate level of assistance to provide in regards to pt's cog impairment . 2) Pt will participate in MOCA screen. - goal met 3) Family will verbalize recommendations for ADL/IADL level of assist. Treatment Plan Treatment Plan Evaluation,Therapeutic Exercise,Therapeutic Activities, Self-Care/Home Management,Caregiver Training,Education Expected Frequency 1-2x Week Expected Duration 6-8 Weeks Certification Certification Statement I Certify That: Therapy Services Provided,Therapy Plan Established, Therapy Plan Reviewed Certification Information Clinic ID # [id number] Initial 07/05/25 Certification Date Recertification Due 08/05/25 Date Provider Signature Yes Required Provider Signature POC & Medical Necessity Shows Agreement With Physician NPI Number Write NPI# Here Physician Comment/ Comment or Changes Change Physician Signature Please Sign/Date Here & Date Requested
== END 2025-07-17 16:00 | disposition home or self-care (01) ==
PROVIDERS: PCP Internal Medicine; Visit Provider Internal Medicine
DX: F03.90 Unspecified dementia, unspecified severity, without behavioral disturbance, psychotic disturbance, mood disturbance, and anxiety (principal); Z91.89 Other specified personal risk factors, not elsewhere classified; Z74.1 Need for assistance with personal care; Z51.89 Encounter for other specified aftercare
CPT/HCPCS: 97165; 97535

== ENCOUNTER 2025-07-19 07:57 | Outpatient (CLI) | payer MEDICARE, BC, SELFPAY ==
--- NOTE | 2025-07-19 08:15 | CRLHL7_ITS ---
For Patients: As a result of the Century Cures Act, medical imaging exams and procedure reports are released immediately into your electronic medical record. You may view this report before your referring provider. If you have questions, please contact your health care provider. CLINICAL INDICATION: Left shoulder injury. COMPARISON IMAGING STUDIES: Radiographs from 06/06/2025. TECHNICAL: Non-contrast MRI of the left shoulder. Axial, sagittal oblique and coronal oblique T1, PD, PD FS, T2 and T2 FS images. 1.5 Alessandra MR scanner. FINDINGS: GLENOHUMERAL JOINT: Effusion/Joint Space: Small amount of glenohumeral joint fluid. Humeral Head Articular Cartilage: High-grade humeral head articular cartilage wear (grade 3). Glenoid Articular Cartilage: Subchondral cystic change within the glenoid relates to full-thickness grade 4 cartilage abnormality. Alignment: Maintained. Capsule: No capsular thickening. There is edema involving portions of the glenohumeral joint capsule. OSSEOUS STRUCTURES: No acute fracture or avascular necrosis. CORACOACROMIAL ARCH: Acromial Morphology: Type 2 acromial morphology. Lateral downward sloping of the acromion. No os acromiale. No significant subacromial spur. Lateral acromial thickness is 7 mm. Acromiohumeral Interval: At its narrowest, the interval measures 9 mm. Coracohumeral Interval: At its narrowest, the coracohumeral interval measures 8 mm. Coracoid index is 12 mm. ACROMIOCLAVICULAR JOINT REGION: AC joint degenerative arthrosis with small AC joint effusion. Coracoclavicular ligament intact. BURSAE: Moderate subacromial-subdeltoid bursitis. ROTATOR CUFF TENDONS AND MUSCLES AND DELTOID: Supraspinatus and Infraspinatus: Severe distal supraspinatus and moderate tendinosis of the anterior distal infraspinatus tendon. There is likely fraying of the distal supraspinatus tendon. No high-grade partial or full-thickness tear of either distal tendon. Teres Minor: No tendinosis, tendon tearing, muscle atrophy or muscle edema. Subscapularis: Distal tendon intact. No muscle atrophy. Deltoid: No muscle atrophy or edema. BICEPS TENDON, LONG HEAD: Tendinosis of the proximal intra-articular long head of the biceps tendon. No dislocation of tendon from bicipital groove. Moderate fluid within the biceps tendon sheath. GLENOID LABRUM: Degenerative labral changes with areas of degenerative labral fraying. OTHER FINDINGS: There is no abnormality within the suprascapular or spinoglenoid notches nor within the quadrilateral space. No axillary adenopathy or mass. IMPRESSION: 1. Severe distal supraspinatus and moderate distal infraspinatus tendinosis. No high-grade partial or full-thickness rotator cuff tear. 2. 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 Degenerative labral changes. 3. Advanced AC joint degenerative arthrosis with small effusion. 4. Moderate subacromial-subdeltoid bursitis. 5. Tendinosis of the proximal long head of biceps tendon. 6. No acute fracture. Dictated by Braydon Diaz MD @ 07/19/2025 12:09:04 PM (Electronically Signed)
== END 2025-07-19 07:58 | disposition home or self-care (01) ==
LOC: MRI 07:58
PROVIDERS: PCP Internal Medicine; Visit Provider Internal Medicine
DX: M25.512 Pain in left shoulder (principal); M75.102 Unspecified rotator cuff tear or rupture of left shoulder, not specified as traumatic; M19.012 Primary osteoarthritis, left shoulder; M75.52 Bursitis of left shoulder; S49.92XA Unspecified injury of left shoulder and upper arm, initial encounter
CPT/HCPCS: 73221

== ENCOUNTER 2025-08-16 17:27 | Outpatient (CLI) | payer MEDICARE, BC, SELFPAY | END 2025-08-16 17:28 | disposition home or self-care (01) | LOC: AMB 08-20 18:36 | PROVIDERS: PCP Internal Medicine; Visit Provider Emergency Medicine | DX: S79.929A Unspecified injury of unspecified thigh, initial encounter (principal); W07.XXXA Fall from chair, initial encounter; Y92.000 Kitchen of unspecified non-institutional (private) residence as the place of occurrence of the external cause | CPT/HCPCS: A0425; A0429 ==

== ENCOUNTER 2025-08-16 18:02 | Inpatient (IN) | payer MEDICARE, BC, SELFPAY ==
--- OUTSIDE RECORDS SUMMARY | 2025-08-10 13:00 | XMS_ITS | Encounter Summary ---
Author Organization [facility] Address [address] [place] [address] Care Team Providers Care Over Hauler Helper Name Role Phone Apolonia Peguero, P.A.-C., P.A. Primary Care Provider Reason for Referral * Outpatient (Routine) - Authorized Specialty Diagnoses / Procedures Referred By Lolly fiore Referred To Contact Orthopedic Surgery Diagnoses Pain Shoulder Left Aleida Hutchins APRN, C.N.P. [address] [place] [address] Phone: tel: fax: [facility] Region Referral ID Status Reason Start Date Expiration Date V isits Requested Visits Authorized [id number] Authorized 08/10/2025 02/09/2027 1 1 Scheduling Instructions Ortho internal referral panel order, imaging before Consult visit OMER ENGINEER Reason for Visit * Reason Comments Shoulder Pain Left shoulder pain/i njury, patient requesting a 2nd opinion. * Appointment Request (Routine) - Closed Specialty Diagnoses / Procedures Referred By Lolly t Referred To Contact Family Medicine Referral ID Status Reason Start Date Expiration Date Visits Re quested Visits Authorized [id number] Closed 08/10/2025 11/10/2026 1 1 Encounter Details Date Type Department Care Team (Late st Contact Info) Description 08/10/2025 1:00 PM CUSTOMER ENGINEER Office Visit Department of Family Medicine, [facility], in [place], [place] [address] [phone] Provider, Aleida Alcantara, ALIYAH, C.N.P. [address] [phone] Pain Shoulder Left (Primary Dx) Discharge Disposition: Home or Self Care Social History Tobacco Use Types Packs/Day Years Used Date Smoking Tobacco: Never Passive Smoke Exposure: Never Smokeless Tobacco: Never Alcohol Use Standard Drinks/Week Comments Not Currently 0 (1 standard drink = 0.6 oz pur e alcohol) Occassionaly [facility] Utilities Answer Date Recorded In the past 12 months has e [employer], gas, oil, or water [employer] threatened to shut off services in your [...] by your partner or ex-partner? No 06/05/2024 Hunger Vital Sign Answer Date Recorded [...] PHQ-9 Total Score (max 27) 5 06/05 Housing Stability Answer Date Recorded What is your living situation today? I have a [place] place to live 06/05/2024 Education Answer Date Recorded What is the highest level of school you have completed or the highest degree you have received? 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 Not on file Not on file Retired [employer] Not on file Not on file Not on fi le Retired from [employer] Not on file Not on file Not on file documented as of this encounter Last Filed Vital Signs Vital Sign Reading Time Taken Comments Blood Pressure - - Pulse - - Temperature 36.4 C (97.5 F) 08/10/2025 12:49 PM CUSTOMER ENGINEER Respiratory Rate 24 08/10/2025 12:49 PM CUSTOMER ENGINEER Oxygen Saturation - - Inhaled Oxygen Concentration - - Weight 49 kg (108 lb 0.4 oz) 08/10/2025 12:49 PM CUSTOMER ENGINEER Height - - Body Mass Index 20.66 06/05/2024 8:58 AM CDT documented in this encounter Plan of Treatment Upcoming Encounters Date Type Department Care Team (Late st Contact Info) Description 09/10/2025 11:15 AM CUSTOMER ENGINEER Office Visit Department of Orthopedic Surgery in [address] [place] [address] Kathy Gutierres D.PDonMDon [address] [place] [phone] Discharge Disposition: Home or Self Care Scheduled Referrals Name Type Priority Associated Diagnoses Order Schedule Orthopedic Surgery - Shoulder non surgical consult (clinic) Outpatient Referral Routine Pain Shoulder Left Expected: 08/10/2025 (Approximate), Expires: 11/10/2026 documented as of this encounter Goals Goal [...] as of this encounter Visit Diagnoses Diagnosis Pain Shoulder Left- Primary documented in this encounter Additional Health Concerns Assessment Noted Time PHQ-9 Depression Total Score: 5 06/05/20 24 8:35 AM CDT A fall risk assessment has been complete d for the patient 04/11/2021 10:47 AM CDT documented as of this encounter Care Teams Over Hauler Helper Relationship Specialty Start Date End Date Apolonia Peguero, MICHELLES, P.A.-C., P.A. [address] [place] [phone] PCP - General Family Medicine 06/02/18 [facility] [place], [place] Dentist 06/05/24 [facility] [place], [place] Services Manager 06/05/24 documented as of this encounter
[2025-08-16] VITALS (17 sets, daily range): BP systolic 128–186; BP diastolic 70–88; PULSE 80–91; RESP 11–24; TEMP 36.2–36.4; O2SAT 91–98; BMI 20.2
--- OUTSIDE RECORDS SUMMARY | 2025-08-16 18:04 | XMS_ITS | Clinical Summary ---
Author Organization [facility] Address [address] [place] [address] Care Team Providers Care Computer Technologist Name Role Phone Apolonia Peguero P.Kathleen.-C., P.A. Primary Care Provider Source Comments Patient records contain information from all sites at [facility]. For routine questions regarding patient records, call [phone] during business hours, M-F 8:00 AM - 5:00 PM Central Time. Record requests for emergency care only can be directed to [phone] at any time.[facility] Allergies Active Allergy Reactions Criticality Noted [...] tablet by mouth at bedtime. 4 Active ARIPiprazole (Abilify) 5 mg tablet Take 15 mg by mouth. 5 Active QUEtiapine (SEROqueL) 100 mg tablet Take 100 mg by mouth. 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 Fracture Vertebra Compression Thoracic Closed Angel bsequent 11/22/2020 Fracture Cervical Vertebra Compression Closed Angel bsequent 10/03/2020 Anxiety 01/22/2020 Overview (08/30/2023): Follows with psychiatrist at [facility]. Has been taking Abilify. Varicose Vein Lower [...] Encounters Date Type Department Care Team Description 08/10/2025 1:00 PM OPERATIONS FORESTER Office Visit Department of Family Medicine, [facility], in [place], [place] [address] [place] [phone] Provider, Adalid Placeholder Aleida Hutchins, ALIYAH, C.N.P. Pain Shoulder Left (Primary Dx) Discharge Disposition: Home or Self Care 07/24/2025 Orders Only [facility] Apolonia Peguero, RADHA, P.A.-C., P.A. 06/11/2025 11:15 AM CDT Office Visit Department of Orthopedic Surgery [place] [address] [place] [phone] Kathy Gutierres D.P.M. Peripheral Vascular Disease (Primary Dx); Onychomycosis; Pain Toe Left; Pain Toe Right Discharge Disposition: Home or Self Care from Last 3 Months Immunizations Immunization Administration [...] Maternal Grandfather No Known Problems Maternal Grandmother Anxiety/ depression Mother Armain Glaucoma Mother Armain Heart failure Mother Armain Panic disorder Mother Armain No Known Problems Paternal Grandfather Heart attack Paternal Grandmother Cataracts Sister Crys Glaucoma Sister Crys Macular degeneration Sister Crys high stress Son 1 Abe Accident Son 2 Indio No Known Problems Son 3 Joel Alarcon No Known Problems Son 4 Shlomo Relation Name Status Comments Brother Baby Boy Father Jca Maternal Grandfather Maternal Grandmother Mother Fernie Paternal Grandfather Paternal Grandmother Sister Crys Alive Son 1 Abe Alive Son 2 Indio Alive Son 3 Joel Alarcon Alive Son 4 Shlomo Alive Social History Tobacco Use Types Packs/Day Years Used Date Smoking Tobacco: Never Passive Smoke Exposure: Never Smokeless Tobacco: Never Tobacco Cessation:Counseling Given: Not Answered Alcohol Use Standard Drinks/Week Comments Not Currently 0 (1 standard drink = 0.6 oz pur e alcohol) Occassionaly [facility] Utilities Answer Date Recorded In the past 12 months has e [employer], gas, oil, or water [employer] threatened to shut off services in your [...] your living situation today? I have a [facility] place to live 06/05/2024 Education Answer Date Recorded What is the highest level of school you have completed or the highest degree you have received? Associate degree: academic program 10/09/2020 Comments No Sex and Gender Information Value Date Recorded Sex Assigned at Not on file Legal Sex Female 8:16 PM OPERATIONS FORESTER Gender Identity Female 11/13/2020 2:20 PM OPERATIONS FORESTER Sexual Orientation Straight 11/13/2020 2: 20 PM OPERATIONS FORESTER Occupation Industry Job Start Date Job End [...] AM CDT Temperature 36.4 C (97.5 F) 08/10/2025 12:49 PM OPERATIONS FORESTER Respiratory Rate 24 08/10/2025 12:49 PM OPERATIONS FORESTER Oxygen Saturation 97% 06/05/2024 8:58 AM CDT Inhaled Oxygen Concentration - - Weight 49 kg (108 lb 0.4 oz) 08/10/2025 12:49 PM OPERATIONS FORESTER Height 154 cm (5' 0.63) 06/05/2024 8:58 AM CDT Body Mass Index 20.66 06/05/2024 8:58 AM CDT Plan of Treatment Upcoming Encounters Date Type Department Care Team (Late st Contact Info) Description 09/10/2025 11:15 AM OPERATIONS FORESTER Office Visit Department of Orthopedic Surgery in [address] [place] [address] Kathy Gutierres D.PMacie [address] [place] [phone] Discharge Disposition: Home or Self Care Health Maintenance Due Date Last Done Comments Zoster Vaccines (1 of 2) 1991 RSV vaccine - (32-36 weeks) or 50+ years (1 - 1-dose 75+ series) 2016 Glucose Test for Med Monitoring 08/20/2024 08/20/2023, 01/22/2023, 06/24/2022, Additional history exists Depression Screening (Annual PHQ-2) 09/20/2024 Fall Risk Screen (Annual) 09/20/2024 Visit: Annual, age 65+ (or Medicare and <65) 10/26/2024 10/26/2023 Visit: Medicare Annual Wellness 06/06/2025 06/05/2024, 03/02/2023 COVID-19 Vaccine (2024- season) 2026 07/31/2025, 07/14/2024, 10/07/2023, Additional history exists DTaP,Tdap,and Td Vaccines (3 - Td or Tdap) 11/14/2034 11/14/2024, 02/18/2015, 01/14/2005 Pneumococcal vaccine (50+ years) Completed 11/14/2024, 07/13/2014, 08/17/2007 Influenza Vaccine Completed 07/31/2025, , 10/11/2023, Additional history exists IPV Vaccines Aged Out No longer eligi [...] of stairs. Medical Devices Implanted Type Area Maintenance Welder Device Identifier Shelf Expiration Date Model / Serial / Lot Hardware E.G. Pins/Screws/R ods Hardware e.g. pins/screws/ rods Mouth Imaging Marker Imaging Marker Right: Breast Procedures Procedure Name Priority Date/Time Associated Diagnosis Comments BASIC METABOLIC PANEL, S/P Routine 08/20/2023 9:15 AM OPERATIONS FORESTER Osteoporosis Senile Without Pathological Fracture from Last 3 Months or Most Recently Relevant to Health Maintenance Results * (ABNORMAL) Basic Metabolic Panel (08/20/2023 9:15 AM OPERATIONS FORESTER) Potassium, P 4.5 3.6 - 5.2 mmol/L 08/20/2023 9:54 AM OPERATIONS FORESTER AUST Sodium, P 142 135 - 145 mmol/L 08/20/2023 9:54 AM OPERATIONS FORESTER AUST Chloride, P 105 98 - 107 mmol/L 08/20/2023 9:54 AM OPERATIONS FORESTER AUST Bicarbonate, P 29 22 - 29 mmol/L 08/20/2023 9:54 AM OPERATIONS FORESTER AUST Anion Gap, P 8 7 - 15 08/20/2023 9:54 AM OPERATIONS FORESTER AUST BUN (Blood Urea Nitrogen), P 28(H) 6 - 21 mg/dL 08/20/2023 9:54 AM OPERATIONS FORESTER AUST Creatinine 0.84 0.59 - 1.04 mg/dL 08/20/2023 9:54 AM OPERATIONS FORESTER AUST Estimated GFR (eGFR) 69 >=60 mL/min/BSA 08/20/2023 9:54 AM OPERATIONS FORESTER AUST Comment: Estimated GFR calculated using the 2020 CKD_EPI creatinine equation. Calcium, Total, P 10.0 8.8 - 10.2 mg/dL 08/20/2023 9:54 AM OPERATIONS FORESTER AUST Glucose, P 104 70 - 140 mg/dL 08/20/2023 9:54 AM OPERATIONS FORESTER AUST Blood (Blood, Venous) 08/20/2023 9:15 AM OPERATIONS FORESTER 08/20/2023 9:18 AM OPERATIONS FORESTER us Larry Everett M.D. LAB BLOOD ADD-ON Final Result [facility] [address] [place] [address], [place] AUST [facility] [address] [place] [address] from Last 3 Months or Most Recently Relevant to Health Maintenance Insurance MEDICARE [facility] Care Teams Computer Technologist Relationship Specialty Start Date End Date Apolonia Peguero MPAS, P.A.-C., P.A. [address] [place] [phone] PCP - General Family Medicine 06/02/18 [facility] [place], [place] Dentist 06/05/24 [facility] [place], [place] Automation Engineer 06/05/24
--- OUTSIDE RECORDS SUMMARY | 2025-08-16 18:04 | XMS_ITS | Clinical Summary ---
Author Organization [facility] Address [address] [place] [id number] Care Team Providers Care Casing Soaker Name Role Phone Hetal Krishnamurthy DO Primary Care Provider [phone] Allergies Active Allergy Reactions Criticality Noted Date [...] of need: 99 1 Each 4 Active Additional Information Patient not taking.Reported on 04/16/2025 QUEtiapine (SEROQUEL) 25 mg tabletIndicatio ns:Mood disorder Take 2 Tablets (50 mg) by mouth at bedtime. 180 Tablet 1 5 Active alendronate (FOSAMAX) 70 mg tablet Take 1 Tablet by mouth once weekly. 5 Active triamcinolone (ARISTOCORT; KENALOG) 0.1 % cream 5 Active Active Problems Problem Noted Date [...] Encounters Date Type Department Care Team Description 08/14/2025 Telephone [facility] [address] [place] [address] Baylee Ceballos MD 07/19/2025 Telephone [facility] [address] [place] [address] Baylee Ceballos MD Care Coordination (Dropped off Letter) 07/16/2025 9:45 AM CDT Office Visit [facility] [address] [place] [address] Baylee Ceballos MD Medication Management; Follow Up 07/16/2025 Travel from Last 3 Months Immunizations Immunization Administration Dates Next Due COVID-19 vaccine (Moderna 100mcg/0.5mL) RICHARD JONES 04/14/2022,07/22/2021,12/12/2020,2020 Influenza Virus, Unspecified 09/17/2016, 06/11/2015,07/13/2014,2010,08/17/2007 Influenza, High-dose Inactivated 07/20/2019,12/05/2016,06/11/2015 Influenza, High-dose Quadriv alent Inactivated 10/11/2023,09/05/2022,08/29/2021,2019 Influenza, [...] Answer Date Recorded PHQ-2 TOTAL SCORE 0 04/16/2025 Social Connections Answer Date Recorded Frequency of [...] Sign Reading Time Taken Comments Blood Pressure 146/78 04/16/2025 11:08 AM CDT Pulse 82 04/16/2025 10:30 AM CDT Temperature - - Respiratory Rate - - Oxygen Saturation 98% 12/01/2023 1:46 PM CDT Inhaled Oxygen Concentration - - Weight 50.8 kg (111 lb 14.4 oz) 025 10:19 AM CDT Height 152.4 cm (5') 03/08/2023 1:17 PM CDT Body Mass Index 21.85 03/08/2023 1:17 PM CDT Plan of Treatment Upcoming Encounters Date Type Department Care Team (Late st Contact Info) Description 10/15/2025 10:15 AM CAGE CLERK Office Visit [facility] [address] [place], [place] [phone] Baylee Ceballos MD [address] [place] [address] Health Maintenance Due Date Last Done Comments Zoster (shingles) series for age 50+ (1 of 2) 1991 DEXA/DXA scan for age 65+ 2006 Medicare Wellness for age 65+ 2006 RSV vaccine for adults or (1 - 1-dose 75+ series) 2016 BMI (ht and wt on same day) for age 18+ 03/08/2024 03/08/2023 Tetanus booster 02/18/2025 02/18/2015, 01/14/2005 COVID-19 vaccine series (2024- season) 2025 07/14/2024, 10/07/2023, 04/14/2022, Additional history exists Influenza Vaccine (#1) 2025 9, 09/17/2016, 09/17/2016, Additional history exists Depression screening for age 12+ 04/16/2026 04/16/2025, 09/06/2024, 05/31/2024, Additional history exists Pneumococcal series for age 50+ Completed 07/13/2014, 08/17/2007 Hepatitis B series for 19+ Aged Out N o longer eligible based on patient's age to complete this topic Insurance BLUE CROSS [place] BLUE MR PB ONLY BLUE [place]OSS [place] BLUE HB ONLY MEDICARE PART B HB ONLY Care Teams Casing Soaker Relationship Specialty Start Date End Date Hetal Krishnamurthy DO [address] [place] [address] PCP - General Family Practice 06/29/23
--- OUTSIDE RECORDS SUMMARY | 2025-08-16 18:04 | XMS_ITS ---
Author Organization [facility] Address [address] [place] [address] Care Team Providers Care Nurse Transitional Name Role Phone Apolonia Peguero, P.A.-C., P.A. [...] 01/22/2020 Overview (08/30/2023): Follows with psychiatrist at [facility]. Has been taking Abilify. Varicose Vein Lower [...]
--- OUTSIDE RECORDS SUMMARY | 2025-08-16 18:04 | XMS_ITS | Encounter Summary ---
Author Organization [facility] Address [address] [place] [address] Care Team Providers Care Enameler Name Role Phone Apolonia Peguero P.A.-C., P.A. Primary Care Provider Reason for Referral * Outpatient (Routine) - Authorized Specialty Diagnoses / Procedures Referred By [facility] t Referred To Contact Apolonia Peguero MPAS, P.A.-C., P.A. [address] [phone] Phone: tel: fax: [facility] Referral ID Status Reason Start Date Expiration Date V isits Requested Visits Authorized [id number] Authorized 07/24/2025 01/23/2027 1 1 Scheduling Instructions Nurse AWV Do not schedule prior to due date to ensure insurance coverage Visit: Medicare Annual Wellness due on 06/06/2025. [employer]QUIPMENT TESTER Encounter Details Date Type Department Care Team (Late st Contact Info) Description 07/24/2025 Orders Only [facility] Apolonia Peguero MPAS, P.A.-C., P.A. [address] [phone] Social History Tobacco Use Types Packs/Day Years Used Date Smoking Tobacco: Never Passive Smoke Exposure: Never Smokeless Tobacco: Never Alcohol Use Standard Drinks/Week Comments Not Currently 0 (1 standard drink = 0.6 oz pur e alcohol) Occassionaly [facility] Utilities Answer Date Recorded In the past 12 months has e [employer], gas, oil, or water company threatened to [...] your living situation today? I have a [facility] place to live 06/05/2024 Education Answer Date Recorded What is the highest level of school you have completed or the highest degree you have received? Associate degree: academic program 10/09/2020 Comments No Sex and Gender Information Value Date Recorded Sex Assigned at Not on file Legal Sex Female 8:16 PM ELECTROMECH[employer]ICAL EQUIPMENT TESTER Gender Identity Female 11/13/2020 2:20 PM ELECTROMECHANICAL EQUIPMENT TESTER Sexual Orientation Straight 11/13/2020 2: 20 PM ELECTROMECHANICAL EQUIPMENT TESTER Occupation Industry Job Start Date Job End [...] st Contact Info) Description 09/10/2025 11:15 AM ELECTROMECHANICAL EQUIPMENT TESTER Office Visit Department of Orthopedic Surgery in [address] [place] [address] Kathy Gutierres, D.P.M. [address] [place] [address] Discharge Disposition: Home or Self Care Scheduled Referrals Name Type Priority Associated Diagnoses Orde r Schedule Primary Care nurse visit (clinic) - [facility]; Medicare Annual Wellness Outpatient Referral Routine Expected: 08/21/2025, Expires: 01/10/2026 documented as of this encounter Goals Goal [...] documented as of this encounter Care Teams Enameler Relationship Specialty Start Date End Date Apolonia Peguero, RADHA, P.A.-C., P.A. [address] [phone] PCP - General Family Medicine 06/02/18 [facility] [place], [place] Dentist 06/05/24 [facility] [place], [place] Release Coordinator 06/05/24 documented as of this encounter
--- NOTE | 2025-08-16 18:13 | CRLHL7_ITS ---
For Patients: As a result of the Century Cures Act, medical imaging exams and procedure reports are released immediately into your electronic medical record. You may view this report before your referring provider. If you have questions, please contact your health care provider. Indication: Fall Technique: Pelvis and left hip, 3 views. Comparison: None. Findings/Impression: There is questionable lucency through and cortical irregularity along the left femoral neck suspicious for acute fracture in the setting of recent trauma. A CT pelvis or left hip without contrast may be considered for further evaluation. The hips, pubic symphysis, and sacroiliac joints are congruent with [id number] degenerative changes. Enthesopathy along the greater trochanters bilaterally. Partially imaged degenerative changes of the lower lumbar spine. Vascular calcifications are present. The bones appear demineralized. Dictated by Apolonia Bui MD @ 08/16/2025 7:13:28 PM (Electronically Signed)
[2025-08-16] MEDS: ONDANSETRON 2 MG/ML inj 4 MG IVP ×2 (18:24→21:58)
--- NOTE | 2025-08-16 18:34 | ED.GENADULT ---
HPI - General Adult General Date Seen: 08/16/25 Chief complaint: Hip Injury/Pain Stated complaint: Fell/ Left hip Pain Time Seen by Provider: 08/16/25 18:08 History of Present Illness HPI narrative: Patient is an 85-year-old woman, she says she and her had just gotten home from [place] and she was walking in the kitchen, she was rounding the island and lost her balance, she says she hit her hip on the counter as she fell, and she thinks that she bruised it in some way. She was not able to stand up or bear weight. Brought in by EMS, they did not place an IV or give medications although she notes that she is having quite a bit of pain. She denies hitting her head, denies any neck or back pain or other injuries. She does have a prior history of dementia, notes a history of osteoporosis as well. She answers questions appropriately however. Other medical history includes anxiety, cervical compression fracture, remote breast cancer, peripheral vascular disease. Medications are reviewed, she is not anticoagulated. Related Data Home Medications ?Medication ?Instructions ?Recorded ?Confirmed fluticasone propionate 50 1 spray intranasal BID 11/07/23 07/31/25 mcg/actuation nasal spray,suspension meclizine 25 mg tablet 25 mg PO QID PRN 11/14/24 07/31/25 aripiprazole 5 mg tablet 10 mg PO DAILY 01/23/25 07/31/25 quetiapine 25 mg tablet 50 mg PO 01/23/25 07/31/25 Previous Rx's ?Medication ?Instructions ?Recorded alendronate 70 mg tablet (Fosamax) 70 mg PO QWEEK #4 tabs 06/19/25 Allergies Allergy/AdvReac Type Severity Reaction Status Date / Time pseudoephedrine AdvReac Intermediate Hypertensio Verified 07/31/25 09:26 n amoxicillin AdvReac Mild Diarrhea Verified 07/31/25 09:26 erythromycin base AdvReac Mild Gastrointestinal Verified 07/31/25 09:26 Upset ibuprofen AdvReac Mild Palpitation Verified 07/31/25 09:26 s risedronate sodium (From AdvReac Mild Unknown Verified 07/31/25 09:26 Actonel) levofloxacin AdvReac Unknown Tendon Verified 07/31/25 09:26 Issues Review of Systems Status of ROS: Reports: 6 or more systems reviewed and unremarkable except as noted in History and below [facility] Medical History Injury of left shoulder ?S49.92XA - Unspecified injury of left shoulder and upper arm, initial encounter (ICD-10) Osteoporosis ?M81.0 - Age-related osteoporosis without current pathological fracture (ICD-10) Dementia ?F03.90 - Unspecified dementia, unspecified severity, without behavioral disturbance, psychotic disturbance, mood disturbance, and anxiety (ICD-10) Hyperlipidemia ?E78.5 - Hyperlipidemia, unspecified (ICD-10) Allergic rhinitis ?J30.9 - Allergic rhinitis, unspecified (ICD-10) Sensorineural hearing loss ?H90.5 - Unspecified sensorineural hearing loss (ICD-10) Varicose veins of both lower extremities ?I83.93 - Asymptomatic varicose veins of bilateral lower extremities (ICD-10) Anxiety ?F41.9 - Anxiety disorder, unspecified (ICD-10) Hx of non anemic vitamin B12 deficiency ?Z86.39 - Personal history of other endocrine, nutritional and metabolic disease (ICD-10) Cervical kyphosis ?M40.202 - Unspecified kyphosis, cervical region (ICD-10) Cervical compression fracture ?S12.9XXA - Fracture of neck, unspecified, initial encounter (ICD-10) Breast cancer, right (2008) ?C50.911 - Malignant neoplasm of unspecified site of right female breast (ICD-10) Osteoporosis, 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 - Age-related osteoporosis without current pathological fracture (ICD-10) Chronic constipation ?K59.09 - Other constipation (ICD-10) Onychomycosis ?B35.1 - Tinea unguium (ICD-10) PVD (peripheral vascular disease) ?I73.9 - Peripheral vascular disease, unspecified (ICD-10) Surgical History History of section ?Z98.891 - History of uterine scar from previous surgery (ICD-10) History of arthroscopy of shoulder (2016) ?Z98.890 - Other specified postprocedural states (ICD-10) History of lumpectomy of right breast (2008) ?Z98.890 - Other specified postprocedural states (ICD-10) Family History Mother Depression Anxiety Glaucoma CHF (congestive heart failure) Father Heart disease Sister Glaucoma Macular degeneration Paternal Grandmother Myocardial infarction Social History What is your current living situation?: I presently have a place to live Problems where you live: no known problems In the past 12 months, utilities in danger of being shut off: no In past 12 months, lack of transportation kept you from medical appts, meetings, work, or getting things needed for daily living: no In the past 12 mos, have been you worried that your food would run out before you had money to buy more?: never true In the past 12 mos, the food you bought just didn't last and you didn't have money to buy more?: never true Smoking Status: Never smoker Do you use any of these nicotine containing products: None Second hand tobacco smoke exposure: No How often do you have a drink containing alcohol: monthly or less How many standard drinks containing alcohol do you have on a typical day: 1 or 2 How often do you have six or more drinks on one occasion: Never AUDIT-C Alcohol total score: 1 Non-prescribed substance use: denies use How often does anyone, including family, friends and others, physically hurt you: never How often does anyone, including family, friends and others, insult or talk down to you: never How often does anyone, including family, friends and others, threaten you with harm: never How often does anyone, including family, friends and others, scream or curse at you: never service: No Exam Narrative: Exam Narrative: Vital signs reviewed In general, an alert, nontoxic elderly woman. She looks comfortable lying in the bed. Head: Normocephalic, atraumatic. Eyes: Sclera clear. Pupils equal and reactive. ENT: Mucous membranes moist. Neck: Supple without adenopathy. Heart: Regular rate and rhythm without murmur. Lungs: Clear. No increased work of breathing, crackles or wheezes. Abdomen: Soft, nontender to palpation. Extremities: The left leg appears slightly shortened compared to the right, she does not seem to have any significant tenderness to palpation but does flinch with gentle movement of the left hip. Pulses are intact in both lower extremities, sensation is normal, capillary refill is brisk. Neurologic: Alert, conversant. Speech fluent, face symmetric. Moves all extremities equally. Skin: Warm, dry well perfused. Affect: Normal. Const: Vital Signs, click to edit/add: Vital Signs - 24 hr 08/16/25 18:11 Temperature 97.5 F L Pulse Rate [Pulse Oximeter] 84 Respiratory Rate 16 Blood Pressure [Le ft Upper Arm] 154/70 H Pulse Oximetry 95 Oxygen Delivery Me thod Room Air Course Course ED Course: Patient presents with pain in her left leg a little distal to the hip down to the knee after a fall at home. Will obtain x-rays of the hip to start, place an IV, give a small amount of fentanyl as well as Zofran for pain control prior to x-ray. I reviewed her plain films, I think there is a subtle femoral neck fracture. Radiology report reviewed and they note this as well but say that CT could be considered to delineate. I did discuss with the PA on-call for Orthopedics and she recommended CT scan. Patient is CT scan without contrast, I reviewed these images as well and note a femoral neck fracture. Discussed with hospitalist, patient will be admitted to the hospital as an inpatient, and P overnight, anticipated surgery in the morning. EKG ordered, blood work reviewed and notable for a normal white blood cell count and normal hemoglobin, BUN of 37 creatinine 0.9, normal otherwise. Diagnosis: Closed left femoral neck fracture Vital Signs Vital signs: Initial Vital Signs Temperature 97.5 F L 08/16/25 18:11 Temperature Source Temporal Artery Scan 08/16/25 18:11 Pulse Rate 84 08/16/25 18:11 Respiratory Rate 16 08/16/25 18:11 Blood Pressure 154/70 H 08/16/25 18:11 Blood Pressure Mean 98 08/16/25 18:11 Blood Pressure Position Supine 08/16/25 18:11 Pulse Oximetry 95 08/16/25 18:11 Oxygen Delivery Method Room Air 08/16/25 18:11 Vital Signs Temperature 97.5 F L 08/16/25 18:11 Pulse Rate 84 08/16/25 18:11 Respiratory Rate 16 08/16/25 18:11 Blood Pressure 154/70 H 08/16/25 18:11 Pulse Oximetry 95 08/16/25 18:11 Oxygen Delivery Method Room Air 08/16/25 18:11 Temperature 97.5 F L 08/16/25 18:11 Pulse Rate 84 08/16/25 18:11 Respiratory Rate 16 08/16/25 18:11 Blood Pressure 154/70 H 08/16/25 18:11 Pulse Oximetry 95 08/16/25 18:11 Oxygen Delivery Method Room Air 08/16/25 18:11 Medications Administered Medications: Discontinued Medications Generic Name Dose Route Start Last Admin Trade Name Robb PRN Reason Stop Dose Admin Fentanyl 50 mcg 08/16/25 18:13 08/16/25 18:24 Fentanyl 100 Mcg/2 Ml Inj IVP 08/16/25 18:14 50 mcg ONCE ONE Administration Hydromorphone HCl 0.5 mg 08/16/25 19:17 08/16/25 19:26 Hydromorphone 0.5 Mg/0.5 Ml Inj IVP 08/16/25 19:18 0.5 mg ONCE ONE Administration Ondansetron HCl 4 mg 08/16/25 18:13 08/16/25 18:24 Ondansetron 2 Mg/Ml Inj IVP 08/16/25 18:14 4 mg ONCE ONE Administration Medical Decision Making Lab Data Labs: Lab Results 08/16/25 Range/Units 19:20 WBC 8.89 (4.50-11.00) K/uL RBC 3.99 L (4.00-5.20) m/uL Hgb 12.4 (12.0-16.0) gm/dL Hct 39.4 (33.0-51.0) % MCV 99 (80-100) fL MCH 31 (26-34) pg MCHC 32 (32-36) gm/dL RDW Coeff of Norbert 13.4 (11.5-15.5) % Plt Count 207 (140-440) K/uL Neut % (Auto) 75.9 H (42.0-72.0) % Lymph % (Auto) 13.5 L (20-44) % [place] % (Auto) 7.4 (0.0-11.0) % Eos % (Auto) 1.5 (0.0-7.0) % Baso % (Auto) 0.6 (0.0-3.0) % Neut # (Auto) 6.70 (1.7-7.0) K/uL Lymph # (Auto) 1.20 (0.90-2.90) K/uL [place] # (Auto) 0.70 (0.00-0.90) K/UL Eos # (Auto) 0.13 (0.00-0.50) K/uL Baso # (Auto) 0.05 (0.00-0.30) K/uL Abs Immat Gran (auto) 0.10 (0.00-0.30) K/uL Imm/Tot Granulo (auto) 1.1 % INR 0.91 (0.91-1.10) Sodium 140 (135-149) mmol/L Potassium 4.1 (3.6-5.1) mmol/L Chloride 100 (96-114) mmol/L Carbon Dioxide 29 (20-32) mmol/L Anion Gap 11 (7-15) mEq/L BUN 37 H (7-30) mg/dL Creatinine 0.9 (0.5-1.5) mg/dL Estimated Creat Clear 29.99 Estimated GFR 63 ml/min Glucose 126 H (60-115) mg/dL Calcium 9.4 (8.4-10.6) mg/dL Magnesium 2.1 (1.5-2.6) mg/dL Total Bilirubin 0.3 (0.1-1.5) mg/dL AST 30 (12-35) U/L ALT 28 (4-35) U/L Alkaline Phosphatase 81 (40-150) U/L Total Protein 7.4 (6.0-8.3) g/dL Albumin 4.4 (3.3-5.0) g/dL Discharge Plan Discharge Clinical Impression: Closed displaced fracture of left femoral neck Patient Disposition: Admitted As Inpatient Condition: Unchanged
--- NOTE | 2025-08-16 19:17 | CRLHL7_ITS ---
For Patients: As a result of the Century Cures Act, medical imaging exams and procedure reports are released immediately into your electronic medical record. You may view this report before your referring provider. If you have questions, please contact your health care provider. INDICATION: Fall, possible femoral neck fracture TECHNIQUE: CT left hip without contrast. COMPARISON: Same day pelvis and left hip radiographs. FINDINGS: There is an acute, comminuted, impacted and moderately displaced fracture of the left subcapital femoral neck with mild varus alignment. The hips, sacroiliac joints, and pubic symphysis are congruent with ieue-di-bansihxt degenerative changes. There is diffuse osseous demineralization. Partially imaged degenerative disc disease and facet arthropathy within the lower lumbar spine. Scattered vascular calcifications. IMPRESSION: Acute, comminuted, impacted and displaced left subcapital femoral neck fracture. Please note that all CT scans at this facility use dose modulation, iterative reconstruction, and/or weight-based dosing when appropriate to reduce radiation dose to as low as reasonably achievable. Dictated by Apolonia Bui MD @ 08/16/2025 8:03:34 PM (Electronically Signed)
[2025-08-16 19:35] LABS: Hematocrit* 39.4 % (33.0-51.0); Hemoglobin* 12.4 gm/dL (12.0-16.0); Immature Granulocytes Abs Auto 0.10 K/uL (0.00-0.30); Immature Granulocytes Pct Auto 1.1 %; Lymphocytes Absolute Auto 1.20 K/uL (0.90-2.90); Mean Corpuscular HGB Conc 32 gm/dL (32-36); Mean Corpuscular Hemoglobin 31 pg (26-34); Mean Corpuscular Volume 99 fL (80-100); RDW Coefficient of Variation % 13.4 % (11.5-15.5); Red Blood Count* 3.99 m/uL (4.00-5.20); White Blood Count* 8.89 K/uL (4.50-11.00)
[2025-08-16 19:40] LABS: Slide Review Reflex No
[2025-08-16 19:49] LABS: Albumin* 4.4 g/dL (3.3-5.0); Chloride* 100 mmol/L (96-114); Potassium* 4.1 mmol/L (3.6-5.1); Sodium* 140 mmol/L (135-149)
[2025-08-16 19:52] LABS: Alanine Aminotransferase* 28 U/L (4-35); Alkaline Phosphatase* 81 U/L (40-150); Anion Gap 11 mEq/L (7-15); Aspartate Amino Transferase* 30 U/L (12-35); Bilirubin Total* 0.3 mg/dL (0.1-1.5); Blood Urea Nitrogen* 37 mg/dL (7-30); Calcium* 9.4 mg/dL (8.4-10.6); Carbon Dioxide* 29 mmol/L (20-32); Creatinine* 0.9 mg/dL (0.5-1.5); Est. Creatinine Clearance* 29.99; Estimated Glomerular Filt Rate 63 ml/min; Glucose* 126 mg/dL (60-115); Total Protein* 7.4 g/dL (6.0-8.3)
[2025-08-16 19:53] LABS: INR 0.91 (0.91-1.10); Prothrombin Time 13.1 Seconds
--- NOTE | 2025-08-16 21:19 | P.IMHP_ITS ---
Assessment and Plan Assessment and plan (1) Closed displaced fracture of left femoral neck: Problem comment: Consult orthopedic surgery. Pain management. Plan surgery August 17 a.m.. Status: Acute (2) Osteoporosis: Problem comment: Previously treated with Reclast and Fosamax. Status: Acute (3) Dementia: Problem comment: At fairly high risk for hospital delirium. Apparently on aripiprazole for dementia associated agitation and anxiety Status: Acute (4) Anxiety: Status: Chronic (5) Chronic constipation: Problem comment: with rectal evacuation disorder. Aggressive management postop with laxatives Status: Chronic (6) Discharge planning issues: Problem comment: Likely will need [facility] facility for rehab after recovery from hip fracture surgery Status: Acute Plan 85-year-old female with dementia and osteoporosis admitted for left femoral neck fracture. Planned for surgery in the morning. At risk for postoperative complications related to dementia and delirium. Plan of care discussed with the patient her and son. They are in agreement with this plan. Total Time Spent Total Time Spent: Total time spent is 65 minutes in reviewing outside records, coordination of care and discussing with family ongoing management of hip fracture in the context of dementia Hospitalist- H&P: HPI History of Present Illness Date Seen: 08/16/25 Chief complaint: Fell/ Left hip Pain Narrative: Ember Lynch is a 85 year old female with dementia and osteoporosis admitted to the hospital after a fall at home with injury to her left hip. Patient had spent the day with family in [place]. She had just gotten home when she lost her balance and fell injuring her left hip. She denies head injury or loss of consciousness. She is here with her . She reports she has otherwise been feeling well and is not aware of any other injuries. Prior to her fall she was ambulating independently without assistive device. Her notes that she has had occasional problems with falling in the past year or so. As recently as a couple years ago they would walk around the entire [facility] without difficulty. She has had previous surgeries including breast cancer surgery and for Caesarean sections. There have been no problems with anesthesia, bleeding or clotting problems. Review of Systems Narrative: According to her and her she has been generally doing well recently. Medical Decision Making Medical Decision Making Has patient completed a Health Care Directive: Yes [facility] Medical History (Updated 08/16/25 @ 21:34 by Barrington Taylor MD) Discharge planning issues ?Z75.8 - Other problems related to medical facilities and other health care (ICD-10) Injury of left shoulder ?S49.92XA - Unspecified injury of left shoulder and upper arm, initial encounter (ICD-10) Osteoporosis ?M81.0 - Age-related osteoporosis without current pathological fracture (ICD- 10) Dementia ?F03.90 - Unspecified dementia, unspecified severity, without behavioral disturbance, psychotic disturbance, mood disturbance, and anxiety (ICD-10) Hyperlipidemia ?E78.5 - Hyperlipidemia, unspecified (ICD-10) Allergic rhinitis ?J30.9 - Allergic rhinitis, unspecified (ICD-10) Sensorineural hearing loss ?H90.5 - Unspecified sensorineural hearing loss (ICD-10) Varicose veins of both lower extremities ?I83.93 - Asymptomatic varicose veins of bilateral lower extremities (ICD-10) Anxiety ?F41.9 - Anxiety disorder, unspecified (ICD-10) Hx of non anemic vitamin B12 deficiency ?Z86.39 - Personal history of other endocrine, nutritional and metabolic disease (ICD-10) Cervical kyphosis ?M40.202 - Unspecified kyphosis, cervical region (ICD-10) Cervical compression fracture ?S12.9XXA - Fracture of neck, unspecified, initial encounter (ICD-10) Breast cancer, right (2008) ?C50.911 - Malignant neoplasm of unspecified site of right female breast (ICD-10) Osteoporosis, 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 - Age-related osteoporosis without current pathological fracture (ICD- 10) Chronic constipation ?K59.09 - Other constipation (ICD-10) Onychomycosis ?B35.1 - Tinea unguium (ICD-10) PVD (peripheral vascular disease) ?I73.9 - Peripheral vascular disease, unspecified (ICD-10) Surgical History History of section ?Z98.891 - History of uterine scar from previous surgery (ICD-10) History of arthroscopy of shoulder (2016) ?Z98.890 - Other specified postprocedural states (ICD-10) History of lumpectomy of right breast (2008) ?Z98.890 - Other specified postprocedural states (ICD-10) Family History Mother Depression Anxiety Glaucoma CHF (congestive heart failure) Father Heart disease Sister Glaucoma Macular degeneration Paternal Grandmother Myocardial infarction Social History (Updated 08/16/25 @ 21:22 by Barrington Taylor MD) Narrative: She lives with her in [place]. They moved here from [facility] to be closer to family. Her Sean and their 2 sons are listed as healthcare power of estate attorney. Code status is full. She does not smoke. She does not drink alcohol. What is your current living situation?: I presently have a place to live Problems where you live: no known problems In the past 12 months, utilities in danger of being shut off: no In past 12 months, lack of transportation kept you from medical appts, meetings, work, or getting things needed for daily living: no In the past 12 mos, have been you worried that your food would run out before you had money to buy more?: never true In the past 12 mos, the food you bought just didn't last and you didn't have money to buy more?: never true Highest level of school completed/degree received: Associate degree: academic program Smoking Status: Never smoker Do you use any of these nicotine containing products: None Second hand tobacco smoke exposure: No How often do you have a drink containing alcohol: monthly or less Alcohol type: wine How many standard drinks containing alcohol do you have on a typical day: 1 or 2 How often do you have six or more drinks on one occasion: Never AUDIT-C Alcohol total score: 1 Non-prescribed substance use: denies use How often does anyone, including family, friends and others, physically hurt you : never How often does anyone, including family, friends and others, insult or talk down to you: never How often does anyone, including family, friends and others, threaten you with harm: never How often does anyone, including family, friends and others, scream or curse at you: never service: No Meds Home Medications and Allergies Home Medications ?Medication ?Instructions ?Recorded ?Confirmed ?Type fluticasone propionate 50 1 spray intranasal BID 11/0707/31/25 History mcg/actuation nasal spray,suspension meclizine 25 mg tablet 25 mg PO QID PRN 11/14/24 History aripiprazole 5 mg tablet 10 mg PO DAILY 01/23/2507/21 History quetiapine 25 mg tablet 50 mg PO 01/23/25 07/31/25 H istory alendronate 70 mg tablet (Fosamax) 70 mg PO QWEEK #4 t abs 06/19/25 07/31/25 Rx Home Medication Comments: Patient and her are unsure of her current medications. She probably is only taking aripiprazole and probably not taking alendronate, meclizine or quetiapine. Probably uses Flonase p.r.n. Allergies Allergy/AdvReac Type Severity Reaction Status Date / Time pseudoephedrine AdvReac Intermediate Hypertensio Verified 07/31/25 09:26 n amoxicillin AdvReac Mild Diarrhea Verified 07/31/25 09:26 erythromycin base AdvReac Mild Gastrointestinal Verified 07/31/25 09:26 Upset ibuprofen AdvReac Mild Palpitation Verified 07/31/25 09:26 s risedronate sodium (From AdvReac Mild Unknown Verified 07/31/25 09:26 Actonel) levofloxacin AdvReac Unknown Tendon Verified 07/31/25 09:26 Issues Exam Narrative: Exam Narrative: She is alert and appears moderately anxious. With her anxiety she is talking quite a bit but also quite fluently. Head is without apparent trauma. Eyes normal. Oropharynx with dry mucous membranes. No facial asymmetry. Neck is supple without mass or adenopathy. Respirations are clear to auscultation. Cardiovascular: S1, S2, 1/6 systolic ejection murmur. Regular rate and rhythm. Abdomen is soft. Bowel sounds are active. There is no tenderness or mass. Left hip with some apparent swelling but no obvious trauma. She has diminished but intact pedal pulses bilaterally. Feet are somewhat cool to touch. There is no significant edema. She moves both feet and ankles well. Const: Vital Signs, click to edit/add: Vital Signs - 24 hr 08/16/25 18:11 08/16/25 18:15 08/16/25 18:26 Temperature 97.5 F L Pulse Rate [Left P ulse Oximeter] Pulse Rate [Pulse Oximeter] 84 88 Respiratory Rate 16 18 20 Blood Pressure [Le ft Arm] Blood Pressure [Le ft Upper Arm] 154/70 H 133/88 Pulse Oximetry 95 97 96 Oxygen Delivery Me thod Room Air 08/16/25 19:16 08/16/25 19:17 08/16/25 19:20 Temperature Pulse Rate [Left P ulse Oximeter] Pulse Rate [Pulse Oximeter] Respiratory Rate 23 11 L 24 Blood Pressure [Le ft Arm] Blood Pressure [Le ft Upper Arm] Pulse Oximetry 98 96 Oxygen Delivery Me thod 08/16/25 19:30 08/16/25 19:39 08/16/25 19:40 Temperature Pulse Rate [Left P ulse Oximeter] Pulse Rate [Pulse Oximeter] 88 Respiratory Rate 18 18 14 Blood Pressure [Le ft Arm] Blood Pressure [Le ft Upper Arm] 164/80 H Pulse Oximetry 97 92 91 Oxygen Delivery Me thod 08/16/25 19:41 08/16/25 19:45 08/16/25 19:47 Temperature Pulse Rate [Left P ulse Oximeter] Pulse Rate [Pulse Oximeter] 86 Respiratory Rate 17 20 21 Blood Pressure [Le ft Arm] Blood Pressure [Le ft Upper Arm] 155/86 H Pulse Oximetry 98 95 Oxygen Delivery Me thod 08/16/25 19:50 08/16/25 20:00 08/16/25 20:00 Temperature Pulse Rate [Left P ulse Oximeter] Pulse Rate [Pulse Oximeter] 80 Respiratory Rate 15 18 13 Blood Pressure [Le ft Arm] Blood Pressure [Le ft Upper Arm] 128/78 Pulse Oximetry 94 96 93 Oxygen Delivery Me thod 08/16/25 20:10 08/16/25 20:20 08/16/25 20:47 Temperature 97.2 F L Pulse Rate [Left P ulse Oximeter] 91 Pulse Rate [Pulse Oximeter] Respiratory Rate 18 19 22 Blood Pressure [Le ft Arm] 186/88 H Blood Pressure [Le ft Upper Arm] Pulse Oximetry 92 92 Oxygen Delivery Me thod Room Air Documenting provider has reviewed patient's vital signs: yes Hospitalist - H&P: Result Labs Labs: Short CBC 08/16/25 Range/Units 19:20 WBC 8.89 (4.50-11.00) K/uL Hgb 12.4 (12.0-16.0) gm/dL Hct 39.4 (33.0-51.0) % Plt Count 207 (140-440) K/uL BMP 08/16/25 19:20 Sodium 140 Potassium 4.1 Chloride 100 Carbon Dioxide 29 BUN 37 H Creatinine 0.9 Glucose 126 H Calcium 9.4 Liver Function 08/16/25 Range/Units 19:20 Total Bilirubin 0.3 (0.1-1.5) mg/dL AST 30 (12-35) U/L ALT 28 (4-35) U/L Alkaline Phosphatase 81 (40-150) U/L Albumin 4.4 (3.3-5.0) g/dL ECG Attestation: I personally reviewed and interpreted this ECG as follows: (Normal sinus rhythm with a rate of 79. Nonspecific ST-T changes in lead 1 and aVL.) ECG interpretation date: 08/16/[address] hip: Radiologist's impression: INDICATION: Fall, possible femoral neck fracture TECHNIQUE: CT left hip without contrast. COMPARISON: Same day pelvis and left hip radiographs. FINDINGS: There is an acute, comminuted, impacted and moderately displaced fracture of the left subcapital femoral neck with mild varus alignment. The hips, sacroiliac joints, and pubic symphysis are congruent with [id number] degenerative changes. There is diffuse osseous demineralization. Partially imaged degenerative disc disease and facet arthropathy within the lower lumbar spine. Scattered vascular calcifications. IMPRESSION: Acute, comminuted, impacted and displaced left subcapital femoral neck fracture.
--- NOTE | 2025-08-16 21:28 | CRLHL7_ITS ---
For Patients: As a result of the Century Cures Act, medical imaging exams and procedure reports are released immediately into your electronic medical record. You may view this report before your referring provider. If you have questions, please contact your health care provider. Indication: Fall Technique: Chest 1 view. Comparison: CT chest abdomen and pelvis with contrast 04/03/2024. Findings/Impression: Cardiovascular and mediastinum: Heart size is normal. Multiple calcified mediastinal and right hilar lymph nodes are present. Lungs and pleural space: Lungs are clear. No pleural effusion or pneumothorax. Bones and soft tissues: No acute osseous abnormality. Unchanged chronic right posterolateral 6th rib fracture. Surgical clips along the right chest wall. Dictated by Apolonia Biu MD @ 08/16/2025 10:01:06 PM (Electronically Signed)
[2025-08-16] MEDS: LACTATED RINGERS 1000 ML 1,000 ML 500 ML IV (21:30)
[2025-08-16] MEDS: MORPHINE 4 MG/ML INJ 2 MG IVP ×2 (21:37→22:43)
--- NOTE | 2025-08-16 23:47 | PC.NURSE ---
End of Shift Note 253 Patient was cooperative with cares. Patient seems to demonstrate pain through distress. Hx. of dementia. Patient is not a reliable historian. Medical history provided by Sean. Afebrile. Anand in place. Patient seems to be able to uses the call light well. Immobile due to left hip fracture. Limb (right) restriction band in place. Call light within reach.
[2025-08-16] MEDS: LACTATED RINGERS 1000 ML 1,000 ML 75 ML IV (23:49)
[2025-08-17] VITALS (23 sets, daily range): BP systolic 118–173; BP diastolic 54–86; PULSE 52–86; RESP 12–18; TEMP 35.7–36.9; O2SAT 90–99
[2025-08-17] MEDS: MELATONIN 3 MG TABLET PO (00:22)
[2025-08-17] MEDS: ACETAMINOPHEN 325 MG TABLET 650 MG PO (00:22)
--- NOTE | 2025-08-17 00:52 | PC.NURSE ---
Education given by typewriter assembler and DULCE Garcia regarding pain management to Pt. Pt refused PRN Morphine after reporting excruciating pain that remains constant. Pt became teary eyed and stated I do not take drugs like this at home. Pt continues to appear anxious and upset. Pt agreed to PRN Tylenol.
--- NOTE | 2025-08-17 07:02 | PC.NURSE ---
End of shift [id number]: Pt oriented to person, place, and time. Cooperative with cares. Occasional forgetfulness and repetitiveness of statements. Hx of dementia. Pt demonstrates pain through distress, promotion writer utilized PRN Tylenol. Pt reported relief and refused Morphine. Anand in place, patent, and draining. Bedrest due to left hip fracture. Restriction band in place. Call light within reach. Sean at beside this morning, awaiting sx. Sean able to provide medical Hx.
--- NOTE | 2025-08-17 07:22 | PM.ORCN ---
History of Present Illness HPI Date Seen: 08/17/25 Requesting physician: Barrington Taylor Chief complaint: Fell/ Left hip Pain Narrative: Conchis the 5-year-old female with dementia and osteoporosis who presented to the emergency department yesterday evening after sustaining a ground level fall in her home. Following the fall she developed left hip pain was unable to bear weight. She was subsequent transferred to the emergency department by EMS where x-rays revealed a displaced femoral neck fracture. She denies any other injuries. She had no events overnight, and currently her pain is well controlled. Prior to this injury she lived independently with her and ambulated without the use of assistive devices. She she has no history of any bleeding disorders and is not in any anticoagulants. [facility] Medical History (Updated 08/16/25 @ 21:34 by Barrington Taylor MD) Discharge planning issues ?Z75.8 - Other problems related to medical facilities and other health care (ICD-10) Injury of left shoulder ?S49.92XA - Unspecified injury of left shoulder and upper arm, initial encounter (ICD-10) Osteoporosis ?M81.0 - Age-related osteoporosis without current pathological fracture (ICD-10) Dementia ?F03.90 - Unspecified dementia, unspecified severity, without behavioral disturbance, psychotic disturbance, mood disturbance, and anxiety (ICD-10) Hyperlipidemia ?E78.5 - Hyperlipidemia, unspecified (ICD-10) Allergic rhinitis ?J30.9 - Allergic rhinitis, unspecified (ICD-10) Sensorineural hearing loss ?H90.5 - Unspecified sensorineural hearing loss (ICD-10) Varicose veins of both lower extremities ?I83.93 - Asymptomatic varicose veins of bilateral lower extremities (ICD-10) Anxiety ?F41.9 - Anxiety disorder, unspecified (ICD-10) Hx of non anemic vitamin B12 deficiency ?Z86.39 - Personal history of other endocrine, nutritional and metabolic disease (ICD-10) Cervical kyphosis ?M40.202 - Unspecified kyphosis, cervical region (ICD-10) Cervical compression fracture ?S12.9XXA - Fracture of neck, unspecified, initial encounter (ICD-10) Breast cancer, right (2008) ?C50.911 - Malignant neoplasm of unspecified site of right female breast (ICD-10) Osteoporosis, 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 - Age-related osteoporosis without current pathological fracture (ICD-10) Chronic constipation ?K59.09 - Other constipation (ICD-10) Onychomycosis ?B35.1 - Tinea unguium (ICD-10) PVD (peripheral vascular disease) ?I73.9 - Peripheral vascular disease, unspecified (ICD-10) Surgical History History of section ?Z98.891 - History of uterine scar from previous surgery (ICD-10) History of arthroscopy of shoulder (2017) ?Z98.890 - Other specified postprocedural states (ICD-10) History of lumpectomy of right breast (2008) ?Z98.890 - Other specified postprocedural states (ICD-10) Family History Mother Depression Anxiety Glaucoma CHF (congestive heart failure) Father Heart disease Sister Glaucoma Macular degeneration Paternal Grandmother Myocardial infarction Social History (Updated 08/16/25 @ 21:22 by Barrington Taylor MD) Narrative: She lives with her in [place]. They moved here from [facility] to be closer to family. Her Sean and their 2 sons are listed as healthcare power of compliance attorney. Code status is full. She does not smoke. She does not drink alcohol. What is your current living situation?: I presently have a place to live Problems where you live: no known problems In the past 12 months, utilities in danger of being shut off: no In past 12 months, lack of transportation kept you from medical appts, meetings, work, or getting things needed for daily living: no In the past 12 mos, have been you worried that your food would run out before you had money to buy more?: never true In the past 12 mos, the food you bought just didn't last and you didn't have money to buy more?: never true Highest level of school completed/degree received: Associate degree: academic program Smoking Status: Never smoker Do you use any of these nicotine containing products: None Second hand tobacco smoke exposure: No How often do you have a drink containing alcohol: monthly or less Alcohol type: wine How many standard drinks containing alcohol do you have on a typical day: 1 or 2 How often do you have six or more drinks on one occasion: Never AUDIT-C Alcohol total score: 1 Non-prescribed substance use: denies use How often does anyone, including family, friends and others, physically hurt you: never How often does anyone, including family, friends and others, insult or talk down to you: never How often does anyone, including family, friends and others, threaten you with harm: never How often does anyone, including family, friends and others, scream or curse at you: never service: No Meds Home Medications and Allergies Home Medications ?Medication ?Instructions ?Recorded ?Confirmed ?Type fluticasone propionate 50 1 spray intranasal BID 11/07/23 07/31/25 History mcg/actuation nasal spray,suspension meclizine 25 mg tablet 25 mg PO QID PRN 11/14/24 07/31/25 History aripiprazole 5 mg tablet 10 mg PO DAILY 01/23/25 07/31/25 History quetiapine 25 mg tablet 50 mg PO 01/23/25 07/31/25 History alendronate 70 mg tablet (Fosamax) 70 mg PO QWEEK #4 tabs 06/19/25 07/31/25 Rx Allergies Allergy/AdvReac Type Severity Reaction Status Date / Time pseudoephedrine AdvReac Intermediate Hypertensio Verified 07/31/25 09:26 n amoxicillin AdvReac Mild Diarrhea Verified 07/31/25 09:26 erythromycin base AdvReac Mild Gastrointestinal Verified 07/31/25 09:26 Upset ibuprofen AdvReac Mild Palpitation Verified 07/31/25 09:26 s risedronate sodium (From AdvReac Mild Unknown Verified 07/31/25 09:26 Actonel) levofloxacin AdvReac Unknown Tendon Verified 07/31/25 09:26 Issues Ortho Exam Narrative Exam Narrative: General: Alert and and no apparent distress. Musculoskeletal: Left lower extremity was examined. No obvious deformity. Hip pain is reproduced with log roll. Sensation was intact to light touch dorsal plantar aspects of the foot. EHL, tibialis anterior, gastrocnemius/soleus were intact. Foot was warm well perfused with 2+ DP pulse. Const Vital Signs, click to edit/add: Vital Signs - 24 hr 08/16/25 18:11 08/16/25 18:15 08/16/25 18:26 Temperature 97.5 F L Pulse Rate [Left Pulse Oximeter] Pulse Rate [Pulse Oximeter] 84 88 Respiratory Rate 16 18 20 Blood Pressure [Left Arm] Blood Pressure [Left Upper Arm] 154/70 H 133/88 Pulse Oximetry 95 97 96 Oxygen Delivery Method Room Air 08/16/25 19:16 08/16/25 19:17 08/16/25 19:20 Temperature Pulse Rate [Left Pulse Oximeter] Pulse Rate [Pulse Oximeter] Respiratory Rate 23 11 L 24 Blood Pressure [Left Arm] Blood Pressure [Left Upper Arm] Pulse Oximetry 98 96 Oxygen Delivery Method 08/16/25 19:30 08/16/25 19:39 08/16/25 19:40 Temperature Pulse Rate [Left Pulse Oximeter] Pulse Rate [Pulse Oximeter] 88 Respiratory Rate 18 18 14 Blood Pressure [Left Arm] Blood Pressure [Left Upper Arm] 164/80 H Pulse Oximetry 97 92 91 Oxygen Delivery Method 08/16/25 19:41 08/16/25 19:45 08/16/25 19:47 Temperature Pulse Rate [Left Pulse Oximeter] Pulse Rate [Pulse Oximeter] 86 Respiratory Rate 17 20 21 Blood Pressure [Left Arm] Blood Pressure [Left Upper Arm] 155/86 H Pulse Oximetry 98 95 Oxygen Delivery Method 08/16/25 19:50 08/16/25 20:00 08/16/25 20:00 Temperature Pulse Rate [Left Pulse Oximeter] Pulse Rate [Pulse Oximeter] 80 Respiratory Rate 15 18 13 Blood Pressure [Left Arm] Blood Pressure [Left Upper Arm] 128/78 Pulse Oximetry 94 96 93 Oxygen Delivery Method 08/16/25 20:10 08/16/25 20:20 08/16/25 20:47 Temperature 97.2 F L Pulse Rate [Left Pulse Oximeter] 91 Pulse Rate [Pulse Oximeter] Respiratory Rate 18 19 22 Blood Pressure [Left Arm] 186/88 H Blood Pressure [Left Upper Arm] Pulse Oximetry 92 92 Oxygen Delivery Method Room Air 08/17/25 00:09 08/17/25 02:25 Temperature 98.5 F 97.9 F Pulse Rate [Left Pulse Oximeter] 86 64 Pulse Rate [Pulse Oximeter] Respiratory Rate 18 18 Blood Pressure [Left Arm] 173/86 H 139/72 Blood Pressure [Left Upper Arm] Pulse Oximetry 96 94 Oxygen Delivery Method Room Air Room Air Results Labs Labs: Laboratory Results - last 48 hr 08/16/25 19:20 WBC 8.89 RBC 3.99 L Hgb 12.4 Hct 39.4 MCV 99 MCH 31 MCHC 32 RDW Coeff of Norbert 13.4 Plt Count 207 Neut % (Auto) 75.9 H Lymph % (Auto) 13.[address] [place] % (Auto) 7.4 Eos % (Auto) 1.5 Baso % (Auto) 0.6 Neut # (Auto) 6.70 Lymph # (Auto) 1.20 [place] # (Auto) 0.70 Eos # (Auto) 0.13 Baso # (Auto) 0.05 Abs Immat Gran (auto) 0.10 Imm/Tot Granulo (auto) 1.1 INR 0.91 Sodium 140 Potassium 4.1 Chloride 100 Carbon Dioxide 29 Anion Gap 11 BUN 37 H Creatinine 0.9 Estimated Creat Clear 29.99 Estimated GFR 63 Glucose 126 H Calcium 9.4 Magnesium 2.1 Total Bilirubin 0.3 AST 30 ALT 28 Alkaline Phosphatase 81 Total Protein 7.4 Albumin 4.4 Diagnostic results Additional Comments: X-rays of the left hip and pelvis and CT scan of the left hip were reviewed. These demonstrated a displaced subcapital left femoral neck fracture. Assessment and Plan Assessment and plan (1) Closed displaced fracture of left femoral neck: Problem comment: Consult orthopedic surgery. Pain management. Plan surgery August 17 a.m.. Status: Acute Total time spent: Total time spent is greater than 50% in coordination of care (as documented) at patient's floor/unit and/or counseling patient: (2) Osteoporosis: Problem comment: Previously treated with Reclast and Fosamax. Status: Acute Total time spent: Total time spent is greater than 50% in coordination of care (as documented) at patient's floor/unit and/or counseling patient: (3) Dementia: Problem comment: At fairly high risk for hospital delirium. Apparently on aripiprazole for dementia associated agitation and anxiety Status: Acute Total time spent: Total time spent is greater than 50% in coordination of care (as documented) at patient's floor/unit and/or counseling patient: (4) Anxiety: Status: Chronic Total time spent: Total time spent is greater than 50% in coordination of care (as documented) at patient's floor/unit and/or counseling patient: (5) Chronic constipation: Problem comment: with rectal evacuation disorder. Aggressive management postop with laxatives Status: Chronic Total time spent: Total time spent is greater than 50% in coordination of care (as documented) at patient's floor/unit and/or counseling patient: (6) Discharge planning issues: Problem comment: Likely will need halfway facility for rehab after recovery from hip fracture surgery Status: Acute Total time spent: Total time spent is greater than 50% in coordination of care (as documented) at patient's floor/unit and/or counseling patient: Plan Patient has a displaced left hip femoral neck fracture. Risks and benefits of operative treatment and alternatives to surgery were discussed with the patient and her . Recommendation was subsequently made for surgical intervention consisting of left hip hemiarthroplasty to allow for early mobilization and advancement of weight-bearing, decreased pain, and healing of the fracture. Risks of surgery to include, but not limited to, infection, neurovascular injury, hip dislocation, hardware loosening, deep vein thrombosis, pulmonary embolism, heart attack, stroke, and even were discussed with patient and her . All of their questions were answered. After discussion, they were in agreement with plan to proceed with surgery and informed consent was obtained. Patient has been admitted to the hospitalist for perioperative medical management. She has been medically optimized and cleared for the planned surgical procedure . She is to remain on bedrest with plan for surgery this morning. She has been NPO for anticipated surgery.
--- NOTE | 2025-08-17 07:29 | P.ORPRC_ITS ---
Procedure Note Date of procedure: 08/17/25 Procedure: PREOPERATIVE DIAGNOSIS: 1. Closed, displaced, left hip femoral neck fracture POSTOPERATIVE DIAGNOSIS: 1. Closed, displaced, left hip femoral neck fracture PROCEDURE: 1. Left hip cemented bipolar hemiarthroplasty SURGEON: Ed Lord MD. PROCESSING ENGINEER: Kiko Braden P.A.-C. - A neurosurgical physician assistant was critical for this case to aid in patient positioning, tissue retraction, limb manipulation/positioning, and wound closure. ANESTHESIA: Spinal anesthetic IMPLANTS: DePuy Floriston femoral stem size 2 with standard offset; 8.5 mm stem centralizer; DePuy 28mm +1.5 femoral head; DePuy bipolar femoral head with 28 mm inner diameter and 46 mm outer diameter FINDINGS: Displaced femoral neck fracture EBL: 250 mL COMPLICATIONS: None evident INDICATIONS: The patient is a pleasant 85-year-old female who sustained a left hip injury after a ground level fall. Upon admission to the emergency department, the patient was found to have a displaced left hip femoral neck fracture. Treatment options were discussed and recommendation was made for surgical intervention consisting of bipolar left hip hemiarthroplasty. Prior to surgery, the risks and benefits of treatment were discussed with patient, all questions answered, and informed consent was obtained. DESCRIPTION OF PROCEDURE: Prior to surgery the operative hip was marked. The patient was brought to the operating room and spinal anesthesia was administered. After induction of anesthesia was undertaken, tranexamic acid and 1g IV Ancef were administered. Patient was then rotated into the right lateral decubitus position. An axillary roll was placed and all bony prominences were well padded. A surgical time-out was performed confirming patient identity, surgical site, and surgical procedure. The left hip and lower extremity were prepped and draped in the appropriate sterile fashion. A posterior lateral incision was made centered over the posterior aspect of the greater trochanter. Incision was carried through subcutaneous tissues. The IT band and gluteus kristel fascia were identified. IT band and gluteus kristel fascia were then incised in line with the incision and Charnley retractor was placed. Gluteus medius was retracted anteriorly. Sciatic nerve was identified and protected throughout the course the procedure. Piriformis and short external rotators were identified. Piriformis was tagged with a #1 Ethibond stitch and was released off its bony insertion. The short external rotators and capsule were also released off the femur, and an L-shaped capsulotomy was performed. These tissues were also tagged with a #1 Ethibond stitch. Once the capsulotomy was completed, a femoral neck osteotomy was then performed approximately 1 cm proximal to the lesser trochanter. The femoral head was then removed with a corkscrew device and all bony fragments were removed from the acetabulum. Femoral head measured 46 mm in diameter. We then turned our attention back to the proximal femur. A cookCoreTrace cutter osteotome was used to enter the proximal femur. A canal finder was then used to identify the center of the canal. A lateralizing Reamer was used, and the canal was reamed up to the appropriate size. We then broached sequentially to a size 2 broach, and trialed with the 28 mm +1.5 femoral head and 46 mm outer diameter head. Excellent stability with full range of motion, and good soft tissue tension was confirmed. The hip was then dislocated, and the trial components were removed. The distal cement restrictor was then placed. The canal was copiously irrigated and dried. Cement was then pressurized into the canal. A size 2 standard offset Floriston stem was then inserted into the canal in the appropriate anteversion. We removed excess cement and allowed the cement time to cure. Once the cement had cured, we dried the trunnion and impacted the formal 28 mm +1.5 femoral head and 46 mm bipolar femoral head. The hip was then reduced, and we checked stability 1 more time. With these components in place, we had appropriate soft tissue tension, good leg length, and excellent stability. The hip was then irrigated with copious amounts of normal saline. The piriformis, external rotators were repaired through bone tunnels into the greater trochanter using #2 FiberWire sutures. The posterior capsule was also closed with #2 FiberWire. The IT band was closed with #1 Ethibond [id number] interrupted sutures followed by running #1 Stratafix stitch. Subcutaneous tissues were closed with 2-0 Vicryl inverted interrupted stitches followed by subcuticular Stratafix and Monocryl stitches and Exofin surgical glue. Mepilex dressing was applied, and an abduction pillow was placed between the patient's legs. Patient was then rotated into the supine position and awoken from anesthesia. Patient was then transferred to the recovery room in stable condition. Postoperative AP pelvis and lateral hip x-rays revealed good position of the bipolar hip component and equal leg lengths. PLAN: 1. Patient will be readmitted to the hospitalist service for postoperative medical management. 2. Weight bearing: Weightbearing as tolerated 3. Posterior hip precautions to operative hip. Abduction pillow to remain in place while patient is in bed. 4. Postoperative antibiotics: Ancef x2 doses postoperatively per protocol 5. Pain control: Oral and IV pain medications. 6. PT/OT consults for ambulation assistance/mobility education 7. DVT prophylaxis: Continue mechanical SCDs while in the hospital. -aspirin 81 mg b.i.d. for 35 days. 8. Follow up in Orthopedic Clinic in 1-2 weeks
[2025-08-17] MEDS: TRANEXAMIC ACID 100 MG/ML INJ 1000 MG IV (08:25)
--- NOTE | 2025-08-17 08:25 | P.NB_ITS ---
Nerve Block Nerve Block Time Seen by Provider: 07:58 Date Seen: 08/17/25 Type of block requested by surgeon for post-operative analgesia: RYDER/LFCN Side: left Time out performed: Yes Verification of patient name: Yes Verification of date of : Yes Site marking: site marked Name of person performing procedure: Mukund Continuous monitoring Was continuous monitoring of O2 sat, B/P, surveillance system monitor, recorded every 15 minutes?: Yes Procedure Checklist: sterile prep, needles and gloves Ultrasound guided. Images saved: Yes Medications given in 5ml increments after negative aspiration: Ropivicaine %: 0.5 mL: 30 Needle gauge: 20 Precedex (mcg): 25 Patient tolerated procedure well: Yes Additional comments: Needle noted below psoas tendon needle noted adjacent to LFCN Block Charges Block Charge (with Pro Fee): Other Periph Nerve Block Use of Ultrasound Machine for Block: Yes- US Guidance/pain block
--- NOTE | 2025-08-17 08:25 | P.ANES_ITS ---
Anesthesia Charges Start Date/Time Anesthesia Start Date: 08/17/25 Anesthesia Start Time: 07:40 Stop Date/Time Anesthesia Stop Date: 08/17/25 Anesthesia Stop Time: 10:44 Summary Extremes of Age - Over 70 or under 1: MDA Coding CPT Codes CPT Codes: ANESTH SURGERY OF FEMUR - 04799 ([id number]) P2 - PATIENT W/MILD SYST DISEASE, QK - POLICE CRIME SCENE TECHNICIAN 2-4 CNCRNT ANES PROC, QX - FIRER LOCOMOTIVE SVC W/ MD MED DIRECTION Additional Codes: Summary - Extremes of Age - Over 70 or under 1: MDA ([id number])
--- NOTE | 2025-08-17 08:25 | W.ANESCHARGE ---
Anesthesia Charges Start Date/Time Anesthesia Start Date: 08/17/25 Anesthesia Start Time: 07:40 Stop Date/Time Anesthesia Stop Date: 08/17/25 Anesthesia Stop Time: 10:44 Summary Extremes of Age - Over 70 or under 1: MDA Coding CPT Codes CPT Codes: ANESTH SURGERY OF FEMUR - 54033 ([id number]) P2 - PATIENT W/MILD SYST DISEASE, QK - RELAY CHECKER 2-4 CNCRNT ANES PROC, QX - FOOD SPECIALIST SVC W/ MD MED DIRECTION Additional Codes: Summary - Extremes of Age - Over 70 or under 1: MDA ([id number])
[2025-08-17] MEDS: LACTATED RINGERS 1000 ML 1,000 ML 125 ML IV (08:35)
--- NOTE | 2025-08-17 10:12 | CRLHL7_ITS ---
For Patients: As a result of the Cures Act, medical imaging exams and procedure reports are released immediately into your electronic medical record. You may view this report before your referring provider. If you have questions, please contact your health care provider. Indication: Post op left hip hemiarthroplasty Technique: AP hip centered pelvis and lateral view left hip Findings/Impression: Hardware from a left bipolar hip arthroplasty is in satisfactory position. Bone alignment is normal. No sign of acute fracture. Postop changes are within normal limits. Dictated by Meet Benitez MD @ 08/20/2025 8:50:09 AM (Electronically Signed)
--- NOTE | 2025-08-17 10:57 | P.ANES_ITS ---
Anesthesia Charges Start Date/Time Anesthesia Start Date: 08/17/25 Anesthesia Start Time: 07:40 Stop Date/Time Anesthesia Stop Date: 08/17/25 Anesthesia Stop Time: 10:44 Summary Extremes of Age - Over 70 or under 1: RETAIL MANAGEMENT TRAINEE Coding CPT Codes CPT Codes: ANESTH SURGERY OF FEMUR - 54990 ([id number]) P2 - PATIENT W/MILD SYST DISEASE, QK - MERCHANDISE ASSOCIATE 2-4 CNCRNT ANES PROC Additional Codes: Summary - Extremes of Age - Over 70 or under 1: RETAIL MANAGEMENT TRAINEE ([id number])
--- NOTE | 2025-08-17 10:57 | W.ANESCHARGE ---
Anesthesia Charges Start Date/Time Anesthesia Start Date: 08/17/25 Anesthesia Start Time: 07:40 Stop Date/Time Anesthesia Stop Date: 08/17/25 Anesthesia Stop Time: 10:44 Summary Extremes of Age - Over 70 or under 1: PRODUCT SCIENTIST Coding CPT Codes CPT Codes: ANESTH SURGERY OF FEMUR - 39352 ([id number]) P2 - PATIENT W/MILD SYST DISEASE, QK - WIND TURBINE MECHANIC 2-4 CNCRNT ANES PROC Additional Codes: Summary - Extremes of Age - Over 70 or under 1: PRODUCT SCIENTIST ([id number])
[2025-08-17] MEDS: ONDANSETRON 2 MG/ML inj 4 MG IVP (12:18)
[2025-08-17] MEDS: LACTATED RINGERS 1000 ML 1,000 ML 75 ML IV (12:24)
[2025-08-17] MEDS: PROCHLORPERAZINE 5 MG/ML VIAL IV (13:23)
[2025-08-17] MEDS: CEFAZOLIN 1 GM in 0.9 % SODIUM CHLORIDE Mini-bag 100 ML IVPB ×2 (14:25→21:45)
--- NOTE | 2025-08-17 14:44 | P.IMPN_ITS ---
Assessment and Plan Assessment and plan (1) Closed displaced fracture of left femoral neck: Problem comment: S/p Left hip cemented bipolar hemiarthroplasty, 08/17/2025, Dr. Lord Postoperative recommendations per Orthopedic surgery as follows 1. Patient will be readmitted to the hospitalist service for postoperative medical management. 2. Weight bearing: Weightbearing as tolerated 3. Posterior hip precautions to operative hip. Abduction pillow to remain in place while patient is in bed. 4. Postoperative antibiotics: Ancef x2 doses postoperatively per protocol 5. Pain control: Oral and IV pain medications. 6. PT/OT consults for ambulation assistance/mobility education 7. DVT prophylaxis: Continue mechanical SCDs while in the hospital. -aspirin 81 mg b.i.d. for 35 days. 8. Follow up in Orthopedic Clinic in 1-2 weeks Nausea management with Zofran and Compazine as needed client services coordinator for discharge planning/placement needs, will plan for SNF Status: Acute (2) Osteoporosis: Problem comment: Previously treated with Reclast and Fosamax. Status: Acute (3) Dementia: Problem comment: At fairly high risk for hospital delirium. Apparently on aripiprazole for dementia associated agitation and anxiety -resume aripizazole and quetiapine postoperatively Status: Acute (4) Chronic constipation: Problem comment: with rectal evacuation disorder. Aggressive management postop with laxatives -scheduled MiraLax daily and senna b.i.d. Status: Chronic (5) Discharge planning issues: Problem comment: Likely will need assisted facility for rehab after recovery from hip fracture surgery. client services coordinator aware, will speak with patient's Status: Acute Plan Therapies over the weekend, SNF planning for Wednesday Total Time Spent Total Time Spent: Today I spent 55 minutes seeing the patient, reviewing Expanse and EPIC notes/diagnostics, discussing the care plan with our care time that includes social work, PT/OT, pharmacy, RT, assisted and documenting my impressions and plan in the medical record. Subjective Date Seen: 08/17/25 Interval history: Patient is seen postoperatively, s/p left total hip hemiarthroplasty, Dr. Lord. Reports pain is well managed currently. Has been quite nauseous though. No vomiting. Mild headache with mild dizziness postoperatively. Denies chest pain or shortness of breath. Vitally stable. Exam Narrative: Exam Narrative: PHYSICAL EXAM General: Pleasant, conversant, NAD HEENT: Normocephalic, atraumatic, sclera white, EOMI, oral mucosa moist Cardiovascular: RRR, S1S2. No pitting edema Pulmonary: CTA bilaterally without rhonchi, rales, expiratory wheezes. No dyspnea Neurological: Alert, answering questions appropriately, cranial nerves intact, no focal findings Extremities: No gross joint deformity or swelling. Postoperative dressing in place, dry. Neurovascularly intact Skin: Warm, dry. Const: Vital Signs, click to edit/add: Vital Signs - 24 hr 08/16/25 18:11 08/16/25 18:15 08/16/25 18:26 Temperature 97.5 F L Pulse Rate Pulse Rate [Left P ulse Oximeter] Pulse Rate [Pulse Oximeter] 84 88 Respiratory Rate 16 18 20 Blood Pressure Blood Pressure [Le ft Arm] Blood Pressure [Le ft Upper Arm] 154/70 H 133/88 Pulse Oximetry 95 97 [facility] 08/16/25 19:16 08/16/25 19:17 08/16/25 19:20 Temperature Pulse Rate Pulse Rate [Left P ulse Oximeter] Pulse Rate [Pulse Oximeter] Respiratory Rate 23 11 L 24 Blood Pressure Blood Pressure [Le ft Arm] Blood Pressure [Le ft Upper Arm] Pulse Oximetry 98 96 [facility] 08/16/25 19:30 08/16/25 19:39 08/16/25 19:40 Temperature Pulse Rate Pulse Rate [Left P ulse Oximeter] Pulse Rate [Pulse Oximeter] 88 Respiratory Rate 18 18 14 Blood Pressure Blood Pressure [Le ft Arm] Blood Pressure [Le ft Upper Arm] 164/80 H Pulse Oximetry 97 92 91 [facility] 08/16/25 19:41 08/16/25 19:45 08/16/25 19:47 Temperature Pulse Rate Pulse Rate [Left P ulse Oximeter] Pulse Rate [Pulse Oximeter] 86 Respiratory Rate 17 20 21 Blood Pressure Blood Pressure [Le ft Arm] Blood Pressure [Le ft Upper Arm] 155/86 H Pulse Oximetry 98 95 [facility] 08/16/25 19:50 08/16/25 20:00 08/16/25 20:00 Temperature Pulse Rate Pulse Rate [Left P ulse Oximeter] Pulse Rate [Pulse Oximeter] 80 Respiratory Rate 15 18 13 Blood Pressure Blood Pressure [Le ft Arm] Blood Pressure [Le ft Upper Arm] 128/78 Pulse Oximetry 94 96 93 Oxygen Delivery Me thod 08/16/25 20:10 08/16/25 20:20 08/16/25 20:47 Temperature 97.2 F L Pulse Rate Pulse Rate [Left P ulse Oximeter] 91 Pulse Rate [Pulse Oximeter] Respiratory Rate 18 19 22 Blood Pressure Blood Pressure [Le ft Arm] 186/88 H Blood Pressure [Le ft Upper Arm] Pulse Oximetry 92 92 Oxygen Delivery Me thod Room Air 08/17/25 00:09 08/17/25 02:25 08/17/25 10:41 Temperature 98.5 F 97.9 F 97.5 F L Pulse Rate 52 L Pulse Rate [Left P ulse Oximeter] 86 64 Pulse Rate [Pulse Oximeter] Respiratory Rate 18 18 18 Blood Pressure 149/66 H Blood Pressure [Le ft Arm] 173/86 H 139/72 Blood Pressure [Le ft Upper Arm] Pulse Oximetry 96 94 90 Oxygen Delivery Me thod Room Air Room Air Room Air 08/17/25 10:45 08/17/25 10:50 08/17/25 10:55 Temperature Pulse Rate 55 L 57 L 54 L Pulse Rate [Left P ulse Oximeter] Pulse Rate [Pulse Oximeter] Respiratory Rate 16 16 16 Blood Pressure 140/66 H 140/73 H 153/68 H Blood Pressure [Le ft Arm] Blood Pressure [Le ft Upper Arm] Pulse Oximetry 94 93 96 Oxygen Delivery Me thod 08/17/25 11:00 08/17/25 11:05 08/17/25 11:10 Temperature 97.7 F Pulse Rate 60 55 L 55 L Pulse Rate [Left P ulse Oximeter] Pulse Rate [Pulse Oximeter] Respiratory Rate 16 18 16 Blood Pressure 154/75 H 160/73 H 158/74 H Blood Pressure [Le ft Arm] Blood Pressure [Le ft Upper Arm] Pulse Oximetry 91 95 93 Oxygen Delivery Me thod Room Air Labs Labs: Laboratory Results - last 24 hr 08/16/25 19:20 WBC 8.89 RBC 3.99 L Hgb 12.4 Hct 39.4 MCV 99 MCH 31 MCHC 32 RDW Coeff of Norbert 13.4 Plt Count 207 Neut % (Auto) 75.9 H Lymph % (Auto) 13.5 L Ritchie % (Auto) 7.4 Eos % (Auto) 1.5 Baso % (Auto) 0.6 Neut # (Auto) 6.70 Lymph # (Auto) 1.20 Ritchie # (Auto) 0.70 Eos # (Auto) 0.13 Baso # (Auto) 0.05 Abs Immat Gran (auto) 0.10 Imm/Tot Granulo (auto) 1.1 INR 0.91 Sodium 140 Potassium 4.1 Chloride 100 Carbon Dioxide 29 Anion Gap 11 BUN 37 H Creatinine 0.9 Estimated Creat Clear 29.99 Estimated GFR 63 Glucose 126 H Calcium 9.4 Magnesium 2.1 Total Bilirubin 0.3 AST 30 ALT 28 Alkaline Phosphatase 81 Total Protein 7.4 Albumin 4.4
[2025-08-17] MEDS: ACETAMINOPHEN 500 MG TABLET 1000 MG PO ×2 (15:30→21:44)
--- NOTE | 2025-08-17 16:30 | PC.SOCIAL ---
Addendum entered by ARYAN Sams 08/17/25 16:45: Discharge planning: telecommunications linesworker spoke to pt's , Sean, this afternoon and he expressed interest in [facility] as their top choice for placement and then following that they would like [facility] as their second choice and [facility] as their third choice, but they are really hoping [facility] can take her. Pt does not have therapy notes in yet, so no referral has been sent. Social work to follow-up as needed. Original Note: Discharge planning: telecommunications linesworker attempted to meet with the pt today after surgery, but she was not arousable. It is anticipated by hospital staff that she will need short-term rehab after this hospital stay. Pt does have [place], so pt's spouse should be contacted for discharge planning. This health and social care teacher did leave a copy of [facility] facility list in the pt's room on her bedside stand for her and her spouse to review this weekend for options of where the pt would like to go for short-term rehab. Social work to follow-up as needed.
--- NOTE | 2025-08-17 18:56 | PC.NURSE ---
Pt a/o x3 with forgetfulness, pt is assist of 2 to commode. gonzalez intact and patent. pt returned from PACU 1128, no pain reported. Pt had nausea, prn meds given, pt reports nausea resolved. Pt had small meal, tolerated well. Pt sleeping comfortably in bed at this time, chest rise and fall noted.
[2025-08-17] MEDS: ASPIRIN 81 MG TAB.CHEW PO (21:44)
[2025-08-17] MEDS: SENNOSIDES 1 TAB TABLET 2 TAB PO (21:44)
[2025-08-17] MEDS: QUETIAPINE 25 MG TABLET 50 MG PO (21:45)
[2025-08-17] MEDS: SODIUM CHLORIDE 0.9 % (FLUSH) 10 ML SYRINGE 5 ML IVF (21:46)
--- NOTE | 2025-08-17 23:20 | PC.NURSE ---
End of Shift 253 Patient is cooperative and pleasant throughout shift. VSS. Afebrile. Dementia at baseline. Patient is not a reliable historian. Uses call light appropriately. Call light within range.
[2025-08-18] VITALS (7 sets, daily range): BP systolic 120–167; BP diastolic 55–74; PULSE 77–96; RESP 16–18; TEMP 36.2–37.2; O2SAT 92–96
[2025-08-18] MEDS: ACETAMINOPHEN 500 MG TABLET 1000 MG PO ×2 (03:47→21:37)
--- NOTE | 2025-08-18 06:52 | PC.NURSE ---
End of shift [id number]: Pt AxOx3, cooperative, and pleasant during shift. Dementia at baseline. IV SL, drinking adequate amount of fluids. Anand remains patent and draining adequate output. Pt reports cramping with positioning of the abductor pillow. Pt requested to remove for a short period. Garment Cutter replaced with pillows in between BLE. Pt reported relief. Pt requesting scheduled Tylenol only for pain management. CMS intact. Dressing remains CDI. Active ice applied. Using call light appropriately. Bed alarm in place, call light within reach.
[2025-08-18 07:19] LABS: Hematocrit* 31.5 % (33.0-51.0); Hemoglobin* 10.0 gm/dL (12.0-16.0); Mean Corpuscular HGB Conc 32 gm/dL (32-36); Mean Corpuscular Hemoglobin 31 pg (26-34); Mean Corpuscular Volume 98 fL (80-100); Red Blood Count* 3.22 m/uL (4.00-5.20); White Blood Count* 7.92 K/uL (4.50-11.00)
[2025-08-18 07:23] LABS: Slide Review Reflex No
[2025-08-18 07:31] LABS: Chloride* 101 mmol/L (96-114); Sodium* 136 mmol/L (135-149)
[2025-08-18 07:32] LABS: Potassium* 3.7 mmol/L (3.6-5.1)
[2025-08-18 07:35] LABS: Anion Gap 6 mEq/L (7-15); Blood Urea Nitrogen* 20 mg/dL (7-30); Calcium* 8.8 mg/dL (8.4-10.6); Carbon Dioxide* 29 mmol/L (20-32); Creatinine* 0.8 mg/dL (0.5-1.5); Est. Creatinine Clearance* 31.49; Estimated Glomerular Filt Rate 73 ml/min; Glucose* 98 mg/dL (60-115)
[2025-08-18] MEDS: ASPIRIN 81 MG TAB.CHEW PO ×2 (09:59→21:38)
[2025-08-18] MEDS: SODIUM CHLORIDE 0.9 % (FLUSH) 10 ML SYRINGE 5 ML IVF ×2 (10:00→21:39)
--- NOTE | 2025-08-18 11:23 | PM.IMPN1 ---
Assessment and Plan Assessment and plan (1) Closed displaced fracture of left femoral neck: Problem comment: S/p Left hip cemented bipolar hemiarthroplasty, 08/17/2025, Dr. Lord Postoperative recommendations per Orthopedic surgery as follows 1. Patient will be readmitted to the hospitalist service for postoperative medical management. 2. Weight bearing: Weightbearing as tolerated 3. Posterior hip precautions to operative hip. Abduction pillow to remain in place while patient is in bed. 4. Postoperative antibiotics: Ancef x2 doses postoperatively per protocol 5. Pain control: Oral and IV pain medications. 6. PT/OT consults for ambulation assistance/mobility education 7. DVT prophylaxis: Continue mechanical SCDs while in the hospital. -aspirin 81 mg b.i.d. for 35 days. 8. Follow up in Orthopedic Clinic in 1-2 weeks Nausea management with Zofran and Compazine as needed - resolved Continue with therapies vocational services specialist for discharge planning/placement needs, will plan for SNF Status: Acute (2) Osteoporosis: Problem comment: Previously treated with Reclast and Fosamax. Status: Acute (3) Dementia: Problem comment: At fairly high risk for hospital delirium. Apparently on aripiprazole for dementia associated agitation and anxiety -resume aripizazole and quetiapine postoperatively Status: Acute (4) Chronic constipation: Problem comment: with rectal evacuation disorder. Aggressive management postop with laxatives -scheduled MiraLax daily and senna b.i.d. Status: Chronic (5) Discharge planning issues: Problem comment: Likely will need senior care facility for rehab after recovery from hip fracture surgery. vocational services specialist aware, will speak with patient's Status: Acute Plan Therapies over the weekend, SNF planning for Wednesday Total Time Spent Total Time Spent: Today I spent 45 minutes seeing the patient, reviewing Expanse and EPIC notes/diagnostics, discussing the care plan with our care time that includes social work, PT/OT, pharmacy, RT, senior care and documenting my impressions and plan in the medical record. Subjective Date Seen: 08/18/25 Interval history: Patient is seen ambulating with walker with therapies this morning. Tells me her leg feels like ?jelly. ? Pain is adequately managed and tolerated at this time. No headache or dizziness. Denies chest pain or shortness of breath. Tolerating orals without further nausea, no vomiting. Hemoglobin postop 10, 12.4 preoperatively Working with therapies. Awaiting SNF placement. Exam Narrative: Exam Narrative: PHYSICAL EXAM General: Pleasant, conversant, NAD Cardiovascular: RRR Pulmonary:No dyspnea Neurological: Alert, answering questions appropriately Extremities: No gross joint deformity or swelling. Postoperative dressing in place, dry. Neurovascularly intact Skin: Warm, dry. Const: Vital Signs, click to edit/add: Vital Signs - 24 hr 08/17/25 11:26 08/17/25 11:39 08/17/25 12:04 Temperature 96.3 F L Pulse Rate 56 L 54 L 59 L Pulse Rate [Left P ulse Oximeter] Respiratory Rate 12 14 14 Blood Pressure 170/77 H 166/74 H 162/75 H Blood Pressure [Le ft Arm] Pulse Oximetry 91 90 92 Oxygen Delivery Me thod Room Air Room Air Room Air 08/17/25 12:19 08/17/25 12:30 08/17/25 13:00 Temperature 96.5 F L Pulse Rate 62 54 L 64 Pulse Rate [Left P ulse Oximeter] Respiratory Rate Blood Pressure 160/70 H 160/70 H 125/71 Blood Pressure [Le ft Arm] Pulse Oximetry 96 Oxygen Delivery Me thod Room Air Room Air Room Air 08/17/25 14:00 08/17/25 15:00 08/17/25 15:00 Temperature 96.6 F L Pulse Rate 55 L 75 Pulse Rate [Left P ulse Oximeter] Respiratory Rate 18 Blood Pressure 141/60 H 147/64 H Blood Pressure [Le ft Arm] Pulse Oximetry 96 Oxygen Delivery Me thod Room Air Room Air Room Air 08/17/25 16:11 08/17/25 17:11 08/17/25 18:30 Temperature 97.2 F L 97.4 F L Pulse Rate 73 80 72 Pulse Rate [Left P ulse Oximeter] Respiratory Rate 14 16 18 Blood Pressure 152/74 H 129/80 133/61 Blood Pressure [Le ft Arm] Pulse Oximetry 96 Oxygen Delivery Me thod Room Air Room Air Room Air 08/17/25 19:00 08/17/25 23:23 08/17/25 23:29 Temperature 97.4 F L 97.8 F Pulse Rate Pulse Rate [Left P ulse Oximeter] 68 Respiratory Rate 16 16 16 Blood Pressure Blood Pressure [Le ft Arm] 132/57 L 118/54 L Pulse Oximetry 95 99 99 Oxygen Delivery Me thod Room Air Room Air Room Air 08/18/25 03:42 Temperature 98.7 F Pulse Rate Pulse Rate [Left P ulse Oximeter] 80 Respiratory Rate 16 Blood Pressure Blood Pressure [Le ft Arm] 161/73 H Pulse Oximetry 95 Oxygen Delivery Me thod Room Air Labs Labs: Laboratory Results - last 24 hr 08/18/25 06:20 WBC 7.92 RBC 3.22 L Hgb 10.0 L Hct 31.5 L MCV 98 MCH 31 MCHC 32 Plt Count 152 Sodium 136 Potassium 3.7 Chloride 101 Carbon Dioxide 29 Anion Gap 6 L BUN 20 Creatinine 0.8 Estimated Creat Clear 31.49 Estimated GFR 73 Glucose 98 Calcium 8.8
--- NOTE | 2025-08-18 18:58 | PC.NURSE ---
Pt a/o x2, with occasional forgetfulness. pt reported no pain during shift but pt stated she felt discomfort when transferring. Nurse reapprached with prn and schudeuled pain med pt declined each time. Ice and repositions done to allivate pain, pt reported improvement. Anand cath removed, pt transfer of 1 w/ gait belt to bathroom. Pt in bed at this time
--- NOTE | 2025-08-18 20:48 | PM.ORPN ---
Subjective Subjective Date Seen: 08/18/25 Principal diagnosis: POD 1, left hip bipolar hemiarthroplasty posterior approach Interval history: Patient reports doing quite well, all things considering. No acute events over night or over the day. Patient states that she is not required much for pain control. Pain managed with scheduled and PRN medications (acetaminophen; as not taking narcotic thus far), ice. DVT prophylaxis: 81 mg aspirin by mouth twice daily for 35 days, SCDs, walking. Denies fevers, chills, aches, N/V, CP, SOB/RODRÍGUEZ, or lightheadedness. Reports history of left shoulder issues, which sounds to be rotator cuff arthropathy with prior surgeries. States that her left shoulder is not the strongest. Occasional pains. Ortho Exam Narrative Exam Narrative: -Patient appears comfortable in bed; no apparent acute distress -Alert and oriented times 3 -Operative hip mildly swollen; soft tissues supple; no obvious erythema. No significant ecchymosis. Warmth appropriate -Surgical dressing clean, dry, intact; no obvious drainage, no erythematous streaking peripheral to the bandage -Bilateral calves soft and supple; no significant swelling, edema, tenderness, erythema, discoloration, warmth, or palpable cords -2+ DP/PT pulses, pink warm digits with brisk cap refill; intact dermatomes and myotomes distally including the common peroneal, tibial, saphenous, and sural nerve distributions Left shoulder/upper extremity shows 5-/5 strength with triceps extension, 5-/5 strength with shoulder extension Const Vital Signs, click to edit/add: Vital Signs - 24 hr 08/17/25 23:23 08/17/25 23:29 08/18/25 03:42 Temperature 97.8 F 98.7 F Pulse Rate [Left Pulse Oximeter] 68 80 Respiratory Rate 16 16 16 Blood Pressure [Left Arm] 118/54 L 161/73 H Pulse Oximetry 99 99 95 Oxygen Delivery Method Room Air Room Air Room Air 08/18/25 07:00 08/18/25 07:00 08/18/25 07:00 Temperature 98.6 F Pulse Rate [Left Pulse Oximeter] 77 77 Respiratory Rate 16 16 16 Blood Pressure [Left Arm] 137/66 Pulse Oximetry 92 92 Oxygen Delivery Method Room Air Room Air 08/18/25 11:00 08/18/25 15:00 08/18/25 15:00 Temperature 97.2 F L 98.9 F Pulse Rate [Left Pulse Oximeter] 95 96 Respiratory Rate 16 16 Blood Pressure [Left Arm] 153/69 H 167/74 H Pulse Oximetry 96 96 96 Oxygen Delivery Method Room Air Room Air Room Air 08/18/25 15:00 08/18/25 19:00 Temperature 98.4 F Pulse Rate [Left Pulse Oximeter] 96 84 Respiratory Rate 16 18 Blood Pressure [Left Arm] 159/63 H Pulse Oximetry 92 Oxygen Delivery Method Room Air Assessment and Plan Assessment and plan (1) Closed displaced fracture of left femoral neck: Problem details: S/p Left hip cemented bipolar hemiarthroplasty, 08/17/2025, Dr. Lord Postoperative recommendations per Orthopedic surgery as follows 1. Patient will be readmitted to the hospitalist service for postoperative medical management. 2. Weight bearing: Weightbearing as tolerated 3. Posterior hip precautions to operative hip. Abduction pillow to remain in place while patient is in bed. 4. Postoperative antibiotics: Ancef x2 doses postoperatively per protocol 5. Pain control: Oral and IV pain medications. 6. PT/OT consults for ambulation assistance/mobility education 7. DVT prophylaxis: Continue mechanical SCDs while in the hospital. -aspirin 81 mg b.i.d. for 35 days. 8. Follow up in Orthopedic Clinic in 1-2 weeks Nausea management with Zofran and Compazine as needed - resolved Continue with therapies director of residential services for discharge planning/placement needs, will plan for SNF Status: Acute (2) Osteoporosis: Problem details: Previously treated with Reclast and Fosamax. Status: Acute (3) Dementia: Problem details: At fairly high risk for hospital delirium. 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 Aggressive management postop with laxatives -scheduled MiraLax daily and senna b.i.d. Status: Chronic (5) Discharge planning issues: Problem details: Likely will need residential facility for rehab after recovery from hip fracture surgery. director of residential services aware, will speak with patient's Status: Acute Plan - Complete 23 hour perioperative antibiotics. - PT/OT consult for education and assistance. - Social work consult for discharge planning - Prescribed analgesics as needed - avoid oral narcotics if possible; she seems to be doing well on acetaminophen alone - DVT prophylaxis: 81 mg aspirin by mouth twice daily, walking, and SCDs - Anticipation is for discharge to likely SNF
[2025-08-18] MEDS: QUETIAPINE 25 MG TABLET 50 MG PO (21:38)
[2025-08-18] MEDS: SENNOSIDES 1 TAB TABLET 2 TAB PO (21:38)
--- NOTE | 2025-08-18 22:55 | PC.NURSE ---
End of shift Note 253 Patient was pleasant and cooperative throughout shift. VSS. A&Ox3. Baseline dementia. Patient moves assist of 1 with walker and gait belt. Patient declines to use any other form of pain control except for her scheduled Tylenol. Abductor pillow in place. Surgical dressing dry and intact. Patient uses call light appropriately. Call light within reach.
[2025-08-19 04:04] VITALS: BP 141/64; PULSE 63; RESP 16; TEMP 36.9; O2SAT 94
[2025-08-19] MEDS: ACETAMINOPHEN 500 MG TABLET 1000 MG PO ×4 (04:05→21:59)
--- NOTE | 2025-08-19 06:07 | PC.NURSE ---
End of shift [id number]: Pt cooperative and pleasant during shift. Dementia at baseline. IV SL, drinking adequate amount of fluids. Pt requesting scheduled Tylenol only for pain management. CMS intact. Dressing remains CDI. Active ice applied. A1 GB W, continent of the bladder. Using call light appropriately. Bed alarm in place, call light within reach.
[2025-08-19 07:00] VITALS: BP 156/67; PULSE 96; RESP 18; TEMP 36.8; O2SAT 96
[2025-08-19 07:14] LABS: Hematocrit* 30.4 % (33.0-51.0); Hemoglobin* 9.7 gm/dL (12.0-16.0); Mean Corpuscular HGB Conc 32 gm/dL (32-36); Mean Corpuscular Hemoglobin 31 pg (26-34); Mean Corpuscular Volume 98 fL (80-100); Red Blood Count* 3.09 m/uL (4.00-5.20); White Blood Count* 7.84 K/uL (4.50-11.00)
[2025-08-19 07:15] LABS: Slide Review Reflex No
[2025-08-19 07:22] LABS: Chloride* 98 mmol/L (96-114); Potassium* 3.6 mmol/L (3.6-5.1); Sodium* 135 mmol/L (135-149)
[2025-08-19 07:25] LABS: Blood Urea Nitrogen* 21 mg/dL (7-30); Creatinine* 0.7 mg/dL (0.5-1.5); Est. Creatinine Clearance* 33.29; Estimated Glomerular Filt Rate 85 ml/min
[2025-08-19 07:26] LABS: Anion Gap 10 mEq/L (7-15); Calcium* 8.4 mg/dL (8.4-10.6); Carbon Dioxide* 27 mmol/L (20-32); Glucose* 106 mg/dL (60-115)
[2025-08-19] MEDS: SODIUM CHLORIDE 0.9 % (FLUSH) 10 ML SYRINGE 5 ML IVF ×2 (10:00→22:01)
[2025-08-19] MEDS: ASPIRIN 81 MG TAB.CHEW PO ×2 (10:17→22:00)
[2025-08-19 11:00] VITALS: BP 131/78; PULSE 74; RESP 18; TEMP 36.1; O2SAT 98
--- NOTE | 2025-08-19 13:41 | PM.IMPN1 ---
Assessment and Plan Assessment and plan (1) Closed displaced fracture of left femoral neck: Problem comment: S/p Left hip cemented bipolar hemiarthroplasty, 08/17/2025, Dr. Lord Postoperative recommendations per Orthopedic surgery as follows 1. Patient will be readmitted to the hospitalist service for postoperative medical management. 2. Weight bearing: Weightbearing as tolerated 3. Posterior hip precautions to operative hip. Abduction pillow to remain in place while patient is in bed. 4. Postoperative antibiotics: Ancef x2 doses postoperatively per protocol 5. Pain control: Oral and IV pain medications. 6. PT/OT consults for ambulation assistance/mobility education 7. DVT prophylaxis: Continue mechanical SCDs while in the hospital. -aspirin 81 mg b.i.d. for 35 days. 8. Follow up in Orthopedic Clinic in 1-2 weeks Nausea management with Zofran and Compazine as needed - resolved Continue with therapies director of medical staff services for discharge planning/placement needs, will plan for SNF Status: Acute (2) Osteoporosis: Problem comment: Previously treated with Reclast and Fosamax. Status: Acute (3) Dementia: Problem comment: At fairly high risk for hospital delirium. Apparently on aripiprazole for dementia associated agitation and anxiety -resume aripizazole and quetiapine postoperatively Status: Acute (4) Chronic constipation: Problem comment: with rectal evacuation disorder. Aggressive management postop with laxatives -scheduled MiraLax daily and senna b.i.d. Status: Chronic (5) Discharge planning issues: Problem comment: Likely will need [facility] facility for rehab after recovery from hip fracture surgery. director of medical staff services aware, will speak with patient's Status: Acute Plan Therapies over the weekend, SNF planning for Wednesday Total Time Spent Total Time Spent: Today I spent 45 minutes seeing the patient, reviewing Expanse and EPIC notes/diagnostics, discussing the care plan with our care time that includes social work, PT/OT, pharmacy, RT, [facility] and documenting my impressions and plan in the medical record. Subjective Date Seen: 08/19/25 Interval history: Patient is seen sitting up in a chair this morning. Reports feeling much better. Has been up her walker to the bathroom already this morning with significant pain improvement. No longer feels like jelly. Denies headache or dizziness. Denies chest pain or shortness of breath. Tolerating orals without nausea vomiting. Working with therapies, awaiting SNF placement. Exam Narrative: Exam Narrative: PHYSICAL EXAM General: Pleasant, conversant, NAD Cardiovascular: RRR Pulmonary: CTA bilaterally without rhonchi or wheezes. No dyspnea Neurological: Alert, answering questions appropriately Extremities: No gross joint deformity or swelling. Postoperative dressing in place, dry. Neurovascularly intact Skin: Warm, dry. Const: Vital Signs, click to edit/add: Vital Signs - 24 hr 08/18/25 15:00 08/18/25 15:00 08/18/25 15:00 Temperature 98.9 F Pulse Rate [Left P ulse Oximeter] 96 96 Respiratory Rate 16 16 16 Blood Pressure [Le ft Arm] 167/74 H Pulse Oximetry 96 96 Oxygen Delivery Me thod Room Air Room Air 08/18/25 19:00 08/18/25 23:25 08/18/25 23:30 Temperature 98.4 F 98.9 F Pulse Rate [Left P ulse Oximeter] 84 77 Respiratory Rate 18 16 16 Blood Pressure [Le ft Arm] 159/63 H 120/55 L Pulse Oximetry 92 95 95 Oxygen Delivery Me thod Room Air Room Air Room Air 08/19/25 04:04 08/19/25 07:00 08/19/25 07:00 Temperature 98.4 F 98.3 F Pulse Rate [Left P ulse Oximeter] 63 96 Respiratory Rate 16 18 18 Blood Pressure [Le ft Arm] 141/64 H 156/67 H Pulse Oximetry 94 96 96 Oxygen Delivery Me thod Room Air Room Air Room Air 08/19/25 07:00 08/19/25 11:00 Temperature 97.0 F L Pulse Rate [Left P ulse Oximeter] 96 74 Respiratory Rate 18 18 Blood Pressure [Le ft Arm] 131/78 Pulse Oximetry 98 Oxygen Delivery Me thod Room Air Labs Labs: Laboratory Results - last 24 hr 08/19/25 06:20 WBC 7.84 RBC 3.09 L Hgb 9.7 L Hct 30.4 L MCV 98 MCH 31 MCHC 32 Plt Count 145 Sodium 135 Potassium 3.6 Chloride 98 Carbon Dioxide 27 Anion Gap 10 BUN 21 Creatinine 0.7 Estimated Creat Clear 33.29 Estimated GFR 85 Glucose 106 Calcium 8.4
[2025-08-19 15:00] VITALS: BP 164/98; PULSE 79; RESP 18; TEMP 36.1; O2SAT 97; O2SAT 98
--- NOTE | 2025-08-19 18:41 | P.ORPN_ITS ---
Subjective Subjective Date Seen: 08/19/25 Principal diagnosis: POD 2, left hip bipolar hemiarthroplasty posterior approach Interval history: Patient reports doing well. Was able to walk some today in the hallways. No acute events over night. Pain managed with scheduled and PRN medications, ice. DVT prophylaxis: 81 mg aspirin by mouth twice daily, SCDs, walking. Denies fevers, chills, aches, N/V, CP, SOB/RODRÍGUEZ, or lightheadedness. Her is present this evening, and is curious about next steps for planning discharge, likely SNF. Ortho Exam Narrative Exam Narrative: -Patient appears comfortable in recliner; no apparent acute distress -Alert and oriented times 3 -Operative hip mildly swollen; soft tissues supple; no obvious erythema. Ecchymosis minimal. Warmth appropriate -Surgical dressing clean, dry, intact; no obvious drainage, no erythematous streaking peripheral to the bandage -Bilateral calves soft and supple; no significant swelling, edema, tenderness, erythema, discoloration, warmth, or palpable cords -2+ DP/PT pulses, intact dermatomes and myotomes distally (5/5 strength). Const Vital Signs, click to edit/add: Vital Signs - 24 hr 08/18/25 19:00 08/18/25 23:25 08/18/25 23:30 Temperature 98.4 F 98.9 F Pulse Rate [Left Pulse Oximeter] 84 77 Respiratory Rate 18 16 16 Blood Pressure [Left Arm] 159/63 H 120/55 L Pulse Oximetry 92 95 95 Oxygen Delivery Method Room Air Room Air Room Air 08/19/25 04:04 08/19/25 07:00 08/19/25 07:00 Temperature 98.4 F 98.3 F Pulse Rate [Left Pulse Oximeter] 63 96 Respiratory Rate 16 18 18 Blood Pressure [Left Arm] 141/64 H 156/67 H Pulse Oximetry 94 96 96 Oxygen Delivery Method Room Air Room Air Room Air 08/19/25 07:00 08/19/25 11:00 08/19/25 15:00 Temperature 97.0 F L Pulse Rate [Left Pulse Oximeter] 96 74 Respiratory Rate 18 18 18 Blood Pressure [Left Arm] 131/78 Pulse Oximetry 98 98 Oxygen Delivery Method Room Air Room Air 08/19/25 15:00 08/19/25 15:00 Temperature 97 F L Pulse Rate [Left Pulse Oximeter] 79 79 Respiratory Rate 18 18 Blood Pressure [Left Arm] 164/98 H Pulse Oximetry 97 Oxygen Delivery Method Room Air Assessment and Plan Assessment and plan (1) Closed displaced fracture of left femoral neck: Problem details: S/p Left hip cemented bipolar hemiarthroplasty, 08/17/2025, Dr. Lord Postoperative recommendations per Orthopedic surgery as follows 1. Patient will be readmitted to the hospitalist service for postoperative medical management. 2. Weight bearing: Weightbearing as tolerated 3. Posterior hip precautions to operative hip. Abduction pillow to remain in place while patient is in bed (x6 weeks) 4. Postoperative antibiotics: Ancef x2 doses postoperatively per protocol 5. Pain control: Oral and IV pain medications. Avoid oral narcotics if possible; so far patient has done well with Tylenol 6. PT/OT consults for ambulation assistance/mobility education 7. DVT prophylaxis: Continue mechanical SCDs while in the hospital. -aspirin 81 mg b.i.d. for 35 days. 8. Follow up in Orthopedic Clinic in 1-2 weeks Nausea management with Zofran and Compazine as needed - resolved Continue with therapies child protective services specialist for discharge planning/placement needs, will plan for SNF - would like to be notified when this conversation will take place tomorrow, 08/20/2025 Status: Acute (2) Osteoporosis: Problem details: Previously treated with Reclast and Fosamax. Status: Acute (3) Dementia: Problem details: At fairly high risk for hospital delirium. 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 Aggressive management postop with laxatives -scheduled MiraLax daily and senna b.i.d. Status: Chronic (5) Discharge planning issues: Problem details: Likely will need [facility] for [facility]hab after recovery from hip fracture surgery. child protective services specialist aware, will speak with patient's Status: Acute Plan - Complete 23 hour perioperative antibiotics. - PT/OT consult for education and assistance. - Social work consult for discharge planning - Prescribed analgesics as needed - DVT prophylaxis: 81 mg aspirin by mouth twice daily, walking, and SCDs - Anticipation is for discharge to SNF once bed is available and if the patient remains medically stable, pain is controlled, and they are safe with mobilization.
[2025-08-19 19:00] VITALS: BP 138/58; PULSE 79; RESP 18; TEMP 36.9; O2SAT 97
--- NOTE | 2025-08-19 19:27 | PC.NURSE ---
pt pleasant and cooperative with cares, assist of 1 w/walker. pt reported pain throughout shift, pain managed with active ice and prn Tylenol. pt reports improved of pain. Handle And Vent Machine Operator suggested pt offload weight with pillows, pt declined. cushion placed on chair Pt is up in chair sitting comfortably at this time
[2025-08-19] MEDS: SENNOSIDES 1 TAB TABLET 2 TAB PO (21:59)
[2025-08-19] MEDS: QUETIAPINE 25 MG TABLET 50 MG PO (22:00)
[2025-08-19 23:00] VITALS: PULSE 77; RESP 16; O2SAT 96
[2025-08-20] VITALS (9 sets, daily range): BP systolic 124–172; BP diastolic 57–95; PULSE 63–79; RESP 16–20; TEMP 36.4–36.9; O2SAT 94–100
--- NOTE | 2025-08-20 00:02 | PC.NURSE ---
End of shift Note 253 Patient was very pleasant and cooperative throughout shift. VSS. Afebrile. Assist of 1 with walker and gait belt. Patient declines the use of hospital's walker and insists on using walker brought from home. Education was given on how to properly stand from chair/bed/toilet. Uses call light appropriately. Call light within reach.
[2025-08-20] MEDS: ACETAMINOPHEN 500 MG TABLET 1000 MG PO ×4 (04:16→22:01)
[2025-08-20 06:28] LABS: Hemoglobin* 9.8 gm/dL (12.0-16.0)
--- NOTE | 2025-08-20 07:02 | PC.NURSE ---
Pt alert, oriented, and VSS. Some periods of confusion. 1a with walker and gait belt in the room. Abductor pillow in place. Right arm restricted. Pain tolerable with scheduled tylenol. Dressing C/D/I. Utilizes call light appropriately. Pt in bed, appears to be resting, call light within reach.
[2025-08-20] MEDS: SODIUM CHLORIDE 0.9 % (FLUSH) 10 ML SYRINGE 5 ML IVF ×2 (08:36→22:00)
[2025-08-20] MEDS: SENNOSIDES 1 TAB TABLET 2 TAB PO ×2 (08:36→22:01)
[2025-08-20] MEDS: ASPIRIN 81 MG TAB.CHEW PO ×2 (08:36→22:01)
--- NOTE | 2025-08-20 08:41 | PM.ORPN ---
Subjective Subjective Date Seen: 08/20/25 Principal diagnosis: POD 3, left hip bipolar hemiarthroplasty posterior approach Interval history: Patient reports doing well. No acute events over night. Pain managed with scheduled and PRN medications, ice. Not requiring oral narcotics for pain management. DVT prophylaxis: 81 mg aspirin by mouth twice daily, SCDs, walking. Denies fevers, chills, aches, N/V, CP, SOB/RODRÍGUEZ, or lightheadedness. Ortho Exam Narrative Exam Narrative: -Patient appears comfortable in recliner, having just returned from the bathroom; no apparent acute distress. -Alert and oriented times 3 -Operative hip mildly swollen; soft tissues supple; no obvious erythema. No significant ecchymosis. Warmth appropriate -Surgical dressing clean, dry, intact; no obvious drainage, no erythematous streaking peripheral to the bandage -Bilateral calves soft and supple; no significant swelling, edema, tenderness, erythema, discoloration, warmth, or palpable cords -2+ DP/PT pulses, intact dermatomes and myotomes distally (5/5 strength). Const Vital Signs, click to edit/add: Vital Signs - 24 hr 08/19/25 11:00 08/19/25 15:00 08/19/25 15:00 Temperature 97.0 F L 97 F L Pulse Rate [Bilateral Dorsalis Pedis] Pulse Rate [Left Pulse Oximeter] 74 79 Respiratory Rate 18 18 18 Blood Pressure [Left Arm] 131/78 164/98 H Pulse Oximetry 98 98 97 Oxygen Delivery Method Room Air Room Air Room Air 08/19/25 15:00 08/19/25 19:00 08/19/25 23:00 Temperature 98.4 F Pulse Rate [Bilateral Dorsalis Pedis] Pulse Rate [Left Pulse Oximeter] 79 79 77 Respiratory Rate 18 18 16 Blood Pressure [Left Arm] 138/58 L Pulse Oximetry 97 Oxygen Delivery Method Room Air 08/19/25 23:00 08/20/25 00:07 08/20/25 03:00 Temperature 98.5 F 98.2 F Pulse Rate [Bilateral Dorsalis Pedis] Pulse Rate [Left Pulse Oximeter] 77 63 Respiratory Rate 16 18 Blood Pressure [Left Arm] 124/57 L 137/63 Pulse Oximetry 96 96 97 Oxygen Delivery Method Room Air Room Air Room Air 08/20/25 08:25 Temperature 98.0 F Pulse Rate [Bilateral Dorsalis Pedis] 65 Pulse Rate [Left Pulse Oximeter] Respiratory Rate 16 Blood Pressure [Left Arm] 172/95 H Pulse Oximetry 100 Oxygen Delivery Method Room Air Assessment and Plan Assessment and plan (1) Closed displaced fracture of left femoral neck: Problem details: S/p Left hip cemented bipolar hemiarthroplasty, 08/17/2025, Dr. Lord Postoperative recommendations per Orthopedic surgery as follows 1. Patient will be readmitted to the hospitalist service for postoperative medical management. 2. Weight bearing: Weightbearing as tolerated 3. Posterior hip precautions to operative hip. Abduction pillow to remain in place while patient is in bed (x6 weeks) 4. Postoperative antibiotics: Ancef x2 doses postoperatively per protocol 5. Pain control: Oral and IV pain medications. Avoid oral narcotics if possible; so far patient has done well with Tylenol 6. PT/OT consults for ambulation assistance/mobility education 7. DVT prophylaxis: Continue mechanical SCDs while in the hospital. -aspirin 81 mg b.i.d. for 35 days. 8. Follow up in Orthopedic Clinic in 1-2 weeks Continue with therapies financial services consultant for discharge planning/placement needs, will plan for SNF - would like to be notified when this conversation will take place tomorrow, 08/20/2025 Status: Acute (2) Osteoporosis: Problem details: Previously treated with Reclast and Fosamax. Status: Acute (3) Dementia: Problem details: At fairly high risk for hospital delirium. 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 Aggressive management postop with laxatives -scheduled MiraLax daily and senna b.i.d. Status: Chronic (5) Discharge planning issues: Problem details: Likely will need half-way facility for rehab after recovery from hip fracture surgery. financial services consultant aware, will speak with patient's Status: Acute Plan - continue therapies with PT/OT - Social work consult for discharge planning - likely SNF - Prescribed analgesics as needed - avoid oral narcotics if possible - DVT prophylaxis: 81 mg aspirin by mouth twice daily 35 days, walking, and SCDs - Anticipation is for discharge to SNF once bed available
--- NOTE | 2025-08-20 14:37 | PC.NURSE ---
End of shift report: Patient has been up with assist of 1 and walker and gaitbelt X3 today. Worked with PT/OT. Tolerating a regular diet. Denies nausea. Is having some constipation for which she has received senna, miralax and a suppository. No BM yet. Void without difficulty. BP elevated at times, but denies headache, chest pain and shortness of breath. TEDs on lower extremities with plexy pulses. Incision is clean, dry and intact with some bruising around the bottom. CWMS are good. PIV patent and intact. Lung sounds clear. Alert and oriented but repeats herself at times. Sean was at bedside part of today. health services coordinator helping with short term rehab placement.
--- NOTE | 2025-08-20 15:19 | PM.IMPN1 ---
Assessment and Plan Assessment and plan (1) Closed displaced fracture of left femoral neck: Problem comment: S/p Left hip cemented bipolar hemiarthroplasty, 08/17/2025, Dr. Lord Postoperative recommendations per Orthopedic surgery as follows 1. Patient will be readmitted to the hospitalist service for postoperative medical management. 2. Weight bearing: Weightbearing as tolerated 3. Posterior hip precautions to operative hip. Abduction pillow to remain in place while patient is in bed (x6 weeks) 4. Postoperative antibiotics: Ancef x2 doses postoperatively per protocol 5. Pain control: Oral and IV pain medications. Avoid oral narcotics if possible; so far patient has done well with Tylenol 6. PT/OT consults for ambulation assistance/mobility education 7. DVT prophylaxis: Continue mechanical SCDs while in the hospital. -aspirin 81 mg b.i.d. for 35 days. 8. Follow up in Orthopedic Clinic in 1-2 weeks - Awaiting TCU placement Status: Acute (2) Osteoporosis: Problem comment: Previously treated with Reclast and Fosamax. Status: Acute (3) Dementia: Problem comment: -on aripiprazole for dementia associated agitation and anxiety -resume aripizazole and quetiapine postoperatively Status: Acute (4) Chronic constipation: Problem comment: with rectal evacuation disorder. Aggressive management postop with laxatives -scheduled MiraLax daily and senna b.i.d. Status: Chronic (5) Discharge planning issues: Problem comment: Likely will need half-way facility for rehab after recovery from hip fracture surgery. banking services officer aware, will speak with patient's Status: Acute Plan - per above, await TCU placement - Sean updated in [facility], questions answered Subjective Date Seen: 08/20/25 Interval history: Conchis was admitted to the hospital on 08/16 after mechanical fall at home; ER imaging revealed an acute comminuted and displaced left subcapital femoral neck fracture. She is s/p a Left hip cemented bipolar hemiarthroplasty with Dr. Lord of Orthopedic Surgery on 08/17. Comorbidities include dementia and osteoporosis, in addition to a remote history of breast cancer. Postoperatively, she has been doing well. Hemoglobin stable at 9.8 (preoperatively, was 12), vital signs appropriate. She has been working with therapies and TCU stay has been recommended. Mild postoperative constipation, no other concerns for hospitalist team this morning. Exam Narrative: Exam Narrative: GEN: Alert and sitting comfortably in bedside chair HEENT: EOMIs bilaterally, no scleral icterus CV: RRR, soft systolic murmur without concerning features R: LCTA bilaterally Ext: wwp, no concerning edema Skin: No concerning skin lesions or rashes on exposed skin Neuro: No focal deficits Psych: Appears to have mild cognitive impairment, otherwise appropriate Const: Vital Signs, click to edit/add: Vital Signs - 24 hr 08/19/25 19:00 08/19/25 23:00 08/19/25 23:00 Temperature 98.4 F Pulse Rate [Bilate ral Dorsalis Pedis ] Pulse Rate [Left P ulse Oximeter] 79 77 Respiratory Rate 18 16 Blood Pressure [Le ft Arm] 138/58 L Pulse Oximetry 97 96 Oxygen Delivery Me thod Room Air Room Air 08/20/25 00:07 08/20/25 03:00 08/20/25 08:25 Temperature 98.5 F 98.2 F 98.0 F Pulse Rate [Bilate ral Dorsalis Pedis ] 65 Pulse Rate [Left P ulse Oximeter] 77 63 Respiratory Rate 16 18 16 Blood Pressure [Le ft Arm] 124/57 L 137/63 172/95 H Pulse Oximetry 96 97 100 Oxygen Delivery Me thod Room Air Room Air Room Air 08/20/25 09:43 08/20/25 11:46 Temperature 98.4 F Pulse Rate [Bilate ral Dorsalis Pedis ] 77 Pulse Rate [Left P ulse Oximeter] Respiratory Rate 16 Blood Pressure [Le ft Arm] 155/74 H Pulse Oximetry 98 98 Oxygen Delivery Me thod Room Air Room Air Labs Labs: Laboratory Results - last 24 hr 08/20/25 05:54 Hgb 9.8 L
--- NOTE | 2025-08-20 16:25 | PC.SOCIAL ---
Discharge planning: Met with pt and in room regarding d/c plan. is requesting placement for short term rehab at [facility] as visiting her outside of [place] would be a challenge for him. If [facility] is unable to accept her, is requesting [facility] or either of the two facilities in [place], [place]. Resource list of [facility]dc facilities and their Department of Health ratings was provided to . Called and faxed information to [facility] for evaluation for admit. Received call back from [facility] in admissions stating they can accept pt 08/21/25 between noon and 2:00pm. is pleased with this plan and will be at the hospital prior to discharge and will arrive at [facility] at the same time as pt to be present for her admission there. is requesting transport by the hospital non-emergency EMS and is aware of the private pay estimate of cost of about $125 and agrees to pay this. municipal maintenance worker to follow up as needed.
--- NOTE | 2025-08-20 19:36 | PC.NURSE ---
End of shift [id number] - RN took over pt care at approximately 1530. Pt alert, oriented to self and place, and very cooperative. Up with assist x1 and walker/gait belt. Reported pain in L hip as a pulling feeling of her muscles, given scheduled medication per MAR at pt request. Dressing CDI, ice pack in place, and pedal pulse present. Pt tolerating RA and regular diet/fluids. Family at bedside during shift. Pt appears to be resting in bed at end of shift with call light within reach.
[2025-08-20] MEDS: QUETIAPINE 25 MG TABLET 50 MG PO (22:02)
[2025-08-21 01:46] VITALS: BP 148/63; PULSE 66; RESP 16; TEMP 36.5; O2SAT 99
--- NOTE | 2025-08-21 06:09 | PC.NURSE ---
[id number]: Patient pleasant and cooperative. Baseline dementia. A1/GB/walker. Tolerating activity well. Active ice to op site. Scheduled Tylenol for pain management. Anticipating D/C today to [facility]. Eating and voiding.
[2025-08-21] MEDS: ACETAMINOPHEN 500 MG TABLET 1000 MG PO (06:50)
[2025-08-21 07:00] VITALS: BP 157/71; PULSE 75; RESP 18; TEMP 36.6; O2SAT 97
--- NOTE | 2025-08-21 07:23 | PM.DS1 ---
DS: Providers Provider Date Seen: 08/21/25 Date of admission: 08/16/25 21:23 Primary care physician: Leo Fragoso MD Admitting Clinician: Barrington Taylor MD Consults: OT, PT, SW Attending Physician on discharge: Brandi Mahan MD Date of Discharge: 08/21/25 DS: Diagnosis Discharge Diagnosis (1) Closed displaced fracture of left femoral neck: Status: Acute Problem details: S/p Left hip cemented bipolar hemiarthroplasty, 08/17/2025, Dr. Lord Postoperative recommendations per Orthopedic surgery as follows 1. Patient will be readmitted to the hospitalist service for postoperative medical management. 2. Weight bearing: Weightbearing as tolerated 3. Posterior hip precautions to operative hip. Abduction pillow to remain in place while patient is in bed (x6 weeks) 4. Postoperative antibiotics: Ancef x2 doses postoperatively per protocol 5. Pain control: Oral and IV pain medications. Avoid oral narcotics if possible; so far patient has done well with Tylenol 6. PT/OT consults for ambulation assistance/mobility education 7. DVT prophylaxis: Continue mechanical SCDs while in the hospital. -aspirin 81 mg b.i.d. for 35 days. 8. Follow up in Orthopedic Clinic in 1-2 weeks (2) Osteoporosis: Status: Acute Problem details: - on Alendronate (3) Dementia: Status: Acute Problem details: -on aripiprazole and quetiapine for dementia associated agitation and anxiety (4) Chronic constipation: Status: Chronic Problem details: - with rectal evacuation disorder. Aggressive management postop with laxatives - scheduled MiraLax daily and senna b.i.d. (5) Discharge planning issues: Status: Acute Problem details: - requires TCU postoperatively DS: Summary Hospital Course Hospital Course: Conchis was admitted to the hospital on 08/16 after mechanical fall at home; ER imaging revealed an acute comminuted and displaced left subcapital femoral neck fracture. S/p a Left hip cemented bipolar hemiarthroplasty with Dr. Lord of Orthopedic Surgery on 08/17. Comorbidities include chronic constipation, dementia, and osteoporosis, in addition to a remote history of breast cancer. Postoperatively, she has been doing well. Hemoglobin stable at 9.8 (preoperatively, was 12), vital signs appropriate. She has been working with therapies and TCU stay has been recommended. Accepted at [facility] on 08/21/25, appropriate for d/c there with PCP and Ortho followup. Status at Discharge Functional status at discharge: uses cane/walker Overall status at discharge: patient is progressing back to baseline Time Spent with Patient Time attestation: Total time spent providing and/or coordinating discharge services: Time spent: Greater than 30 minutes Specific discharge activities: MDT discussion, medication reconciliation Exam Narrative: Exam Narrative: GEN: Alert HEENT: EOMIs bilaterally, no scleral icterus CV: RRR, No concerning murmurs R: LCTA bilaterally Skin: No concerning skin lesions or rashes on exposed skin Neuro: No focal deficits, no resting tremor Psych: Cognitive impairment is evident, no agitation Const: Vital Signs, click to edit/add: Vital Signs - 24 hr 08/20/25 08:25 08/20/25 09:43 08/20/25 11:46 Temperature 98.0 F 98.4 F Pulse Rate [Bilate ral Dorsalis Pedis ] 65 77 Pulse Rate [Left P ulse Oximeter] Respiratory Rate 16 16 Blood Pressure [Le ft Arm] 172/95 H 155/74 H Pulse Oximetry 100 98 98 Oxygen Delivery Me thod Room Air Room Air Room Air 08/20/25 15:00 08/20/25 15:00 08/20/25 20:25 Temperature 98.1 F 97.5 F L Pulse Rate [Bilate ral Dorsalis Pedis ] Pulse Rate [Left P ulse Oximeter] 76 73 Respiratory Rate 16 16 20 Blood Pressure [Le ft Arm] 160/70 H 165/78 H Pulse Oximetry 94 94 97 Oxygen Delivery Me thod Room Air Room Air Room Air 08/20/25 22:06 08/20/25 23:00 08/21/25 01:46 Temperature 98.2 F 97.7 F Pulse Rate [Bilate ral Dorsalis Pedis ] 79 Pulse Rate [Left P ulse Oximeter] 66 Respiratory Rate 18 18 16 Blood Pressure [Le ft Arm] 162/74 H 148/63 H Pulse Oximetry 97 97 99 Oxygen Delivery Me thod Room Air Room Air Room Air Discharge Plan Discharge Disposition: [facility] Date of Admission: 08/16/25 21:23 Attending Provider on Discharge: Brandi Mahan Consulting Providers: Bowen Lord Primary Care Provider: Reister,Bailey J Anticipated Discharge Date/Time: 08/21/25 10:00 Discharge Medications: New aspirin 81 mg tablet,delayed release (DR/EC) 81 mg PO BID Qty: 67 0RF Rx Instructions: Medication to help prevent blood clots postoperatively; take TWICE daily. acetaminophen 500 mg capsule 500 - 1,000 mg PO Q6H MDD 4000mg PRNQty: 100 0RF sennosides-docusate sodium [Senna-S] 8.6-50 mg tablet 1 - 2 tab-cap PO BID PRN (Reason: constipation) Qty: 30 0RF Rx Instructions: Hold medication if experiencing loose stools. Continued alendronate [Fosamax] 70 mg tablet 70 mg PO QWEEK Qty: 4 3RF quetiapine 25 mg tablet 50 mg PO HS triamcinolone acetonide 0.1 % cream 1 applic topical BID-TID aripiprazole [Abilify] 10 mg tablet 10 mg PO DAILY Discharge Orders: Discharge Order (Routine); Ordered 08/21/25 Ordered By: Brandi Mahan Consulting provider completed their portion of the discharge: Yes Activity Level: Activity as Tolerated, Weight Bearing as Tolerated, Don't flex hip more than 90 degrees and Use Walker Activity Detail: Wound: ? Remove surgical dressing after 1 week; remove dressing sooner if integrity is in question. ? No immersing wound in water; showering okay; light scrub with your hand and body soap, rinse, dab dry ? Sutures are under the skin, will dissolve; allow surgical glue to come off naturally; do not scrub the wound or apply ointments/lotions ? Call our office with any redness that streaks, excessive drainage from the wound, or wound gapping. Encourage SNF staff monitoring of wound. Ice/Elevate: ? Ice as needed for swelling and discomfort; elevate extremity frequently above the heart. Motion/Exercise: ? Weight bear as tolerated operative extremity (walker/cane for ambulation assistance as needed) ? Per PT/OT - posterior hip precautions ? Wedge pillow x6 weeks when sleeping/lying down. No crossing left leg over right when sleeping or in chair. ? Straight leg raises daily: 1-2 sets of 10 reps Pain Medications: ? Oral narcotic as prescribed. Wean as tolerated. Additional acetaminophen as needed. Blood Clot Prevention (DVT): ? Medication: 35 days 81 mg aspirin by mouth twice daily Driving: ? Do not drive while taking narcotic pain medication ? Anticipate 4-6 weeks no driving if operative leg is driving leg Dental: ? No elective dental work for 3 months post-op. If there is an urgent/emergent dental need, contact our office for an antibiotic prescription. Smoking/Alcohol: ? Do not smoke; do no drink alcohol especially when taking postoperative oral narcotic medication Seek Care from you Primary Care Provider if you experience the following issues in the postoperative phase and beyond: ? Bacterial infections such as: pneumonia, bacterial skin infection (cellulitis), UTI, high fever, chills unrelated to the operative body part - call your primary care physician urgently for treatment in hopes to protect your health and the metal implant. Referrals: ? PT, OT per patient preference - evaluate & treat total hip arthroplasty protocol, anterior approach (gait training, ROM, ADLs) ? Recommend continued PT for left shoulder rotator cuff tendinopathy as previously ordered by Dr. Blanca in July 2025. No left shoulder arthropathy. She may receive this shoulder PT at [facility] along with hip PT. Shoulder PT will benefit her for walker use. Vaccines: ? No vaccines until 4-6 weeks postop Follow-ups: ? with PA-C 1-2 weeks postop, or once discharged from SNF. Wound care per SNF staff if unable to be seen by PA-C in 1-2 weeks. ? with orthopedic surgeon 6 weeks postop If there are any acute concerns regarding your surgery, please call our orthopedic clinic ([phone]) Discharge Diet: Regular Follow Up Appointments: Leo Fragoso MD [Primary Care Provider, Internal Medicine] [facility]: [facility] Inst[facility] Admit to: SNF Discharge Potential: Good Length of Stay: <30 days Can use facility standing orders?: Yes Code Status: Full Code TEDs: Bilateral Knee Rehab Potential: Good Therapy: Physical Therapy and Occupational Therapy Therapy Orders: Evaluate and Treat, Total Hip Precautions and Other Therapy Orders Additional Information: Posterior hip precautions. Also L shoulder cuff tendinopathy Oxygen: No Urinary Catheter: No Glucose Checks: n/a Next INR: n/a Lab Orders: n/a Orders are good >30 days: Yes Signature: Brandi Mahan MD
[2025-08-21] MEDS: ASPIRIN 81 MG TAB.CHEW PO (07:59)
[2025-08-21] MEDS: SENNOSIDES 1 TAB TABLET 2 TAB PO (07:59)
[2025-08-21] MEDS: SODIUM CHLORIDE 0.9 % (FLUSH) 10 ML SYRINGE 5 ML IVF (08:01)
--- NOTE | 2025-08-21 09:59 | PC.SOCIAL ---
Discharge plan: Discharge orders secure emailed to [facility]. PAS completed and secure emailed to [facility] PAS#[id number]. Called and confirmed with admissions coordinater, Conchis, EMS arranged for 11:30 cone picker at the hospital for discharge.
--- NOTE | 2025-08-21 13:01 | PC.NURSE ---
Discharge - Pt alert, oriented to self and place. Pleasant, cooperative and able to follow directions. Pt up with assist x 1 with walker/gait belt. Reporting minimal pain in surgical hip, ice pack in place. Dressing CDI, pedal pulse present, and abductor pillow in place per MD order. Family at bedside, IV removed with catheter intact. Pt d/c'd to [address] [place] [address] via non-emergent EMS transport at approximately 1155.
== END 2025-08-21 11:55 | DRG 522 ==
LOC: ED 20:14 → MEDSURG 20:19
PROVIDERS: Orthopaedic Surgery; Physician Assistant; Admitting Provider Family Medicine; Emergency Provider Emergency Medicine; PCP Internal Medicine; Visit Provider Family Medicine
PROC: 0SRS0J9 Replacement of Left Hip Joint, Femoral Surface with Synthetic Substitute, Cemented, Open Approach (ICD-10-PCS; principal; 2025-08-17 07:30)
DX: S72.012A Unspecified intracapsular fracture of left femur, initial encounter for closed fracture (principal); F03.911 Unspecified dementia, unspecified severity, with agitation; F03.94 Unspecified dementia, unspecified severity, with anxiety; G89.18 Other acute postprocedural pain; W18.30XA Fall on same level, unspecified, initial encounter; Y92.000 Kitchen of unspecified non-institutional (private) residence as the place of occurrence of the external cause; M81.0 Age-related osteoporosis without current pathological fracture; K59.09 Other constipation; I73.9 Peripheral vascular disease, unspecified; E78.5 Hyperlipidemia, unspecified; Z85.3 Personal history of malignant neoplasm of breast
CPT/HCPCS: 01230; 36415; 51701; 64450; 71045; 73502; 73700; 76942; 80048; 80053; 83735; 85018; 85025; 85027; 85610; 97110; 97116; 97161; 97165; 97530; 97535; 99100; 99284; 99285; A9270; C1776; J0690; J0780; J1100; J1171; J2250; J2270; J2405; J2704; J2795; J3010; J3490; J7120

== ENCOUNTER 2025-08-21 11:45 | Outpatient (CLI) | payer MEDICARE, BC, SELFPAY | END 2025-08-21 11:46 | disposition home or self-care (01) | LOC: AMB 08-25 05:37 | PROVIDERS: PCP Internal Medicine; Visit Provider Emergency Medicine Emergency Medical Services | DX: M81.0 Age-related osteoporosis without current pathological fracture (principal); F03.90 Unspecified dementia, unspecified severity, without behavioral disturbance, psychotic disturbance, mood disturbance, and anxiety; Z96.642 Presence of left artificial hip joint | CPT/HCPCS: A0425; A0428 ==